=== PATIENT | male | born 1955 | race Caucasian/White ===

== ENCOUNTER → 2020-12-23 11:15 | Outpatient (BNVA) | payer SELFPAY | PROVIDERS: Visit Provider Nurse Practitioner Family | DX: Z20.822 Contact with and (suspected) exposure to COVID-19 (principal); J06.9 Acute upper respiratory infection, unspecified | CPT/HCPCS: 87426 ==

== ENCOUNTER → 2021-07-12 10:58 | Outpatient (BNVA) | payer SELFPAY | PROVIDERS: Visit Provider Nurse Practitioner Family | DX: Z20.822 Contact with and (suspected) exposure to COVID-19 (principal) | CPT/HCPCS: 87635 ==

== ENCOUNTER 2021-07-17 14:55 | Inpatient (IN) | payer SELFPAY ==
[2021-07-17] VITALS (9 sets, daily range): BP systolic 90–133; BP diastolic 49–80; PULSE 91–114; RESP 20–31; TEMP 36.1–37; O2SAT 91–96; BMI 16.2; BMI 22.1
--- NOTE | 2021-07-17 15:07 | XR_ITS ---
WS: [id number] Portable AP upright chest, 07/17/2021 Clinical Data: covid Comparison: None. Findings: No nodules, masses or effusions are seen. The heart is enlarged. The pulmonary vascularity is not increased. No pneumonia or pneumothorax is seen. Monitor leads are on the chest wall. XR/XR chest 1V portable [id number] Impression: Cardiomegaly.
--- NOTE | 2021-07-17 15:16 | ED_ITS ---
HPI - COVID General: Chief Complaint: COVID symptoms Stated Complaint: covid positive Time Seen by Provider: 07/17/21 15:07 Triage information: Has fever, cough or shortness of breath . Exposure to COVID + person last 14 days COVID Results: SARS-CoV-2 Antigen (Rapid) Negative (Negative) 12/23/20 11:15 12/23/20 SARS-CoV-2 (PCR) Detected (NOT DETECT) A 07/12/21 10:58 07/12/21 Coronavirus Type 229E (PCR) Not detected (NOT DETECT) 07/12/21 10:58 07/12/21 COUNTS INCLUDE 234 BEDS AT THE [facility] ED PFS: Social History Smoking and tobacco status: current every day smoker Course Vital Signs: Vital signs: Vital Signs Temperature 98.6 F 07/17/21 15:07 Pulse Rate 114 H 07/17/21 15:07 Respiratory Rate 22 H 07/17/21 15:07 Blood Pressure 133/79 07/17/21 15:07 Pulse Oximetry 96 07/17/21 15:11 MDM - COVID Lab Data : 07/17/21 15:15 07/17/21 15:42 Laboratory Results WBC 5.5 10^3/uL (4.0-10.0) 07/17/21 15:15 RBC 4.04 10^6/uL (4.1-5.3) L 07/17/21 15:15 Hgb 13.3 g/dL (11.7-16.6) 07/17/21 15:15 Hct 38.7 % (42.0-52.0) L 07/17/21 15:15 MCV 95.8 fl (80-94) H 07/17/21 15:15 MCH 32.9 pg (28.0-34.0) 07/17/21 15:15 MCHC 34.4 g/dL (30.0-36.0) 07/17/21 15:15 RDW 16.8 % (12.1-15.1) H 07/17/21 15:15 Plt Count 77 10^3/cmm (130-400) L 07/17/21 15:15 MPV 11.1 fL (7.4-10.4) H 07/17/21 15:15 Neut % (Auto) 92.0 % 07/17/21 15:15 Lymph % (Auto) 3.5 % 07/17/21 15:15 Chicot % (Auto) 2.9 % 07/17/21 15:15 Eos % (Auto) 0.0 % 07/17/21 15:15 Baso % (Auto) 0.9 % 07/17/21 15:15 Neut # (Auto) 5.01 10^3/uL (1.8-7.7) 07/17/21 15:15 Lymph # (Auto) 0.2 10^3/uL (0.8-4.8) L 07/17/21 15:15 Chicot # (Auto) 0.2 10^3/uL (0.2-0.9) 07/17/21 15:15 Eos # (Auto) 0.0 10^3/uL (0.0-0.8) 07/17/21 15:15 Baso # (Auto) 0.1 10^3/uL (0.0-0.1) 07/17/21 15:15 Nucleated RBC % (auto) 0 % 07/17/21 15:15 Nucleated RBCs # 0.0 /100WBC 07/17/21 15:15 Sodium Cancelled 07/17/21 15:15 Potassium Cancelled 07/17/21 15:15 Chloride Cancelled 07/17/21 15:15 Carbon Dioxide Cancelled 07/17/21 15:15 Anion Gap Cancelled 07/17/21 15:15 BUN Cancelled 07/17/21 15:15 Creatinine Cancelled 07/17/21 15:15 GFR Calculation Cancelled 07/17/21 15:15 Glucose Cancelled 07/17/21 15:15 Calculated Osmolality Cancelled 07/17/21 15:15 Calcium Cancelled 07/17/21 15:15 SARS-CoV-2 Antigen (Rapid) Negative (Negative) 12/23/20 11:15 12/23/20 SARS-CoV-2 (PCR) Detected (NOT DETECT) A 07/12/21 10:58 07/12/21 Coronavirus Type 229E (PCR) Not detected (NOT DETECT) 07/12/21 10:58 07/12/21 Discharge Plan Discharge Patient Disposition: Home Clinical Impression: Generalized weakness, Dehydration, COVID Condition: Stable Prescriptions: New Zofran 4 mg tablet 4 mg PO TID PRN (Reason: nausea and vomiting) 4 Days Qty: 12 0RF acetaminophen 500 mg tablet 500 mg PO Q6H PRN (Reason: pain) 5 Days Qty: 20 0RF Pepcid 20 mg tablet 20 mg PO BID PRN (Reason: abdominal pain) 10 Days Qty: 20 0RF Maalox Advanced 1,000-60 mg tablet,chewable 1 tab PO TID PRN (Reason: abdominal pain) 7 Days Qty: 21 0RF Discharge Diet: Advance as tolerated Discharge Activity: Increase activity as tolerated Patient Instructions: COVID-19 (Coronavirus Disease 2019) (ED) Activity Restrictions/Additional Instructions: Come back to the emergency room if your symptoms worsen, have any shortness of breath, fever/chills, dehydration, inability tolerate food or drinks, any difficulty breathing, or any new or concerning complaints. Please return the emergency room if your pulse ox reads less than 88%. Coding Level of Care Code ED Lead Maintenance Technician for Jethro Hernandez
[2021-07-17 15:23] LABS: Basophils # 0.1 10^3/uL (0.0-0.1); Basophils % 0.9 %; Hematocrit 38.7 % (42.0-52.0); Hemoglobin 13.3 g/dL (11.7-16.6); Lymphocytes # 0.2 10^3/uL (0.8-4.8); Lymphocytes % 3.5 %; Mean Corpuscular HGB Conc 34.4 g/dL (30.0-36.0); Mean Corpuscular Hemoglobin 32.9 pg (28.0-34.0); Mean Corpuscular Volume 95.8 fl (80-94); Mean Platelet Volume 11.1 fL (7.4-10.4); Monocytes # 0.2 10^3/uL (0.2-0.9); Monocytes % 2.9 %; Neutrophils # 5.01 10^3/uL (1.8-7.7); Nucleated Red Blood Cells % 0 %; Platelet Count 77 10^3/cmm (130-400); Red Blood Count 4.04 10^6/uL (4.1-5.3); Red Cell Distribution Width 16.8 % (12.1-15.1); White Blood Count 5.5 10^3/uL (4.0-10.0)
[2021-07-17] MEDS: acetaminophen 500 mg Tablet PO (15:31)
[2021-07-17] MEDS: sodium chloride 0.9% 1,000 ML 999 ML IV (15:31)
[2021-07-17] MEDS: famotidine 20 mg/2 mL INJ IVP (15:31)
--- NOTE | 2021-07-17 15:48 | W.ED.GENADLT ---
HPI - General Adult General: Chief complaint: COVID symptoms Stated complaint: covid positive Time Seen by Provider: 07/17/21 15:07 History of Present Illness: CC: Shortness of breath, fever and generalized weakness HPI: This is a 66 yo patient w/ hx of COVID diagnosis from 5 days ago presenting to the ED with malaise, generalized weakness, cough sputum production, and fever at home x 5days. Since onset of symptoms, has had some shortness of breath and decreased PO intake. NO recent travel. +Reports nausea and diarreha. Denies chest pain, vomiting, diaphoresis, exertional shortness of breath, GI or other complaints. Denies any pleuritic chest pain, recent surgery/immobilization/travel, or hematemesis or hx of VTE in the past. Onset: 5 days ago Duration: ongoing for the last 5 days Location: home Severity: mild/moderate Associated symptoms: Reports dyspnea and nausea; Deny chest pain, rash, palpitations or vomiting Review of Systems Const: Reports: fever(s), chills, body aches, fatigue and other (+generalized wekaness) Eyes: Denies: change in vision ENMT: Denies: mouth pain Card: Denies: chest pain or palpitations Resp: Reports: dyspnea; Denies: non-productive cough GI: Reports: nausea and diarrhea; Denies: abdominal pain or vomiting : Denies: dysuria Musc: Denies: extremity pain Skin/Breast: Denies: rash or new lesions Neuro: Denies: weakness in extremities Psych: Reports: other (Normal mood) Giancarlo/Lymph: Denies: easy bruising PFS ED PFSH: Medical History COVID Social History Smoking and tobacco status: current every day smoker Alcohol intake: never Substance/Drug Use: never Physical Exam Const: COMMON NORMALS: alert HENMT: COMMON NORMALS: atraumatic HEAD & SCALP: atraumatic MOUTH: moist mucous membranes abnormal Eye: COMMON NORMALS: EOMs intact bilaterally and conjunctivae normal CONJUNCTIVA: Yes conjunctivae normal Neck/C-Spine: COMMON NORMALS: full ROM and supple Resp: COMMON NORMALS: normal respiratory effort OTHER: +decreased breath sounds b/l Cardio: COMMON NORMALS: regular rhythm RATE: tachycardic RHYTHM: regular rhythm GI: COMMON NORMALS: Soft to palpation and non-tender PALPATION: Yes Soft to palpation Extremity: COMMON NORMALS: full ROM Neuro: SENSORIUM/ORIENTATION: Yes alert MOTOR EXAM: No Abnormal motor strength present and Other motor observations present (no focal motor deficits) Psych: COMMON NORMALS: speech normal SPEECH: Yes normal speech MOOD & AFFECT: Yes euthymic mood Course Vital Signs: Vital signs: Vital Signs Temperature 101.9 F H 07/21/21 07:00 Pulse Rate 89 07/21/21 09:15 Respiratory Rate 18 07/21/21 09:49 Blood Pressure 120/76 07/21/21 09:15 Pulse Oximetry 95 07/21/21 09:49 [facility] - General Adult Medical Decision Making [66]yo patient presenting to the ED with shortness of breath, cough, nausea, diarrhea and malaise concerning for COVID and dehydration. Given History, Exam, and Workup presentation most consistent with pneumonia.Presentation not consistent with PE, COPD exacerbation, Pneumothorax, TB, Atypical ACS, Esophageal Rupture, Toxic Exposure, Foreign Body Airway Obstruction. Workup: CBC, BMP, XR chest Intervention: IVF, pepcid, tylenol zofran On reassessment, patient was noted to be hypotensive with blood pressure of 80/40 and hypoxemic to 88% after IVF. Decision was made at which point to evaluate for PE. CTA negative for PE however there is no findings of cirrhosis on CTA. Albumin of 2.5 today. BP stabilized around 90/50. Patient does not know nor is aware that he has cirrhosis when I discussed the incidental cirrhosis findings on the CTA chest. I suspect that patient may have been third spacing from the 1.5 L of fluid given total. Patient's mental status has significantly improved after IVF. Patient is receiving albumin currently. However given low blood pressure and new onset hypoxemia, patient remitted to hospital for albumin and receive slow rehydration. Disposition: admission Lab Data : 07/21/21 04:25 07/21/21 04:25 Radiology Impressions Chest CTA 07/17/21 18:35 IMPRESSION: 1. No evidence for pulmonary embolus. Evaluation of the smaller arteries is limited by significant breathing motion artifact. 2. No acute pulmonary finding. 3. Liver cirrhosis with portal venous hypertension. 4. Splenomegaly. Liver Ultrasound 07/18/21 11:48 IMPRESSION: 1. Technically very limited evaluation of the RIGHT upper quadrant due to lack of cooperation and short of breath. 2. Moderate hepatomegaly with changes of cirrhosis. Unable to evaluate the portal vein for reversal of flow. 3. Small amount of gallbladder sludge with no stones identified. Head CT 07/20/21 08:55 IMPRESSION: 1. Similar appearing subacute infarct in the left temporal region 2. Mild presumed small vessel ischemic disease of indeterminate age. 3. No acute intracranial hemorrhage. Head/Neck CTA 07/20/21 08:55 IMPRESSION: 1. Irregular area of low density in the left temporal lobe with loss of garcia-white matter differentiation consistent with a subacute infarct. 2. No significant stenosis nor large vessel occlusion. IMPRESSION: No hemodynamically significant stenosis or occlusion. REFERENCES: NASCET CRITERIA. The degree of internal carotid artery stenosis is based on NASCET criteria. Normal is no stenosis. Mild is less than 50% stenosis. Moderate is 50-69% stenosis. Severe is 70% to 99% stenosis. Total occlusion is no detectable patent lumen. Carotid Doppler Study 07/20/21 18:20 IMPRESSION: 1. Suboptimal examination due to poor patient positioning and inability to cooperate. 2. No definite arterial stenosis involving the visualized carotid arteries. 3. A large bandage over the right neck obscures evaluation of the left mid and distal internal carotid artery. 4. No definite flow is seen in the left vertebral artery. This could be due to poor patient positioning or arterial occlusion. 5. All of the waveforms (both internal carotid and common carotid) show high resistance flow. 6. Heterogeneous atherosclerotic plaque in the carotid bulb. 7. Consider CTA to further assess. REFERENCES: SRU CRITERIA. The degree of internal carotid artery stenosis is based on criteria defined by the Society of Radiologists in Ultrasound (SRU). Normal is no stenosis. Mild is less than 50% stenosis. Moderate is 50-69% stenosis. Severe is greater than 69% stenosis to near occlusion. Near occlusion is a markedly narrowed lumen. Total occlusion is no detectable patent lumen. ADDENDUM: 07/20/[address] Estrada at 07/20/2021 8:47 AM CDT. Chest X-Ray 07/21/21 07:00 IMPRESSION: Persistent bilateral airspace opacities. KUB X-Ray 07/21/21 08:24 IMPRESSION: Nasogastric tube position as above. No acute abdominal abnormality. Laboratory Results WBC 5.5 10^3/uL (4.0-10.0) 07/17/21 15:15 RBC 4.04 10^6/uL (4.1-5.3) L 07/17/21 15:15 Hgb 13.3 g/dL (11.7-16.6) 07/17/21 15:15 Hct 38.7 % (42.0-52.0) L 07/17/21 15:15 MCV 95.8 fl (80-94) H 07/17/21 15:15 MCH 32.9 pg (28.0-34.0) 07/17/21 15:15 MCHC 34.4 g/dL (30.0-36.0) 07/17/21 15:15 RDW 16.8 % (12.1-15.1) H 07/17/21 15:15 Plt Count 77 10^3/cmm (130-400) L 07/17/21 15:15 MPV 11.1 fL (7.4-10.4) H 07/17/21 15:15 Neut % (Auto) 92.0 % 07/17/21 15:15 Lymph % (Auto) 3.5 % 07/17/21 15:15 Maries % (Auto) 2.9 % 07/17/21 15:15 Eos % (Auto) 0.0 % 07/17/21 15:15 Baso % (Auto) 0.9 % 07/17/21 15:15 Neut # (Auto) 5.01 10^3/uL (1.8-7.7) 07/17/21 15:15 Lymph # (Auto) 0.2 10^3/uL (0.8-4.8) L 07/17/21 15:15 Maries # (Auto) 0.2 10^3/uL (0.2-0.9) 07/17/21 15:15 Eos # (Auto) 0.0 10^3/uL (0.0-0.8) 07/17/21 15:15 Baso # (Auto) 0.1 10^3/uL (0.0-0.1) 07/17/21 15:15 Nucleated RBC % (auto) 0 % 07/17/21 15:15 Nucleated RBCs # 0.0 /100WBC 07/17/21 15:15 Sodium 130 mmol/L (136-145) L 07/17/21 15:42 Sodium Cancelled 07/17/21 15:42 Potassium 3.1 mmol/L (3.5-5.1) L 07/17/21 15:42 Potassium Cancelled 07/17/21 15:42 Chloride 95 mmol/L (98-107) L 07/17/21 15:42 Chloride Cancelled 07/17/21 15:42 Carbon Dioxide 17 mmol/L (22-29) L 07/17/21 15:42 Carbon Dioxide Cancelled 07/17/21 15:42 Anion Gap 21.1 (5-19) H 07/17/21 15:42 Anion Gap Cancelled 07/17/21 15:42 BUN 39 mg/dL (8-23) H 07/17/21 15:42 BUN Cancelled 07/17/21 15:42 Creatinine 1.4 mg/dL (0.7-1.2) H 07/17/21 15:42 Creatinine Cancelled 07/17/21 15:42 GFR Calculation 51.0 mL/min (90-130) L 07/17/21 15:42 GFR Calculation Cancelled 07/17/21 15:42 Glucose 120 mg/dL (65-115) H 07/17/21 15:42 Glucose Cancelled 07/17/21 15:42 Calculated Osmolality 281 mOsm/kg (285-295) L 07/17/21 15:42 Calculated Osmolality Cancelled 07/17/21 15:42 Calcium 8.3 mg/dL (8.5-10.5) L 07/17/21 15:42 Calcium Cancelled 07/17/21 15:42 Total Bilirubin 4.6 mg/dL (0.15-1.2) H 07/17/21 15:42 AST 61 U/L (0-40) H 07/17/21 15:42 ALT 37 U/L (0-41) 07/17/21 15:42 Alkaline Phosphatase 70 IU/L (40-130) 07/17/21 15:42 Ammonia 71 umol/L (16-60) H 07/17/21 20:32 Total Protein 8.7 g/dL (6.6-8.7) 07/17/21 15:42 Albumin 2.8 g/dL (3.5-5.2) L 07/17/21 15:42 Globulin 5.9 g/dL (1.3-4.6) H 07/17/21 15:42 Ethyl Alcohol < 10 mg/dL (0-10) 07/17/21 15:42 Imaging Data Other Imaging: Radiologist's impression: [employer] [address] [address] Scan Report Signed Patient: Luis Gutierrez Unit #: [id number] : 1955 Age/Sex: 66 / M ADM Date: 07/17/21 Loc: ER Room/Bed: Attending Dr: Ordering Provider/Ordering MD: Clarence Thompson MD Date of Service: 07/17/21 Procedure(s): CT angio chest PE protcl [id number] Accession Number(s): [id number] Report Number: [id number] PROCEDURE INFORMATION: Exam: CTA Chest With Contrast Exam date and time: 07/17/2021 6:35 PM Age: 66 years old Clinical indication: Shortness of breath; Additional info: Eval for pe TECHNIQUE: Imaging protocol: Computed tomographic angiography of the chest with contrast. 3D rendering (Not supervised by radiologist): MIP and/or 3D reconstructed images were created by the technologist. Radiation optimization: All CT scans at this facility use at least one of these dose optimization techniques: automated exposure control; mA and/or kV adjustment per patient size (includes targeted exams where dose is matched to clinical indication); or iterative reconstruction. Contrast material: VISI 320; Contrast volume: 95 ml; Contrast route: INTRAVENOUS (IV);? COMPARISON: CR XR chest 1V portable [id number] 07/17/2021 3:21 PM RADIATION DOSE METRICS: Total DLP (mGy-cm): 600.21 FINDINGS: Pulmonary arteries: No filling defects identified within the pulmonary arteries. Evaluation of the smaller arteries is limited by significant breathing motion artifact. Aorta: Unremarkable. No aortic aneurysm. No aortic dissection. Veins: Recanalized umbilical vein and mild gastroesophageal varices, consistent with portal venous hypertension. Lungs: Calcified granuloma in the right upper lobe. Minimal scattered atelectasis in both lungs. No consolidation. Pleural spaces: Unremarkable. No pneumothorax. No pleural effusion. Heart: Coronary artery calcifications. The heart size is upper normal. Lymph nodes: Calcified right hilar lymph nodes. Liver: Cirrhotic appearing liver with a nodular contour. Spleen: Splenomegaly with calcified granulomas. Bones/joints: Unremarkable. No acute fracture. Soft tissues: Unremarkable. CT/CT angio chest PE protcl [id number] IMPRESSION: 1. No evidence for pulmonary embolus.? Evaluation of the smaller arteries is limited by significant breathing motion artifact. 2. No acute pulmonary finding. 3. Liver cirrhosis with portal venous hypertension. 4. Splenomegaly.? ? Dictated By: Richard Murray Signed By: Richard Murray Signed Date/Time: 07/17/211918 DD/ [address] [address] XRay Report Signed Patient: Luis Gutierrez Unit #: [id number] : 1955 Age/Sex: 66 / M ADM Date: 07/17/21 Loc: ER Room/Bed: Attending Dr: Ordering Provider/Ordering MD: Clarence Thompson MD Date of Service: 07/17/21 Procedure(s): XR chest 1V portable [id number] Accession Number(s): [id number] Report Number: [id number] WS: [id number] Portable AP upright chest, 07/17/2021 Clinical Data: covid Comparison: None. Findings: No nodules, masses or effusions are seen. The heart is enlarged. The pulmonary vascularity is not increased. No pneumonia or pneumothorax is seen. Monitor leads are on the chest wall. XR/XR chest 1V portable [id number] Impression: Cardiomegaly. ? Dictated By: Radha Cordero MD Signed By: Radha Cordero MD Signed Date/Time: 07/17/216 DD/ 44 Discharge Plan Discharge Patient Disposition: Home Clinical Impression: Generalized weakness, Dehydration, COVID Condition: Stable Discharge Diet: Advance as tolerated Discharge Activity: Increase activity as tolerated Coding Level of Care Code ED Associate Professor Of Forestry for Chg Fwd Exam Comprehensive
[2021-07-17] MEDS: sodium chloride 0.9% 500 ML IV (16:16)
[2021-07-17] MEDS: ondansetron 2 mg/ML SDV 2 mL 4 MG IVP (16:16)
[2021-07-17] MEDS: potassium chloride ER 20 mEq Tablet 40 MEQ PO (18:17)
[2021-07-17] MEDS: potassium chloride ER 20 mEq Tablet PO (18:17)
[2021-07-17] MEDS: calcium gluconate 0.9% NaCL 1 GM/50 ML PREMIX IV ×2 (18:20→19:54)
--- NOTE | 2021-07-17 18:35 | CTR_ITS ---
PROCEDURE INFORMATION: Exam: CTA Chest With Contrast Exam date and time: 07/17/2021 6:35 PM Age: 66 years old Clinical indication: Shortness of breath; Additional info: Eval for pe TECHNIQUE: Imaging protocol: Computed tomographic angiography of the chest with contrast. 3D rendering (Not supervised by radiologist): MIP and/or 3D reconstructed images were created by the technologist. Radiation optimization: All CT scans at this facility use at least one of these dose optimization techniques: automated exposure control; mA and/or kV adjustment per patient size (includes targeted exams where dose is matched to clinical indication); or iterative reconstruction. Contrast material: VISI 320; Contrast volume: 95 ml; Contrast route: INTRAVENOUS (IV); COMPARISON: CR XR chest 1V portable [id number] 07/17/2021 3:21 PM RADIATION DOSE METRICS: Total DLP (mGy-cm): 600.21 FINDINGS: Pulmonary arteries: No filling defects identified within the pulmonary arteries. Evaluation of the smaller arteries is limited by significant breathing motion artifact. Aorta: Unremarkable. No aortic aneurysm. No aortic dissection. Veins: Recanalized umbilical vein and mild gastroesophageal varices, consistent with portal venous hypertension. Lungs: Calcified granuloma in the right upper lobe. Minimal scattered atelectasis in both lungs. No consolidation. Pleural spaces: Unremarkable. No pneumothorax. No pleural effusion. Heart: Coronary artery calcifications. The heart size is upper normal. Lymph nodes: Calcified right hilar lymph nodes. Liver: Cirrhotic appearing liver with a nodular contour. Spleen: Splenomegaly with calcified granulomas. Bones/joints: Unremarkable. No acute fracture. Soft tissues: Unremarkable. CT/CT angio chest PE protcl [id number] IMPRESSION: 1. No evidence for pulmonary embolus. Evaluation of the smaller arteries is limited by significant breathing motion artifact. 2. No acute pulmonary finding. 3. Liver cirrhosis with portal venous hypertension. 4. Splenomegaly.
[2021-07-17] MEDS: iodixanol 320 mg/mL 100mL Btl IV (18:48)
[2021-07-17] MEDS: dexamethasone 10 mg/mL INJ 6 MG IVP (19:32)
[2021-07-17 19:45] LABS: Anion Gap 21.1 (5-19); Carbon Dioxide 17 mmol/L (22-29); Chloride 95 mmol/L (98-107); Potassium 3.1 mmol/L (3.5-5.1); Sodium 130 mmol/L (136-145)
[2021-07-17 19:46] LABS: Blood Urea Nitrogen 39 mg/dL (8-23); Calcium 8.3 mg/dL (8.5-10.5); Glucose 120 mg/dL (65-115); Osmolality Calculated 281 mOsm/kg (285-295)
[2021-07-17 20:02] LABS: Alanine Aminotransferase 37 U/L (0-41); Alkaline Phosphatase 70 IU/L (40-130); Total Protein 8.7 g/dL (6.6-8.7)
[2021-07-17 20:03] LABS: Albumin Level 2.8 g/dL (3.5-5.2); Aspartate Amino Transferase 61 U/L (0-40); Globulin 5.9 g/dL (1.3-4.6); Total Bilirubin 4.6 mg/dL (0.15-1.2)
[2021-07-17] MEDS: remdesivir 200 MG in sodium chloride 0.9% (100 ml) 60 ML 100 MG IV (20:32)
[2021-07-17 20:58] LABS: Ammonia 71 umol/L (16-60)
[2021-07-17 23:04] LABS: Alcohol Level < 10 mg/dL (0-10)
--- NOTE | 2021-07-17 23:34 | PC.NURSE ---
Pt's right eye appears yellow, right eye very bloodshot. Both eyes have moderate amount of yellow drainage. Pt is A/O x 4, but short-term memory seems to be poor.
--- NOTE | 2021-07-17 23:40 | PC.NURSE ---
Right pupil 3 mm, left pupil 2 mm
[2021-07-18] VITALS (43 sets, daily range): BP systolic 81–154; BP diastolic 50–102; PULSE 66–160; RESP 19–38; TEMP 35.8–37; O2SAT 85–95
[2021-07-18] MEDS: lactulose oral liq 20 gm/30 mL UDC 10 GM PO ×5 (00:01→22:33)
[2021-07-18] MEDS: sodium chlor 0.9% + KCl 20 mEq 20 MEQ/1,000 ML BAG 50 MEQ IV (00:02)
[2021-07-18] MEDS: acetaminophen 325 mg Tablet 650 MG PO (00:43)
[2021-07-18] MEDS: benzonatate 100 mg Capsule PO ×2 (00:43→08:36)
[2021-07-18] MEDS: FUROsemide 10 mg/mL SDV 4mL 40 MG IVP ×2 (01:55→17:24)
[2021-07-18] MEDS: guaiFENesin 100 mg/5 mL UDC 10 mL 400 MG PO (01:56)
--- NOTE | 2021-07-18 02:08 | PC.NURSE ---
Pt appears restless, increased work of breathing, tachycardia, increased cough. Physician will be notified.
--- NOTE | 2021-07-18 02:11 | PC.NURSE ---
RT notified of pt's increased oxygen demand, will bring high flow nasal cannula.
[2021-07-18] MEDS: ipratropium-albuterol 3 mL Neb INHALATION ×4 (02:28→21:58)
--- NOTE | 2021-07-18 02:51 | PC.NURSE ---
Pt remains alert and oriented to person, place, time, and situation. Pt does not clearly remember coming to the hospital. He is restless and impulsive. Short term memory continues to be inadequate. Pt reports that his last drink was 2 weeks ago, and he has not smoked cigarettes in 2 weeks. Pt's sister tells me that this is not true, and her brother starts drinking mid-morning, and does not stop until he falls asleep at night.
[2021-07-18 03:44] LABS: Basophils % 0.4 %; Eosinophils # 0.1 10^3/uL (0.0-0.8); Eosinophils % 0.5 %; Hematocrit 41.4 % (42.0-52.0); Hemoglobin 13.9 g/dL (11.7-16.6); Lymphocytes # 0.3 10^3/uL (0.8-4.8); Mean Corpuscular HGB Conc 33.6 g/dL (30.0-36.0); Mean Corpuscular Hemoglobin 33.2 pg (28.0-34.0); Mean Corpuscular Volume 98.8 fl (80-94); Mean Platelet Volume 12.3 fL (7.4-10.4); Monocytes # 0.2 10^3/uL (0.2-0.9); Monocytes % 2.4 %; Neutrophils % 92.5 %; Nucleated Red Blood Cells % 0 %; Platelet Count 77 10^3/cmm (130-400); Red Blood Count 4.19 10^6/uL (4.1-5.3); Red Cell Distribution Width 17.3 % (12.1-15.1); White Blood Count 9.7 10^3/uL (4.0-10.0)
[2021-07-18 04:11] LABS: Slide Review Slide Review Perform
--- NOTE | 2021-07-18 04:14 | PC.NURSE ---
Pt calm. Urinary catheter placement discussed with patient. Pt agreed to placement. Upon insertion of the catheter into urinary meatus, pt began screaming and thrashing. Pt refused catheter placement, but did agree to try to void. Pt voided 500 mls and had an equal amount of urine miss the urinal due to screaming and thrashing while urinating.
[2021-07-18 04:20] LABS: Alanine Aminotransferase 33 U/L (0-41); Albumin Level 3.1 g/dL (3.5-5.2); Alkaline Phosphatase 74 IU/L (40-130); Anion Gap 19.9 (5-19); Aspartate Amino Transferase 53 U/L (0-40); Blood Urea Nitrogen 38 mg/dL (8-23); Calcium 9.2 mg/dL (8.5-10.5); Carbon Dioxide 17 mmol/L (22-29); Chloride 98 mmol/L (98-107); Creatinine Clr Calc Pharmacy 52.2318; Globulin 5.3 g/dL (1.3-4.6); Glomerular Filtration Rate 67.4 mL/min (90-130); Glucose 178 mg/dL (65-115); Magnesium 2.4 mg/dL (1.7-2.3); Osmolality Calculated 285 mOsm/kg (285-295); Potassium 3.9 mmol/L (3.5-5.1); Sodium 131 mmol/L (136-145); Thyroid Stimulating Hormone 1.47 uIU/mL (0.27-4.20); Total Bilirubin 4.2 mg/dL (0.15-1.2); Total Protein 8.4 g/dL (6.6-8.7)
[2021-07-18 04:21] LABS: Procalcitonin 1.33 ng/mL (0-0.5)
[2021-07-18 04:28] LABS: Hepatitis A Antibody IgM Non-Reactive (Nonreactive); Hepatitis B Core AB, Total Non-Reactive (Nonreactive); Hepatitis B Surface AB 3.5 (11.5-1000); Hepatitis B Surface Antigen Non-Reactive (Nonreactive); Hepatitis C Virus Antibody Reactive (Nonreactive)
[2021-07-18 04:29] LABS: D Dimer 18.67 ug/mIFEU (0-0.59)
--- NOTE | 2021-07-18 05:20 | PM.HP ---
Providers/Chief Complaint Admitting Physician: Arielle Berkowitz MD Primary Care Provider: - Chief Complaint: covid positive History of Present Illness Luis Gutierrez is a 66 year old male without known PMH, however has not been seen by PCP in several years presented to the ED with 5 days old diagnosis of Covid. His symptoms have included generalized fatigue malaise cough and minimal expectoration. He does endorse some shortness of breath and poor p.o. intake. Review of systems is positive for nausea and diarrhea. He was noted to be dehydrated upon ER arrival and received 1.5 L of IV fluids. Following fluid administration reportedly patient had a new oxygen requirement of 2 L/min. CTA of the chest was negative for PE or gross consolidation, however incidental note was made of liver cirrhosis and portal hypertension. Transiently patient's blood pressure dropped to 80/40 and in view of hypotension, new O2 requirement patient is being admitted for close monitoring to the ICU. Reportedly patient was also slightly confused upon first arrival, mentation improved with fluids. Ammonia level has returned at 70. h/o daily alcohol intake+ Review of Systems General: Reports: 10 or more systems reviewed and unremarkable except in HPI and below Const: Denies: fever(s), chills or body aches Eyes: Denies: change in vision, blurry vision or photophobia ENMT: Reports: hoarseness; Denies: throat pain, enlarged tonsils, odynophagia or nasal congestion Card: Denies: chest pain, palpitations, irregular heart rhythm, edema, swelling of feet/ankles, lightheadedness, pre-syncope, dyspnea on exertion or orthopnea Resp: Denies: dyspnea, productive cough, non-productive cough, wheezing, stridor, pain on inspiration, change in phlegm color, hemoptysis or chest congestion GI: Denies: abdominal pain, nausea, vomiting, hematemesis, coffee ground emesis, dysphagia, heartburn, diarrhea, constipation, GI cramping, change in stool character, hematochezia or melena : Denies: flank pain, dysuria, urinary frequency, urinary urgency, urinary hesitancy or hematuria Musc: Denies: neck pain, back pain, extremity pain, joint swelling, joint warmth or deformity Neuro: Denies: headache(s), numbness in extremities, weakness in extremities, sensory changes, difficulty walking, frequent falls, dizziness, vertigo, behavioral changes, Slurred speech present or seizure-like activity Psych: Denies: anxiety, depression, suicidal ideation or homicidal ideation Endo: Denies: polyuria, polydipsia, tired all the time, cold intolerance or hot flashes Giancarlo/Lymph: Denies: easy bruising or easy bleeding Medications/Allergies Home Medications Medication Instructions Recorded Confirmed Last Taken Type acetaminophen 500 mg tablet 500 mg PO Q6H PRN 5 Days #20 tab 07/17/21 Unknown Rx calcium carbonate 1,000 1 tab PO TID PRN 7 Days #21 tab 07/17/21 Unknown Rx mg-simethicone 60 mg chewable tablet (Maalox Advanced) famotidine 20 mg tablet (Pepcid) 20 mg PO BID PRN 10 Days #20 tab 07/17/21 Unknown Rx ondansetron HCl 4 mg tablet 4 mg PO TID PRN 4 Days #12 tab 07/17/21 Unknown Rx (Zofran) Allergies Allergy/AdvReac Type Severity Reaction Status Date / Time No Known Allergies Allergy Verified 07/12/21 10:19 PFSH Acute PFSH: Medical History COVID Social History Smoking and tobacco status: current every day smoker Alcohol intake: never Substance/Drug Use: never Vitals/I&O/Wt Last Vital Signs Temp 98.6 F 07/18/21 04:00 Pulse 95 07/18/21 04:30 Resp 31 H 07/18/21 04:30 BP 125/85 07/18/21 04:30 Pulse Ox 89 L 07/18/21 04:30 07/17/21 07/17/21 07/18/21 14:59 22:59 06:59 Intake Total 1700 / 1700 195 / 1895 Output Total 700 / 700 Balance 1700 / 1700 -505 / 1195 Weight last 48 hrs Weight 86.999 kg Weight 86.999 kg Weight 54.431 kg Physical Exam Narrative: GEN: Awake, alert and oriented, coughing+ CVS: S1S2 N RS: B/L crcakles to auscultation at lung bases Abd: Soft, nt/nd , bs+ 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 Chest CTA 07/17/21 18:35 IMPRESSION: 1. No evidence for pulmonary embolus. Evaluation of the smaller arteries is limited by significant breathing motion artifact. 2. No acute pulmonary finding. 3. Liver cirrhosis with portal venous hypertension. 4. Splenomegaly. Laboratory Results WBC 9.7 10^3/uL (4.0-10.0) 07/18/21 03:20 RBC 4.19 10^6/uL (4.1-5.3) 07/18/21 03:20 Hgb 13.9 g/dL (11.7-16.6) 07/18/21 03:20 Hct 41.4 % (42.0-52.0) L 07/18/21 03:20 MCV 98.8 fl (80-94) H 07/18/21 03:20 MCH 33.2 pg (28.0-34.0) 07/18/21 03:20 MCHC 33.6 g/dL (30.0-36.0) 07/18/21 03:20 RDW 17.3 % (12.1-15.1) H 07/18/21 03:20 Plt Count 77 10^3/cmm (130-400) L 07/18/21 03:20 MPV 12.3 fL (7.4-10.4) H 07/18/21 03:20 Neut % (Auto) 92.5 % 07/18/21 03:20 Lymph % (Auto) 3.0 % 07/18/21 03:20 Green % (Auto) 2.4 % 07/18/21 03:20 Eos % (Auto) 0.5 % 07/18/21 03:20 Baso % (Auto) 0.4 % 07/18/21 03:20 Neut # (Auto) 9.00 10^3/uL (1.8-7.7) H 07/18/21 03:20 Lymph # (Auto) 0.3 10^3/uL (0.8-4.8) L 07/18/21 03:20 Green # (Auto) 0.2 10^3/uL (0.2-0.9) 07/18/21 03:20 Eos # (Auto) 0.1 10^3/uL (0.0-0.8) 07/18/21 03:20 Baso # (Auto) 0.0 10^3/uL (0.0-0.1) 07/18/21 03:20 Nucleated RBC % (auto) 0 % 07/18/21 03:20 Nucleated RBCs # 0.0 /100WBC 07/18/21 03:20 PT 19.40 SECONDS (12.1-14.9) H 07/18/21 03:20 INR 1.60 (0.8-1.2) H 07/18/21 03:20 D-Dimer 18.67 ug/mIFEU (0-0.59) H 07/18/21 03:20 Sodium 131 mmol/L (136-145) L 07/18/21 03:20 Potassium 3.9 mmol/L (3.5-5.1) 07/18/21 03:20 Chloride 98 mmol/L (98-107) 07/18/21 03:20 Carbon Dioxide 17 mmol/L (22-29) L 07/18/21 03:20 Anion Gap 19.9 (5-19) H 07/18/21 03:20 BUN 38 mg/dL (8-23) H 07/18/21 03:20 Creatinine 1.1 mg/dL (0.7-1.2) 07/18/21 03:20 GFR Calculation 67.4 mL/min (90-130) L 07/18/21 03:20 Glucose 178 mg/dL (65-115) H 07/18/21 03:20 Calculated Osmolality 285 mOsm/kg (285-295) 07/18/21 03:20 Calcium 9.2 mg/dL (8.5-10.5) 07/18/21 03:20 Magnesium 2.4 mg/dL (1.7-2.3) H 07/18/21 03:20 Total Bilirubin 4.2 mg/dL (0.15-1.2) H 07/18/21 03:20 AST 53 U/L (0-40) H 07/18/21 03:20 ALT 33 U/L (0-41) 07/18/21 03:20 Alkaline Phosphatase 74 IU/L (40-130) 07/18/21 03:20 Ammonia 71 umol/L (16-60) H 07/17/21 20:32 C-Reactive Protein 30.0 mg/L (0.0-4.9) H 07/18/21 03:20 Total Protein 8.4 g/dL (6.6-8.7) 07/18/21 03:20 Albumin 3.1 g/dL (3.5-5.2) L 07/18/21 03:20 Globulin 5.3 g/dL (1.3-4.6) H 07/18/21 03:20 Procalcitonin 1.33 ng/mL (0-0.5) H 07/18/21 03:20 TSH 1.47 uIU/mL (0.27-4.20) 07/18/21 03:20 Ethyl Alcohol < 10 mg/dL (0-10) 07/17/21 15:42 Hepatitis A IgM Ab Non-reactive (Nonreactive) 07/18/21 03:20 Hep Bs Antigen Non-reactive (Nonreactive) 07/18/21 03:20 Hep Bs Antibody 3.5 (11.5-1000) L 07/18/21 03:20 Hep B Core Total Ab Non-reactive (Nonreactive) 07/18/21 03:20 Hepatitis C Antibody Reactive (Nonreactive) H 07/18/21 03:20 A&P Assessment and plan (1) COVID: Remdisivir 200mg iv x 1 followed by 100mg iv daily dexamethasone 6mg IVP daily duoneb q6h, budesonide q12h empiric CTX Flutter valve/spirometer at bedside trend inflammatory markers including CRP, D dimer CTA negative for PE, gross consolidation Status: Acute (2) Dehydration: related to COVID and GI losses Initially received IVF however now with concern for hypervolemia and resulting hypoxia, hold off on further fluids, lasix 40mg IVP x 1, monitor for response Status: Acute (3) EDGARD (acute kidney injury): Cr 1.4, baseline not known at this time likely related to dehydration check CPK level for rhabdomyolysis Status: Acute (4) Liver cirrhosis: incidentally discovered on CTA chest Elevted T .bili H/o alcohol consumption+ Check alcohol level, hepatitis serology, INR Status: Acute (5) Thrombocytopenia: May be related to acute viral illness vs chronic liver disease no bleeding currently Monitor for now Status: Acute (6) Hypoxia: related to covid 19, possible fluid overload after IVF resuscitation Lasix as above ABG CTA negative for PE, pneumothorax, consolidation Status: Acute (7) Hepatic encephalopathy: Ammonia level at 70 today Currenlty awake, alert but was noted to be disoriented upon arrival Lactulose 10gm po q4h, titrate to 3-4 BM per day Status: Acute (8) Hypotension: Transient hypotension, currently improved, BP 140/76 at time of assessment after albumin administration monitor closely in ICU Status: Acute Attestations Medical Necessity Statement*: >2midnight admission anticipated for above defined care Coding Level of Care Code Acute Circular Sawyer Stone for g Fwd Diagnoses COVID U07.1 Dehydration E86.0 EDGARD (acute kidney injury) N17.9 Liver cirrhosis K74.60 Thrombocytopenia D69.6 Hypoxia R09.02 Hepatic encephalopathy K72.90 Hypotension I95.9
[2021-07-18] MEDS: cefTRIAXone 1,000 MG in sodium chloride 0.9% (plus) 50 ML 100 MG IV (05:44)
[2021-07-18 06:11] LABS: Creatine Phosphokinase 111 U/L (39-308); NT Pro B Type Natriuretic Pept 5225 pg/mL (0-125)
[2021-07-18 06:12] LABS: HIV 1 & 2 Antibody Non-Reactive (Non-Reactiv); HIV 1 & 2 Antigen Non-Reactive (Non-Reactiv)
--- NOTE | 2021-07-18 06:28 | PC.NURSE ---
Pt resting quietly in bed. Speech appropriate. Pt A/O x 4. Lungs diminished throughout. No cough noted at this time.
[2021-07-18 06:39] LABS: ABG PCO2 26.8 mmHg (35-45); ABG PH Result 7.44 (7.35-7.45); Arterial Blood Gas Hematocrit 41.5 % (42-52); Base Excess ABG -4.5 mmol/L (-2.0-2.0); Blood Gas Operator Identificat JB; Blood Gas Sample Site Brachial, right; Blood Gas Sample Type Arterial; HCO3 ABG 18.2 mmol/L (22-26); Oxygen Device NC; PO2 ABG 58.1 mmHg (80.0-100.0)
[2021-07-18] MEDS: FUROsemide 10 mg/mL SDV 2mL 20 MG IVP (08:35)
[2021-07-18] MEDS: multivitamin therapeutic Tablet 1 TAB PO (08:36)
[2021-07-18] MEDS: thiamine 100 mg Tablet PO (08:36)
[2021-07-18] MEDS: pantoprazole DR 40 mg Tablet PO ×2 (08:36→12:04)
[2021-07-18] MEDS: folic acid 1 mg Tablet PO (08:36)
--- NOTE | 2021-07-18 11:47 | USCV_ITS ---
Luis Gutierrez Age: 66 Gender: M : 1955 Exam Date: 07/18/2021 14:46 Ordering Phys: Mauricio Estrada MD Technologist: Dorys Long [place] [facility] [place]: [place]B BP: 91 / HR: 87 Rhythm: Sinus Technical Quality: Adequate MEASUREMENTS (Male / Female) Normal Values 2D ECHO LV Diastolic Diameter PLAX 4.0 cm 4.2 - 5.9 / 3.9 - 5.3 cm LV Systolic Diameter PLAX 2.8 cm LV Chamber Size 2.4 cm IVS Diastolic Thickness 1.7 cm 0.6 - 1.0 / 0.6 - 0.9 cm IVS Systolic Thickness 1.8 cm LVPW Diastolic Thickness 1.3 cm 0.6 - 1.0 / 0.6 - 0.9 cm LVPW Systolic Thickness 1.5 cm RV Chamber Size 3.6 cm LVOT Diameter 2.1 cm LV Ejection Fraction 2D Teich 60.0 % LV Ejection Fraction MOD 2C 24.2 % LV Ejection Fraction 2C AL 22.0 % LA Diameter 4.9 cm LA Width 3.4 cm LA Height 4.7 cm RA Width 4.1 cm RA Height 4.8 cm Aorta at Sinotubular Diameter 3.6 cm M-MODE Aortic Annulus Diameter 3.6 cm MV E Point Septal Separation 0.2 cm DOPPLER AV Peak Velocity 164.0 cm/s LVOT Peak Velocity 100.0 cm/s AV Area Cont Eq vti 3.0 cm squared AV Area Cont Eq pk 2.1 cm squared MV Area PHT 4.6 cm squared Mitral E to A Ratio 1.7 MV E' Velocity 75.5 cm/s Mitral E to MV E' Ratio 17.0 Mitral E to LV E' Lateral Ratio 19.5 Mitral E to LV E' Septal Ratio 15.0 TR Peak Velocity 243.1 cm/s TR Peak Gradient 23.6 mmHg TR Mean Velocity 177.8 cm/s TR Mean Gradient 15.1 mmHg TR Velocity Time Integral 60.5 cm TV Peak E Velocity 64.0 cm/s PV Peak Velocity 74.0 cm/s RV Acceleration Time 0.1 s RV Ejection Time 0.3 s RV AcT/ET 0.5 FINDINGS Left Ventricle Normal left ventricular size. LV systolic function is normal with EF of 55-60%. No regional wall motion abnormalities. Right Ventricle The right ventricle is normal in size and function. Right Atrium The right atrium is normal in size. Left Atrium The left atrium is normal in size. Mitral Valve Mild mitral annular calcification without significant stenosis or prolapse. There is no mitral regurgitation. Aortic Valve Aortic valve is thickened without significant stenosis. There is no aortic regurgitation. Tricuspid Valve Structurally normal tricuspid valve without significant stenosis. Trace Tricuspid regurgitation. Insufficient TR jet to calculate RVSP. Pulmonic Valve Structurally normal pulmonic valve without significant stenosis. There is no pulmonic regurgitation. Pericardium Normal pericardium without effusion. Aorta Aortic root is mildly dilated CONCLUSIONS LV systolic function is normal with EF of 55 to 60%. Mild mitral annular calcification. Trace tricuspid regurgitation. No comparison studies are available Eric Roach MD (Electronically Signed) Final Date: 18 July 2021 15:38 S
--- NOTE | 2021-07-18 11:48 | US_ITS ---
WS: [id number] RIGHT UPPER QUADRANT ULTRASOUND HISTORY: Elevated liver enzymes. COMPARISON: None available. Liver: 20.0 cm in length. Liver is moderately enlarged. There is very coarsened echotexture throughou t the liver with a nodular lobulated surface. No mass identified. Patient was unable to cooperate for this examination. Portal Vein: Unable to obtain accurate flows due to motion and noncooperation. Gallbladder: Normally distended. No stones identified. There is a small amount of sludge present. CBD: 0.4 cm Pancreas: Not visualized. Right kidney: 11.2 cm in length. Normal size and echogenicity. No hydronephrosis or mass. Aorta and IVC: Not visualized. No ascites. US/US liver [id number] IMPRESSION: 1. Technically very limited evaluation of the RIGHT upper quadrant due to lack of cooperation and short of breath. 2. Moderate hepatomegaly with changes of cirrhosis. Unable to evaluate the por reji vein for reversal of flow. 3. Small amount of gallbladder sludge with no stones identified.
[2021-07-18] MEDS: midodrine 5 mg TABLET 10 MG PO ×2 (12:04→19:42)
--- NOTE | 2021-07-18 13:00 | PC.NURSE ---
Pt went into Afib with a rate of 140-160. Dr. walker was called and cradizem was started.
--- NOTE | 2021-07-18 14:05 | PM.PN ---
Subjective Subjective: Patient was seen this morning, nursing staff at bedside, he is alert to person, to place, not to time, he asked me when he can go home, he tells me why does he need oxygen, he tells me that he has a dog at home, and this dog is difficult to manage, and he is the only one that can take care of him, he really wants to go home, his last alcohol drink was about 2 weeks ago, he tells me that he intermittently drinks alcohol, but is fairly vague in terms of how much alcohol he drinks, denies any weakness, no history of bleeding, history of hemoptysis, he tells me that he has not received COVID vaccines Vitals/I&O/Wt Last Vital Signs Temp 96.4 F L 07/18/21 08:30 Pulse 99 07/18/21 14:00 Resp 21 H 07/18/21 14:00 BP 109/82 07/18/21 12:30 Pulse Ox 92 07/18/21 14:00 07/17/21 07/18/21 07/18/21 22:59 06:59 14:59 Intake Total 1700 / 1700 445 / 2145 Output Total 700 / 700 Balance 1700 / 1700 -255 / 1445 Weight last 48 hrs Weight 86.999 kg Weight 86.999 kg Weight 54.431 kg Physical Exam Const: COMMON NORMALS: no acute distress and patient oriented x3 Resp: COMMON NORMALS: normal respiratory effort, No retractions, No use of accessory muscles and clear to auscultation bilaterally AUSCULTATION: clear to auscultation bilaterally Cardio: COMMON NORMALS: regular rate, regular rhythm, S1 normal heart sound present and S2 normal heart sound present RATE: regular rate RHYTHM: regular rhythm HEART SOUNDS: S1 normal heart sound present and S2 normal heart sound present GI: COMMON NORMALS: Soft to palpation INSPECTION: Yes abdominal distension AUSCULTATION: Yes normoactive bowel sounds PALPATION: Yes Soft to palpation, No Tenderness to palpation present (GI), No Guarding due to palpation present (GI), No Rigid due to palpation and Yes Ascites present Extremity: NARRATIVE EXTREMITY EXAM: 1+ pitting edema Neuro: COMMON NORMALS: patient oriented x3 Psych: COMMON NORMALS: mental status grossly normal Urinary Catheter Management: Bartlett: Cath Placed During This Visit: yes Urinary Catheter Date of Insertion: 07/18/21 Urinary Catheter Time of Insertion: 12:24 Data : 07/18/21 03:20 07/18/21 03:20 Micro: Microbiology 07/18/21 12:32 Blood Culture - Preliminary Blood SPECIMEN COLLECTED 07/18/21 12:27 Blood Culture - Preliminary Blood SPECIMEN COLLECTED A&P Assessment and plan (1) Atrial fibrillation with RVR: -Start on Cardizem drip -Maintain magnesium greater than 2, potassium greater than 4 -Anticoagulation relatively contraindicated given history of thrombocytopenia, alcoholism, risk of bleeding -Cardiac echocardiogram Status: Acute (2) COVID: Remdisivir 200mg iv x 1 followed by 100mg iv daily dexamethasone 6mg IVP daily duoneb q6h, budesonide q12h Continue Rocephin Flutter valve/spirometer at bedside trend inflammatory markers including CRP, D dimer CTA negative for PE, gross consolidation Status: Acute (3) Dehydration: related to COVID and GI losses Initially received IVF however now with concern for hypervolemia and resulting hypoxia, hold off on further fluids, lasix 40mg IVP x 1 Status: Acute (4) EDGARD (acute kidney injury): Cr 1.1, baseline not known at this time likely related to dehydration Continue to monitor Status: Acute (5) Liver cirrhosis: incidentally discovered on CTA chest Elevted T .bili, elevated INR, thrombocytopenia H/o alcohol consumption+, hepatitis C positive Viral load ordered, HIV ordered Status: Acute (6) Thrombocytopenia: May be related to acute viral illness vs chronic liver disease no bleeding currently Monitor for now Status: Acute (7) Hypoxia: related to covid 19, possible fluid overload after IVF resuscitation Lasix as above CTA negative for PE, pneumothorax, consolidation Status: Acute (8) Hepatic encephalopathy: Ammonia level at 70 today Currenlty awake, alert but was noted to be disoriented upon arrival Lactulose 10gm po q4h, titrate to 3-4 BM per day Status: Acute (9) Hypotension: Transient hypotension, currently improved, BP 140/76 at time of assessment after albumin administration monitor closely in ICU Continue midodrine Status: Acute (10) Acute hepatitis C: Status: Acute Plan Possible alcohol withdrawal, CIWA Attestations Medical Necessity Statement*: Patient requires hospitalization for acute liver failure, COVID-19 pneumonia, A. fib Coding Level of Care Code Acute Alumni Relations Officer for Chg Fwd Diagnoses Atrial fibrillation with RVR I48.91 COVID U07.1 Dehydration E86.0 EDGARD (acute kidney injury) N17.9 Liver cirrhosis K74.60 Thrombocytopenia D69.6 Hypoxia R09.02 Hepatic encephalopathy K72.90 Hypotension I95.9 Acute hepatitis C B17.10
--- NOTE | 2021-07-18 14:11 | USCV_ITS ---
Luis Gutierrez Age: 66 Gender: M : 1955 Exam Date: 07/18/2021 14:20 Ordering Phys: Mauricio Estrada MD Technologist: Dorys Long [place]am Location: [facility] [place]: SOB WITH COVID HISTORY: Very SOB PROCEDURES: The venous duplex Doppler examination of both lower extremities was performed in the standard fashion. The following venous structures were evaluated: common femoral vein, profunda vein, proximal portion of the greater saphenous vein, superficial femoral vein, and the popliteal vein. In addition, the posterior tibial and peroneal trunk were evaluated. Serial compression, augmentation maneuvers, and spectral Doppler flow evaluation were performed. FINDINGS: Normal 2-D Doppler and augmentation and compressibility throughout the lower extremity venous structures. Additional imaging through the proximal calf veins also reveals no thrombus. Limited evaluation of the greater saphenous vein is patent with no thrombus.. CONCLUSIONS No evidence of right lower extremity DVT. No evidence of left lower extremity DVT. Yuri Harrison MD (Electronically Signed) Final Date: 18 July 2021 15:41 S
[2021-07-18] MEDS: piperacillin-tazobactam 3.375 GM in sodium chloride 0.9% (plus) 50 ML IV ×2 (14:55→22:32)
[2021-07-18 16:36] LABS: Add Urine Microscopic? YES; Bilirubin Urine Neg (Negative); Blood Urine 3+ (Negative); Glucose Urine UA Norm (Normal); Ketones Urine Negative (Negative); Leukocyte Esterase Urine Negative (Negative); Nitrate Urine Negative (Negative); Protein Urine Trace (Negative); Urine Appearance Clear (CLEAR); Urine Color Yellow (Yellow); Urobilinogen Urine Neg (Negative); pH Urine 5 (5-7)
[2021-07-18 16:37] LABS: Add Urine Culture? Yes; Bacteria Urine TRACE /hpf; Squamous Epithelial Cell Urine 0-4 /hpf (0-5)
[2021-07-18] MEDS: remdesivir 100 MG in sodium chloride 0.9% (100 ml) 100 ML IV (17:23)
[2021-07-18] MEDS: albumin 37.5 GM/150 ML VIAL IV (17:24)
[2021-07-18] MEDS: dexamethasone 4 mg/mL INJ 6 MG IVP (19:42)
[2021-07-18] MEDS: LORazepam 2 mg/mL INJ 1 mL IVP (19:45)
[2021-07-19] VITALS (73 sets, daily range): BP systolic 79–134; BP diastolic 49–85; PULSE 66–96; RESP 18–38; TEMP 35.7–36.9; O2SAT 82–97
[2021-07-19] MEDS: pantoprazole DR 40 mg Tablet PO (00:17)
[2021-07-19] MEDS: ipratropium-albuterol 3 mL Neb INHALATION ×4 (03:28→20:10)
[2021-07-19] MEDS: midodrine 5 mg TABLET 10 MG PO ×2 (03:29→21:45)
--- NOTE | 2021-07-19 04:44 | PC.NURSE ---
O2 sats decreased to 84% on 15L high flow O2. Pulled patient up in bed and encouraged coughing, O2 sats did not increase. Notified Dr. Berkowitz per RT. Placed on Heated high flow 45L and 75%.
--- NOTE | 2021-07-19 05:15 | XRR_ITS ---
PROCEDURE INFORMATION: Exam: XR Chest Exam date and time: 07/19/2021 5:15 AM Age: 66 years old Clinical indication: Shortness of breath; Patient HX: Worsening SOB and hypoxia. Covid +. ; Additional info: Increased need for o2 TECHNIQUE: Imaging protocol: XR of the chest. Views: 1 view. COMPARISON: CR XR chest 1V portable [id number] 07/17/2021 3:21 PM FINDINGS: Lungs: Interval worsening of bilateral pulmonary opacities. Pleural spaces: Unremarkable. No pleural effusion. No pneumothorax. Heart/Mediastinum: Unremarkable. No cardiomegaly. Bones/joints: Unremarkable. XR/XR chest 1V portable [id number] IMPRESSION: Interval worsening of bilateral pulmonary opacities.
[2021-07-19 05:18] LABS: ABG PCO2 32.6 mmHg (35-45); Arterial Blood Gas Hematocrit 44.7 % (42-52); Base Excess ABG -3.5 mmol/L (-2.0-2.0); Blood Gas Sample Site Brachial, right; Blood Gas Sample Type Arterial; HCO3 ABG 20.3 mmol/L (22-26); PO2 ABG 90.5 mmHg (80.0-100.0)
[2021-07-19 05:31] LABS: Basophils # 0.1 10^3/uL (0.0-0.1); Basophils % 0.5 %; Eosinophils % 0.1 %; Hematocrit 44.1 % (42.0-52.0); Hemoglobin 14.4 g/dL (11.7-16.6); Lymphocytes # 0.7 10^3/uL (0.8-4.8); Lymphocytes % 5.9 %; Mean Corpuscular HGB Conc 32.7 g/dL (30.0-36.0); Mean Corpuscular Hemoglobin 32.4 pg (28.0-34.0); Mean Corpuscular Volume 99.3 fl (80-94); Mean Platelet Volume 12.4 fL (7.4-10.4); Monocytes # 0.7 10^3/uL (0.2-0.9); Monocytes % 5.9 %; Neutrophils # 10.19 10^3/uL (1.8-7.7); Neutrophils % 86.8 %; Nucleated Red Blood Cells % 0 %; Platelet Count 100 10^3/cmm (130-400); Red Blood Count 4.44 10^6/uL (4.1-5.3); Red Cell Distribution Width 17.6 % (12.1-15.1); White Blood Count 11.7 10^3/uL (4.0-10.0)
[2021-07-19 05:36] LABS: Oxygen Device HHFNC
[2021-07-19 05:47] LABS: Lactate (Lactic Acid level) 2.5 mmol/L (0.5-2.2)
[2021-07-19 05:48] LABS: Ammonia 30 umol/L (16-60); Slide Review Slide Review Perform
[2021-07-19 05:50] LABS: INR 1.69 (0.8-1.2)
[2021-07-19 06:01] LABS: NT Pro B Type Natriuretic Pept 4421 pg/mL (0-125); Procalcitonin 0.91 ng/mL (0-0.5)
[2021-07-19] MEDS: piperacillin-tazobactam 3.375 GM in sodium chloride 0.9% (plus) 50 ML IV ×3 (06:06→21:45)
[2021-07-19 06:14] LABS: Alanine Aminotransferase 29 U/L (0-41); Albumin Level 3.1 g/dL (3.5-5.2); Alkaline Phosphatase 60 IU/L (40-130); Aspartate Amino Transferase 50 U/L (0-40); Blood Urea Nitrogen 45 mg/dL (8-23); C Reactive Protein 31.9 mg/L (0.0-4.9); Calcium 8.8 mg/dL (8.5-10.5); Carbon Dioxide 19 mmol/L (22-29); Chloride 102 mmol/L (98-107); Creatine Phosphokinase 90 U/L (39-308); Globulin 5.3 g/dL (1.3-4.6); Glomerular Filtration Rate 75.2 mL/min (90-130); Glucose 145 mg/dL (65-115); Magnesium 2.4 mg/dL (1.7-2.3); Osmolality Calculated 296 mOsm/kg (285-295); Phosphorus 4.9 mg/dL (2.5-4.5); Sodium 136 mmol/L (136-145); Total Bilirubin 3.5 mg/dL (0.15-1.2); Total Protein 8.4 g/dL (6.6-8.7)
[2021-07-19 06:15] LABS: Anion Gap 18.8 (5-19); Potassium 3.8 mmol/L (3.5-5.1)
--- NOTE | 2021-07-19 07:29 | PC.NURSE ---
Upon morning assesment, patient was alert to self only. When asked where he is, he said he was in the thermostat. SHortly after, nurse heard patient yelling and saw he was pulling at his abel catheter. Nurse redireted patient, and hid abel line.
[2021-07-19] MEDS: LORazepam 2 mg/mL INJ 1 mL IVP ×2 (07:56→11:47)
[2021-07-19] MEDS: FUROsemide 10 mg/mL SDV 4mL 40 MG IVP (08:19)
--- NOTE | 2021-07-19 09:58 | PC.NURSE ---
Patient became hypotensive. 70's systolic with a Map of 56. Nus alerted Dr walker and received an order for levophed. Nurse started an 18 gauge peripheral IV. Flushes and draws well. Dr walker plans to start a central line if levophed continues to be required.
--- NOTE | 2021-07-19 10:35 | XRR_ITS ---
PROCEDURE INFORMATION: Exam: XR Chest Exam date and time: 07/19/2021 10:35 AM Age: 66 years old Clinical indication: Other vascular access device placement or adjustment; Central line, tunnelled TECHNIQUE: Imaging protocol: XR of the chest. Views: 1 view. Total images: 2 COMPARISON: CR (CHEST, ) 07/19/2021 5:17 AM FINDINGS: Tubes, catheters and devices: A right internal jugular central venous catheter is present, with its tip overlying the region of the superior vena cava. Lungs: Bilateral pulmonary opacities are again noted and appear unchanged. Pleural spaces: Unremarkable. No pleural effusion. No pneumothorax. Heart/Mediastinum: Heart size is stable when compared to the prior exam. Bones/joints: Osseous structures are unchanged from the prior exam. Other findings: X-ray is slightly rotated. XR/XR chest 1V portable [id number] IMPRESSION: 1. A right internal jugular central venous catheter is present, with its tip overlying the region of the superior vena cava. 2. Bilateral pulmonary opacities are again noted and appear unchanged.
--- NOTE | 2021-07-19 11:06 | PC.NURSE ---
Nurse attempted to get consent from patient's for the central line. Unable to reach . Phone number in the chart is [phone] is not a valid number. Nurse also tried [phone] thinking the area code was wrong, but this was also an invalid number. Nurse found another number in the chart, , but it was not good either. Unable to reach family. Patient is becoming increasingly agitated and continues to be hypotensive requiring levophed. Emergency consent per Dr walker. Nurse asisted with centrla line placement to right IJ. Procedure was uneventful. Pending Xray for verification.
[2021-07-19] MEDS: dexmedeTOMIDine 0.9 % NaCL 400 MCG/100 ML PREMIX IV ×2 (11:17→23:04)
[2021-07-19] MEDS: lanolin oint 7 gm 1 APPLIC TOPICAL (14:38)
--- NOTE | 2021-07-19 14:52 | P.ANES_ITS ---
Anesthesia Procedures Procedure/Date: 07/19/[address], right IJ Patient's blood pressures were in the 70s over 50s, MAP less than 65, hypotensive, altered mental status -Family was not able to to be reached -Due to altered mental status, unable to get consent -Due to patient's's shock, septic shock, emergency right central line was placed Central Venous Insert: Central Venous Line: Right IJ Time Out Performed: Yes Consent: emergency procedure Central Line: New Anesthesia monitors: pulse oximetry, BP cuff and oxygen Vein cannulated: right internal jugular Ultrasound used: to identify patency to vessel and to visualize needle entry to vein Post procedure: Obtain Chest X- Ray Additional Comments: Right central line placement, using sterile technique -Right internal jugular was identified using ultrasound -Once the needle was inserted, flash of dark red blood, nonpulsatile -Needle thread was placed over needle, ultrasound confirmed placement into right internal jugular -Tolerated procedure well, minimal bleeding
--- NOTE | 2021-07-19 14:55 | PM.PN ---
Subjective Subjective: Patient was seen this morning, alert to person, not to place, not to time, becomes quite encephalopathic, pulling at his lines, does not follow commands, hypotensive, slightly hypothermic this morning, placed on heated high flow 75 L 40%, Vitals/I&O/Wt Last Vital Signs Temp 97.3 F L 07/19/21 13:30 Pulse 73 07/19/21 14:16 Resp 22 H 07/19/21 14:16 BP 98/66 07/19/21 13:45 Pulse Ox 94 07/19/21 14:16 07/18/21 07/19/21 07/19/21 22:59 06:59 14:59 Intake Total 750.975 / 756.642 50 / 806.642 90.347 / 90.347 Output Total 875 / 875 700 / 700 Balance 750.975 / 756.642 -825 / -68.358 -609.653 / -609.653 Weight last 48 hrs Weight 88.496 kg Weight 86.999 kg Weight 86.999 kg Weight 54.431 kg Physical Exam Const: COMMON NORMALS: no acute distress EXAM LIMITATIONS: altered mental status GENERAL APPEARANCE: ill appearing NUTRITIONAL APPEARANCE: thin ORIENTATION/CONSCIOUSNESS: Yes awake, Yes oriented to person and Yes confused; not oriented to place and not oriented to time HENMT: COMMON NORMALS: normocephalic HEAD & SCALP: normocephalic Resp: COMMON NORMALS: normal respiratory effort EFFORT & INSPECTION: Yes symmetric chest movement and Yes tachypneic AUSCULTATION: crackles and diminished lung sounds diffuse Cardio: COMMON NORMALS: regular rate, regular rhythm, S1 normal heart sound present and S2 normal heart sound present RATE: regular rate RHYTHM: regular rhythm HEART SOUNDS: S1 normal heart sound present and S2 normal heart sound present GI: COMMON NORMALS: Normal to inspection, nondistended, normoactive bowel sounds present, Soft to palpation, non-tender and No hepatosplenomegaly present PALPATION: Yes Soft to palpation and Yes No hepatosplenomegaly present Extremity: COMMON NORMALS: no pedal edema Neuro: SENSORIUM/ORIENTATION: Yes oriented to person, No oriented to place and No oriented to time Psych: COMMON NORMALS: mental status grossly normal Urinary Catheter Management: Bartlett: Cath Placed During This Visit: yes Reason for Continuing Indwelling Catheter: Accurate Measurement of Urinary Output in Critically Ill Patients Urinary Catheter Date of Insertion: 07/18/21 Urinary Catheter Time of Insertion: 12:24 Data : 07/19/21 04:57 07/19/21 04:57 Micro: Microbiology 07/18/21 12:32 Blood Culture - Preliminary Blood NEGATIVE TO DATE 07/18/21 12:27 Blood Culture - Preliminary Blood NEGATIVE TO DATE 07/18/21 15:11 Legionella Urinary Antigen - Final Urine Catheterized 07/18/21 15:11 Bacterial Antigens - Final Urine,Clean Catch A&P Assessment and plan (1) Sepsis: -Secondary to pneumonia, COVID-19 pneumonia, acute respiratory failure chest x-ray showing right upper lobe infiltrate, possible aspiration event -Continue Zosyn -Right IJ in place -Continue Levophed -Avoid fluids due to concerns of fluid overload -High risk of intubation the next 24 hours -Keep negative fluid status -Monitor respiratory status closely Status: Acute (2) Shock: -Sepsis secondary to pneumonia, COVID-19 pneumonia -As above Status: Acute (3) Acute encephalopathy: -Secondary to pneumonia, right upper lobe, COVID-19 pneumonia Status: Acute (4) Acute and chronic respiratory failure with hypoxia: -Secondary to right upper lobe pneumonia, COVID-19 pneumonia -Currently on heated high flow at 75%, 45 L -Monitor respiratory status closely -Diuresis due to concerns for fluid overload -Zosyn for antibiotic coverage -Remdesivir -Decadron -Precedex for agitation Status: Acute (5) Alcohol withdrawal: -CIWA score Status: Acute (6) Atrial fibrillation with RVR: -Start on Cardizem drip -Maintain magnesium greater than 2, potassium greater than 4 -Anticoagulation relatively contraindicated given history of thrombocytopenia, alcoholism, risk of bleeding -Cardiac echocardiogram Status: Acute (7) Acute hepatitis C: Status: Acute (8) COVID: Remdisivir 200mg iv x 1 followed by 100mg iv daily dexamethasone 6mg IVP daily duoneb q6h, budesonide q12h Continue Zosyn Flutter valve/spirometer at bedside trend inflammatory markers including CRP, D dimer CTA negative for PE, gross consolidation Status: Acute (9) Dehydration: related to COVID and GI losses Initially received IVF however now with concern for hypervolemia and resulting hypoxia, hold off on further fluids, lasix 40mg IVP x 1 Status: Acute (10) EDGARD (acute kidney injury): Cr 1.1, baseline not known at this time likely related to dehydration Continue to monitor Status: Acute (11) Liver cirrhosis: incidentally discovered on CTA chest Elevted T .bili, elevated INR, thrombocytopenia H/o alcohol consumption+, hepatitis C positive Viral load ordered, HIV ordered Status: Acute (12) Thrombocytopenia: May be related to acute viral illness vs chronic liver disease no bleeding currently Monitor for now Status: Acute (13) Hypoxia: related to covid 19, possible fluid overload after IVF resuscitation Lasix as above CTA negative for PE, pneumothorax, consolidation Status: Acute (14) Hepatic encephalopathy: Ammonia level at 70 today Currenlty awake, increasingly confused, start rifaximin Lactulose 10gm po q4h, titrate to 3-4 BM per day Status: Acute (15) Hypotension: Transient hypotension, currently improved, BP 140/76 at time of assessment after albumin administration monitor closely in ICU Continue midodrine Status: Acute Plan Possible alcohol withdrawal, CIWA Attestations Medical Necessity Statement*: Patient requires hospitalization for alcohol withdrawal, acute encephalopathy, COVID-19 pneumonia, acute acute hypoxic respiratory failure, EDGARD, liver cirrhosis, thrombocytopenia, sepsis, shock Critical Care Time: 55 minutes Coding Level of Care Code Acute Investigations Consultant for g Fwd Diagnoses Sepsis A41.9 Shock R57.9 Acute encephalopathy G93.40 Acute and chronic respiratory failure with hypoxia J96.21 Alcohol withdrawal F10.239 Atrial fibrillation with RVR I48.91 Acute hepatitis C B17.10 COVID U07.1 Dehydration E86.0 EDGARD (acute kidney injury) N17.9 Liver cirrhosis K74.60 Thrombocytopenia D69.6 Hypoxia R09.02 Hepatic encephalopathy K72.90 Hypotension I95.9
--- NOTE | 2021-07-19 15:14 | P.CONIM_ITS ---
Providers/Reason For Consult Consulting Physician/Specialty*: Demario Arnett MD/ Pulmonary Critical Care Reason for Consult*: Acute hypoxic respiratory failure in pt with COVID 19 pneumonia and Alcohol withdrawal syndrome Requesting Physician: Mauricio Estrada MD Attending Physician: Mauricio Estrada MD History of Present Illness History of Present Illness Luis Gutierrez is a 66 year old male without known PMH presented to the ED on 07/18/21 with 5 days old diagnosis of Covid.? His symptoms have included generalized fatigue malaise cough and minimal expectoration, some shortness of breath and poor p.o. intake, nausea and diarrhea.? He was noted to be dehydrated upon ER arrival and received 1.5 L of IV fluids.? Following fluid administration reportedly patient had a new oxygen requirement of 2 L/min.? CTA of the chest was negative for PE or gross consolidation, however incidental note was made of liver cirrhosis and portal hypertension.? Transiently patient's blood pressure dropped to 80/40 and in view of hypotension, new O2 requirement patient was admitted for close monitoring to the ICU.? Reportedly patient was also slightly confused upon first arrival, mentation improved with fluids.? Ammonia level has returned at 70. h/o daily alcohol intake+ Gradually patient FiO2 requirements increased and today on day 2 admission patient appeared more confused. Currently is requiring 45 L 70% on HFNC and was trying to get out of bed. He received Ativan 2 mg and calmed down but his blood pressure dropped, central line was placed and patient was started on Levophed 8 mics. Pulmonary critical care consult requested for altered mental status and acute hypoxic respiratory failure due to COVID-19 pneumonia. Patient seen at bedside sleeping after receiving his Ativan 2 mg Hemodynamically stable with normal heart rate and requiring Levophed 8 mics On high flow nasal cannula 45 L 70% saturating 97% Other labs and imaging reviewed Review of Systems General: Reports: ROS unobtainable due to medical condition and ROS unobtainable due to mental status Medications/Allergies Home Medications Medication Instructions Recorded Confirmed Last Taken Type acetaminophen 500 mg tablet 500 mg PO Q6H PRN 5 Days #20 tab 07/17/21 Unknown Rx calcium carbonate 1,000 1 tab PO TID PRN 7 Days #21 tab 07/17/21 Unknown Rx mg-simethicone 60 mg chewable tablet (Maalox Advanced) famotidine 20 mg tablet (Pepcid) 20 mg PO BID PRN 10 Days #20 tab 07/17/21 Unknown Rx ondansetron HCl 4 mg tablet 4 mg PO TID PRN 4 Days #12 tab 07/17/21 Unknown Rx (Zofran) Allergies Allergy/AdvReac Type Severity Reaction Status Date / Time No Known Allergies Allergy Verified 07/12/21 10:19 Current Medications Generic Name Dose Route Start Last Admin Trade Name Freq PRN Reason Stop Dose Admin Acetaminophen 650 mg 07/17/21 22:43 07/18/21 00:43 Acetaminophen 325 Mg Tablet PO 650 mg Q6H PRN Administration Mild/Mod Pain Or Temp >/= 101 Albuterol/Ipratropium 3 ml 07/18/21 03:00 07/19/21 14:14 Ipratropium-Albuterol 3 Ml Neb INHALATION 3 ml Q6H.RESPIRATORY BRIONNA Administration Benzonatate 100 mg 07/17/21 22:43 07/18/21 08:36 Benzonatate 100 Mg Capsule PO 100 mg TID PRN Administration COUGH Dexamethasone 6 mg 07/18/21 20:00 07/18/21 19:42 Dexamethasone 4 Mg/Ml Inj IVP 6 mg Q24H BRIONNA Administration Folic Acid 1 mg 07/18/21 09:00 07/19/21 08:06 Folic Acid 1 Mg Tablet PO Not Given DAILY BRIONNA Guaifenesin 400 mg 07/18/21 01:45 07/18/21 01:56 Guaifenesin 100 Mg/5 Ml Udc 10 Ml PO 400 mg Q4H PRN Administration COUGH Remdesivir 100 mg/ Sodium 100 mls @ 100 mls/hr 07/18/21 18:00 07/18/21 18:23 Chloride IV 07/22/21 18:59 Infused Q24H BRIONNA Infusion Diltiazem HCl 125 mg/ Sodium 125 mls @ 0 mls/hr 07/18/21 12:00 07/18/21 21:30 Chloride IV 0 mg/hr .Q0M BRIONNA 0 mls/hr Titration Protocol Per Protocol Piperacillin Sod/Tazobactam 50 mls @ 12.5 mls/hr 07/18/21 14:30 07/19/21 14:38 Sod 3.375 gm/ Sodium Chloride IV 12.5 mls/hr Q8H BRIONNA Administration Protocol Norepinephrine Bitartrate 4 mg 254 mls @ 0 mls/hr 07/19/21 09:15 07/19/21 13:58 / Dextrose IV 4 mcg/min .Q0M BRIONNA 15.24 mls/hr Titration Protocol Per Protocol dexmedeTOMIDine 0.9 % NaCL 400 mcg in 100 mls @ 0 mls/hr 07/19/21 11:15 07/19/21 13:58 Precedex IV 0.2 mcg/kg/hr .Q0M BRIONNA 4.43 mls/hr Titration Protocol Per Protocol Lactulose 10 gm 07/17/21 23:00 07/19/21 11:22 Lactulose Oral Liq 20 Gm/30 Ml Udc PO Not Given Q6H BRIONNA Protocol Lanolin 1 applic 07/19/21 14:02 07/19/21 14:38 Lanolin Oint 7 Gm TOPICAL 1 appful PRN PRN Administration DRYNESS Lorazepam 2 mg 07/18/21 05:35 07/19/21 11:47 Lorazepam 2 Mg/Ml Inj 1 Ml IVP 2 mg PRN PRN Administration WITHDRAWAL Protocol Midodrine 10 mg 07/19/21 09:30 07/19/21 14:31 Midodrine 5 Mg Tablet PO Not Given Q6H BRIONNA Multivitamins Therapeutic 1 tab 07/18/21 09:00 07/19/21 08:06 Multivitamin Therapeutic Tablet PO Not Given DAILY BRIONNA Pantoprazole Sodium 40 mg 07/18/21 12:00 07/19/21 12:[address] 40 Mg Tablet PO Not Given Q12H BRIONNA PFSH Acute PFSH: Medical History COVID Social History Smoking and tobacco status: current every day smoker Alcohol intake: never Substance/Drug Use: never Vitals/I&O/Wt Last Vital Signs Temp 97.3 F L 07/19/21 13:30 Pulse 73 07/19/21 14:16 Resp 22 H 07/19/21 14:16 BP 98/66 07/19/21 13:45 Pulse Ox 94 07/19/21 14:16 07/19/21 07/19/21 07/19/21 06:59 14:59 22:59 Intake Total 50 / 806.642 90.347 / 90.347 Output Total 875 / 875 700 / 700 Balance -825 / -68.358 -609.653 / -609.653 Weight last 48 hrs Weight 195 lb 1.6 oz Weight 191 lb 12.8 oz Weight 191 lb 12.8 oz Physical Exam Narrative: PHYSICAL EXAM: General: lying in bed, sedated HEENT:NCAT, PERRLA, EOMI Neck: Supple Lungs: Increased coarse sounds bilaterally Heart: s1/s2, RRR Abd: soft, NT, ND, BS + Normoactive Extremities: No edema OPTIMIZATION MANAGER: sedated and limited OPTIMIZATION MANAGER exam possible. SKIN: no rash LDA: # CVC: Right IJ 07/19/2021 Urinary Catheter Management: Bartlett: Cath Placed During This Visit: yes Reason for Continuing Indwelling Catheter: Accurate Measurement of Urinary Output in Critically Ill Patients Urinary Catheter Date of Insertion: 07/18/21 Urinary Catheter Time of Insertion: 12:24 Data : 07/19/21 04:57 07/19/21 04:57 Other Labs: Radiology Impressions Chest CTA 07/17/21 18:35 IMPRESSION: 1. No evidence for pulmonary embolus. Evaluation of the smaller arteries is limited by significant breathing motion artifact. 2. No acute pulmonary finding. 3. Liver cirrhosis with portal venous hypertension. 4. Splenomegaly. Liver Ultrasound 07/18/21 11:48 IMPRESSION: 1. Technically very limited evaluation of the RIGHT upper quadrant due to lack of cooperation and short of breath. 2. Moderate hepatomegaly with changes of cirrhosis. Unable to evaluate the portal vein for reversal of flow. 3. Small amount of gallbladder sludge with no stones identified. Chest X-Ray 07/19/21 10:35 IMPRESSION: 1. A right internal jugular central venous catheter is present, with its tip overlying the region of the superior vena cava. 2. Bilateral pulmonary opacities are again noted and appear unchanged. Laboratory Results WBC 11.7 10^3/uL (4.0-10.0) H 07/19/21 04:57 RBC 4.44 10^6/uL (4.1-5.3) 07/19/21 04:57 Hgb 14.4 g/dL (11.7-16.6) 07/19/21 04:57 Hct 44.1 % (42.0-52.0) 07/19/21 04:57 MCV 99.3 fl (80-94) H 07/19/21 04:57 MCH 32.4 pg (28.0-34.0) 07/19/21 04:57 MCHC 32.7 g/dL (30.0-36.0) 07/19/21 04:57 RDW 17.6 % (12.1-15.1) H 07/19/21 04:57 Plt Count 100 10^3/cmm (130-400) L 07/19/21 04:57 MPV 12.4 fL (7.4-10.4) H 07/19/21 04:57 Neut % (Auto) 86.8 % 07/19/21 04:57 Lymph % (Auto) 5.9 % 07/19/21 04:57 [place] % (Auto) 5.9 % 07/19/21 04:57 Eos % (Auto) 0.1 % 07/19/21 04:57 Baso % (Auto) 0.5 % 07/19/21 04:57 Neut # (Auto) 10.19 10^3/uL (1.8-7.7) H 07/19/21 04:57 Lymph # (Auto) 0.7 10^3/uL (0.8-4.8) L 07/19/21 04:57 [place] # (Auto) 0.7 10^3/uL (0.2-0.9) 07/19/21 04:57 Eos # (Auto) 0.0 10^3/uL (0.0-0.8) 07/19/21 04:57 Baso # (Auto) 0.1 10^3/uL (0.0-0.1) 07/19/21 04:57 Nucleated RBC % (auto) 0 % 07/19/21 04:57 Nucleated RBCs # 0.0 /100WBC 07/19/21 04:57 PT 20.30 SECONDS (12.1-14.9) H 07/19/21 04:57 INR 1.69 (0.8-1.2) H 07/19/21 04:57 D-Dimer 18.67 ug/mIFEU (0-0.59) H 07/18/21 03:20 Specimen Type Arterial 07/19/21 05:15 Sample Site Brachial, right 07/19/21 05:15 ABG pH 7.40 (7.35-7.45) 07/19/21 05:15 ABG pCO2 32.6 mmHg (35-45) L 07/19/21 05:15 ABG pO2 90.5 mmHg (80.0-100.0) 07/19/21 05:15 ABG HCO3 20.3 mmol/L (22-26) L 07/19/21 05:15 ABG Base Excess -3.5 mmol/L (-2.0-2.0) L 07/19/21 05:15 Deejay Test N/a 07/19/21 05:15 Hematocrit 44.7 % (42-52) 07/19/21 05:15 O2 Delivery Device Hhfnc 07/19/21 05:15 O2 Liters/Min 45.0 % 07/19/21 05:15 FiO2 75.0 % 07/19/21 05:15 [employer] ID Hinja 07/19/21 05:15 Sodium 136 mmol/L (136-145) 07/19/21 04:57 Potassium 3.8 mmol/L (3.5-5.1) 07/19/21 04:57 Chloride 102 mmol/L (98-107) 07/19/21 04:57 Carbon Dioxide 19 mmol/L (22-29) L 07/19/21 04:57 Anion Gap 18.8 (5-19) 07/19/21 04:57 BUN 45 mg/dL (8-23) H 07/19/21 04:57 Creatinine 1.0 mg/dL (0.7-1.2) 07/19/21 04:57 GFR Calculation 75.2 mL/min (90-130) L 07/19/21 04:57 Glucose 145 mg/dL (65-115) H 07/19/21 04:57 Calculated Osmolality 296 mOsm/kg (285-295) H 07/19/21 04:57 Lactate 2.5 mmol/L (0.5-2.2) H 07/19/21 04:57 Calcium 8.8 mg/dL (8.5-10.5) 07/19/21 04:57 Phosphorus 4.9 mg/dL (2.5-4.5) H 07/19/21 04:57 Magnesium 2.4 mg/dL (1.7-2.3) H 07/19/21 04:57 Total Bilirubin 3.5 mg/dL (0.15-1.2) H 07/19/21 04:57 AST 50 U/L (0-40) H 07/19/21 04:57 ALT 29 U/L (0-41) 07/19/21 04:57 Alkaline Phosphatase 60 IU/L (40-130) 07/19/21 04:57 Ammonia 30 umol/L (16-60) 07/19/21 04:57 Creatine Kinase 90 U/L (39-308) 07/19/21 04:57 C-Reactive Protein 31.9 mg/L (0.0-4.9) H 07/19/21 04:57 NT-Pro-B Natriuret Pep 4421 pg/mL (0-125) H 07/19/21 04:57 Total Protein 8.4 g/dL (6.6-8.7) 07/19/21 04:57 Albumin 3.1 g/dL (3.5-5.2) L 07/19/21 04:57 Globulin 5.3 g/dL (1.3-4.6) H 07/19/21 04:57 Procalcitonin 0.91 ng/mL (0-0.5) H 07/19/21 04:57 TSH 1.47 uIU/mL (0.27-4.20) 07/18/21 03:20 Urine Color Yellow (Yellow) 07/18/21 15:11 Urine Appearance Clear (CLEAR) 07/18/21 15:11 Urine pH 5 (5-7) 07/18/21 15:11 Ur Specific [place] 1.010 (1.005-1.030) 07/18/21 15:11 Urine Protein Trace (Negative) 07/18/21 15:11 Urine Glucose (UA) Norm (Normal) 07/18/21 15:11 Urine Ketones Negative (Negative) 07/18/21 15:11 Urine Blood 3+ (Negative) H 07/18/21 15:11 Urine Nitrate Negative (Negative) 07/18/21 15:11 Urine Bilirubin Neg (Negative) 07/18/21 15:11 Urine Urobilinogen Neg mg/dL (Negative) 07/18/21 15:11 Ur Leukocyte Esterase Negative (Negative) 07/18/21 15:11 Urine RBC 10-15 /hpf (0-2) H 07/18/21 15:11 Urine WBC 10-15 /hpf (0-5) H 07/18/21 15:11 Ur Squamous Epith Cells 0-4 /hpf (0-5) H 07/18/21 15:11 Amorphous Sediment Not Reportable 07/18/21 15:11 Urine Bacteria Trace /hpf (NONE) 07/18/21 15:11 Ethyl Alcohol < 10 mg/dL (0-10) 07/17/21 15:42 Hepatitis A IgM Ab Non-reactive (Nonreactive) 07/18/21 03:20 Hep Bs Antigen Non-reactive (Nonreactive) 07/18/21 03:20 Hep Bs Antibody 3.5 (11.5-1000) L 07/18/21 03:20 Hep B Core Total Ab Non-reactive (Nonreactive) 07/18/21 03:20 Hepatitis C Antibody Reactive (Nonreactive) H 07/18/21 03:20 HIV 1&2 Ab & HIV 1 Ag Non-reactive (Non-Reactiv) 07/18/21 03:20 HIV 1&2 Antibody Non-reactive (Non-Reactiv) 07/18/21 03:20 Micro: Microbiology 07/18/21 12:32 Blood Culture - Preliminary Blood NEGATIVE TO DATE 07/18/21 12:27 Blood Culture - Preliminary Blood NEGATIVE TO DATE 07/18/21 15:11 Legionella Urinary Antigen - Final Urine Catheterized 07/18/21 15:11 Bacterial Antigens - Final Urine,Clean Catch A&P Assessment and plan (1) Acute and chronic respiratory failure with hypoxia: Status: Acute (2) Alcohol withdrawal: Status: Acute (3) Acute encephalopathy: Status: Acute (4) Shock: Status: Acute (5) Acute hepatitis C: Status: Acute (6) Hepatic encephalopathy: Status: Acute (7) Thrombocytopenia: Status: Acute (8) Liver cirrhosis: Status: Acute (9) COVID: Status: Acute Plan #Altered mental status-hepatic encephalopathy in pt with alcoholic cirrhosis and h/o alcoholism and hepatitis C - likely in delirium tremens/?? Covid vasculitis - today morning received ativan 2mg during my exam and he was seen sleeping ; vitals stable - admission ammonia 70 - on lactulose - target 2-3 soft bm/day; today ammonia 30 - Rifaximin 550 mg PO BID - On CIKS protocol - Ativan prn ; recommend to give 1 mg q 4hr - monitor electrolytes K, mg and supplement accordingly -MVT/FA/Thiamine - Obtain CT head to rule out any anatomic causes # Acute hypoxic respiratory failure - covid 19 and possible aspiration - CT 07/18/21: no evidence of PE; Emphysematous changes - Today chest x ray - worsening infiltrates more on right side - currently requiring 45L 70% on HFNC - ABG 7.40/32/90/20/94% - COVID positive on 07/12/21 - On dexamethasone and Remedesivir - Duoneb q 6 hr nebs scheduled - Continue Zosyn ; so far bacterial antigens, legionella antigen are negative; MRSA PCR pending - Continue aspiraiton precautions - NPO for now - Closely monitor saturations #Shock - hypovolemic vs sepsis -Echo on admission - reported normal LV EF - lactate 2.5 ; NS 250 cc bolus; Currently on d5ns@30 cc/hr - on levophed 8 mcg/hr - procal 1.33 ; on zosyn # Thrombocytopenia - due to underlying Hepatitis C/alcoholism - monitor platelets for now Recommendations conveyed to hospitalist/RN/RT Consult Attestations Medical Necessity Statement: need close ICU monitoring for Altered mental status and acute hypoxic respiratory failure in pt with hepatic encephalopathy/COVID Pneumonia/Aspiration pneumonia Time Spent in Patient Care: Greater than 35 minutes (>than 50% of time spent in counselling and/or direct pt care on unit) . Critical Care Time: The high probability of a clinically significant, sudden or life threatening deterioration of the patient's [neurological, respiratory] system(s) required my full and direct attention, intervention and personal management. The critical care time is as shown. 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
--- NOTE | 2021-07-19 15:36 | CTR_ITS ---
PROCEDURE INFORMATION: Exam: CT Head Without Contrast Exam date and time: 07/19/2021 3:36 PM Age: 66 years old Clinical indication: Altered mental status/memory loss; Confusion or disorientation; Patient HX: AMS - detox TECHNIQUE: Imaging protocol: Computed tomography of the head without contrast. Radiation optimization: All CT scans at this facility use at least one of these dose optimization techniques: automated exposure control; mA and/or kV adjustment per patient size (includes targeted exams where dose is matched to clinical indication); or iterative reconstruction. COMPARISON: No relevant prior studies available. RADIATION DOSE METRICS: Total DLP (mGy-cm): 1119.62 FINDINGS: Brain: Focal area of hypoattenuation within the left temporal lobe which measures 5.0 x 2.7 cm. Imaging appearance most resembles a subacute infarct. No mass effect. No intracranial hemorrhage. Cerebral ventricles: No ventriculomegaly. Paranasal sinuses: Visualized sinuses are unremarkable. No fluid levels. Mastoid air cells: Visualized mastoid air cells are well aerated. Bones/joints: Unremarkable. No acute fracture. Soft tissues: Unremarkable. CT/CT head wo con* [id number] IMPRESSION: Focal area of hypoattenuation measuring 5.0 x 2.7 cm within the left temporal lobe which most resembles a subacute infarct. This can be further evaluated with MRI.
[2021-07-19] MEDS: sodium chloride 0.9% 250 ML IV (16:08)
[2021-07-19] MEDS: dextrose 5%-sod chloride 0.9% 1,000 ML 30 ML IV (16:10)
--- NOTE | 2021-07-19 16:38 | XRR_ITS ---
PROCEDURE INFORMATION: Exam: XR Chest Exam date and time: 07/19/2021 4:38 PM Age: 66 years old Clinical indication: Device placement; Ng tube; Patient HX: Ngt placement; Additional info: Ng tube verification TECHNIQUE: Imaging protocol: XR of the chest. Views: 1 view. COMPARISON: CR (CHEST, ) 07/19/2021 11:06 AM FINDINGS: Tubes, catheters and devices: Right central line terminates in the distal SVC. NG tube seen entering into the left upper abdomen and outside the field of view. Lungs: Consolidative opacities noted at the lung bases and the right upper lung. Pleural spaces: No pleural effusion. No pneumothorax. Heart/Mediastinum: No cardiomegaly. Bones/joints: Visualized osseous structures are intact. XR/XR chest 1V portable [id number] IMPRESSION: 1. Consolidative opacities at the lung bases are right upper lung suspicious for multifocal pneumonia and/or aspiration. 2. NG tube seen entering into the left upper abdomen and outside the field of view. Right central line in proper positioning.
--- NOTE | 2021-07-19 17:53 | XRR_ITS ---
PROCEDURE INFORMATION: Exam: XR Chest Exam date and time: 07/19/2021 5:53 PM Age: 66 years old Clinical indication: Device placement; Ng tube; Additional info: Ng tube verification TECHNIQUE: Imaging protocol: XR of the chest. Views: 1 view. COMPARISON: CR (CHEST, ) 07/19/2021 4:58 PM FINDINGS: Tubes, catheters and devices: There is an enteric tube, the tip of the enteric tube is not included in the image. However, the tube is seen extending into the stomach. Right internal jugular central line is stable in position with the tip in the superior vena cava. Lungs: Stable lydd-ln-fhkmtihu interstitial pulmonary edema with superimposed alveolar edema versus atelectasis versus pneumonia in the right upper lobe and right middle lobe. There is improving alveolar airspace disease in the right and left lower lobes. Pleural spaces: No pleural effusion. No pneumothorax. Heart/Mediastinum: Stable moderate enlargement of the cardiac silhouette. Mediastinal contours are unremarkable. Vasculature: Stable vascular calcifications in the aorta. Bones/joints: Unremarkable for age. XR/XR chest 1V portable [id number] IMPRESSION: 1. Stable zjxo-qv-[id number] interstitial pulmonary edema with superimposed alveolar edema versus atelectasis versus pneumonia in the right upper lobe and right middle lobe. There is improving alveolar airspace disease in the right and left lower lobes. Recommend followup chest imaging to insure resolution of these findings. 2. There is an enteric tube, the tip of the enteric tube is not included in the image. However, the tube is seen extending into the stomach. 3. Right internal jugular central line is stable in position with the tip in the superior vena cava. 4. Incidental/nonacute findings are listed in the report.
[2021-07-19] MEDS: enoxaparin 40 mg/0.4 mL Syringe SUBCUT (18:10)
[2021-07-19] MEDS: remdesivir 100 MG in sodium chloride 0.9% (100 ml) 100 ML IV (18:10)
[2021-07-19] MEDS: lactulose oral liq 20 gm/30 mL UDC 10 GM PO ×2 (18:46→23:04)
[2021-07-19] MEDS: aspirin 81 mg EC Tablet PO (18:46)
--- NOTE | 2021-07-19 19:12 | PC.NURSE ---
SHift SUmmary: At beggining of shift, patient was alert to self only, Very agitated, hullucinating, and pulling at abel. Ativan was given per [facility] protocol and patient became calm. Patient became hypotensive later in shift and required levophed. Central line was placed by Dr Estrada. Shift was uneventful until patient was taken to CT. CT revealed a left temporal stroke. Teleneurology consulted, nurse implemented new orders. Dr estrada will attempt to contact family to give an update.
--- NOTE | 2021-07-19 19:17 | PC.NURSE ---
Lola: [phone] Sister: Brenda Saran: [phone]
[2021-07-19] MEDS: dexamethasone 4 mg/mL INJ 6 MG IVP (19:45)
--- NOTE | 2021-07-19 20:14 | PC.NURSE ---
hematology supervisor notified that we do not have [employer] tube feedings on our unit. Initiation of nutrition will be delayed.
--- NOTE | 2021-07-19 21:07 | PC.NURSE ---
Flush set for 25 mls/hr.
--- NOTE | 2021-07-19 21:28 | PC.NURSE ---
Bed tilted to the right 8 degrees
[2021-07-19] MEDS: atorvastatin 40 mg Tablet PO (21:45)
--- NOTE | 2021-07-19 22:23 | PC.NURSE ---
While turning patient, he threw his arms up in the air and yelled God Damnit. Pt attempted to push nursing staff away. He does move both legs, although they appear to be severely weak.
[2021-07-19 22:47] LABS: HEP C RNA Viral Load Quant 5.87 Log IU/mL (NOT DETECTED); HEP C RNA Viral Load Quant 738000 IU/mL (NOT DETECTED)
[2021-07-19] MEDS: pantoprazole 40 mg SDV IVP (23:54)
[2021-07-20] VITALS (98 sets, daily range): BP systolic 75–146; BP diastolic 55–98; PULSE 63–89; RESP 10–40; TEMP 35.8–37; O2SAT 86–99; BMI 24.2
--- NOTE | 2021-07-20 00:20 | PC.NURSE ---
Pt became agitated with being turned and having residual from NG checked. Pt turned himself completely onto his left side. Pt tachypneic, rate 24-26 per minute. Lungs have course crackles throughout. Vitals and physical assessment reported to Dr. Berkowitz via secure message.
--- NOTE | 2021-07-20 00:49 | PC.NURSE ---
Dr. Berkowitz at bedside. Chart reviewed. Order for Lasix x 1 received.
[2021-07-20] MEDS: FUROsemide 10 mg/mL SDV 4mL 40 MG IVP (00:57)
[2021-07-20] MEDS: ipratropium-albuterol 3 mL Neb INHALATION ×4 (03:19→20:00)
--- NOTE | 2021-07-20 03:38 | XRR_ITS ---
PROCEDURE INFORMATION: Exam: XR Chest Exam date and time: 07/20/2021 3:38 AM Age: 66 years old Clinical indication: Shortness of breath; Additional info: SOB TECHNIQUE: Imaging protocol: XR of the chest. Views: 1 view. COMPARISON: CR XR chest 1V portable [id number] 07/19/2021 6:03 PM FINDINGS: Tubes, catheters and devices: Support tubes and lines are in good position. Lungs: There is enlargement of the pulmonary vascularity. There is thickening of the interstitial markings. Pleural spaces: Stable small bilateral pleural effusions. Heart/Mediastinum: The heart is mildly enlarged. Bones/joints: Unremarkable. XR/XR chest 1V portable [id number] IMPRESSION: 1. Stable Congestive heart failure. 2. Support tubes and lines are in good position. 3. Stable small bilateral pleural effusions.
[2021-07-20] MEDS: FUROsemide 10 mg/mL SDV 2mL 20 MG IVP (03:39)
--- NOTE | 2021-07-20 03:50 | PC.NURSE ---
Time change at 0200, hence 0300 assessment. Up on entering room, pt noted to be belly breathing and coarse crackles could be heard from the door. Pt noted to have pulled NG part of the way out. Tube feedings stopped immediately. Pt repositioned with assist of 3. Pt became aggressive and combative. Order obtained for bilateral soft wrist restraints to prevent pulling out tubes and oxygen. NG inserted and secured. NT and oral suctioning attempted by RT. Dr. Berkowitz notified of vitals, physical assessment, current output, medication doses, and pt's inablility to produce a cough and follow directions. Orders received for Lasix and ABG. CXR ordered to verify tube placement.
--- NOTE | 2021-07-20 03:56 | PC.NURSE ---
Pt still appears to have some abdominal breathing, but much less labored. Lung sounds improved. Adventitious lung sounds no longer audible without stethoscope.
--- NOTE | 2021-07-20 04:27 | PC.NURSE ---
Pt withdraws legs from pain, but localizes upper extremities to pain. Pt shakes head back and forth aggressively when oral care or eye care is attempted. When staff is not in room, pt rests quietly, without signs of agitation.
[2021-07-20 04:38] LABS: Basophils % 0.2 %; Hemoglobin 13.8 g/dL (11.7-16.6); Lymphocytes # 0.4 10^3/uL (0.8-4.8); Lymphocytes % 4.7 %; Mean Corpuscular HGB Conc 34.5 g/dL (30.0-36.0); Mean Corpuscular Volume 95.7 fl (80-94); Mean Platelet Volume 10.8 fL (7.4-10.4); Monocytes # 0.5 10^3/uL (0.2-0.9); Monocytes % 6.5 %; Neutrophils # 7.27 10^3/uL (1.8-7.7); Neutrophils % 87.6 %; Nucleated Red Blood Cells % 0 %; Platelet Count 95 10^3/cmm (130-400); Red Blood Count 4.18 10^6/uL (4.1-5.3); Red Cell Distribution Width 17.4 % (12.1-15.1); White Blood Count 8.3 10^3/uL (4.0-10.0)
[2021-07-20 04:43] LABS: INR 1.73 (0.8-1.2)
[2021-07-20 04:50] LABS: Ammonia 46 umol/L (16-60)
[2021-07-20 04:51] LABS: Alanine Aminotransferase 22 U/L (0-41); Albumin Level 3.2 g/dL (3.5-5.2); Alkaline Phosphatase 51 IU/L (40-130); Anion Gap 16.8 (5-19); Aspartate Amino Transferase 35 U/L (0-40); Blood Urea Nitrogen 50 mg/dL (8-23); C Reactive Protein 32.3 mg/L (0.0-4.9); Calcium 8.9 mg/dL (8.5-10.5); Carbon Dioxide 20 mmol/L (22-29); Chloride 106 mmol/L (98-107); Globulin 4.9 g/dL (1.3-4.6); Glucose 218 mg/dL (65-115); Magnesium 2.3 mg/dL (1.7-2.3); Osmolality Calculated 310 mOsm/kg (285-295); Phosphorus 4.4 mg/dL (2.5-4.5); Sodium 140 mmol/L (136-145); Total Protein 8.1 g/dL (6.6-8.7)
[2021-07-20 04:52] LABS: Lactate (Lactic Acid level) 2.8 mmol/L (0.5-2.2)
[2021-07-20 05:07] LABS: Potassium 2.8 mmol/L (3.5-5.1)
[2021-07-20 05:12] LABS: Slide Review Slide Review Perform
[2021-07-20 05:23] LABS: ABG PCO2 26.9 mmHg (35-45); ABG PH Result 7.46 (7.35-7.45); Alveolar-Arterial Oxygen Gradi 50.9 mmHg (5-10); Arterial Blood Gas Hematocrit 45.7 % (42-52); Base Excess ABG -3.1 mmol/L (-2.0-2.0); Blood Gas Allen Test Pos; Blood Gas Sample Site Radial, right; Blood Gas Sample Type Arterial; Carboxyhemoglobin 0.6 %THgb (0.4-20.1); HCO3 ABG 19.2 mmol/L (22-26); HGB O2 Sat 93.3 % (95-100); Ionized Calcium Level - ABG 1.1 mmol/L (1.1-1.4); Methemoglobin 0.9 % (0.4-1.5); Oxygen Device NC; Oxygen Saturation ABG 94.7; PO2 ABG 73.7 mmHg (80.0-100.0); Potassium Level - ABG 2.8 mmol/L (3.5-5.0); Total Hemoglobin 14.9 g/dL (14-18)
[2021-07-20] MEDS: lactulose oral liq 20 gm/30 mL UDC 10 GM PO ×2 (05:30→17:16)
[2021-07-20] MEDS: potassium chloride premix 100 ML 25 MEQ IV (05:31)
[2021-07-20] MEDS: piperacillin-tazobactam 3.375 GM in sodium chloride 0.9% (plus) 50 ML IV (05:57)
[2021-07-20] MEDS: dexmedeTOMIDine 0.9 % NaCL 400 MCG/100 ML PREMIX IV ×2 (05:57→12:30)
[2021-07-20 05:59] LABS: NT Pro B Type Natriuretic Pept 6130 pg/mL (0-125); Procalcitonin 0.65 ng/mL (0-0.5)
[2021-07-20 06:09] LABS: Creatine Phosphokinase 66 U/L (39-308)
--- NOTE | 2021-07-20 08:55 | CTR_ITS ---
PROCEDURE INFORMATION: Exam: CT Head Without Contrast Exam date and time: 07/20/2021 8:55 AM Age: 66 years old Clinical indication: Altered mental status/memory loss. Altered mental status. TECHNIQUE: Imaging protocol: Computed tomography of the head without contrast. Radiation optimization: All CT scans at this facility use at least one of these dose optimization techniques: automated exposure control; mA and/or kV adjustment per patient size (includes targeted exams where dose is matched to clinical indication); or iterative reconstruction. COMPARISON: CT head wo con* [id number] 07/19/2021 5:04 PM RADIATION DOSE METRICS: Total DLP (mGy-cm): 1144.72 FINDINGS: Brain: No acute intracranial hemorrhage. An infarct is again noted in the left temporal region. No mass, mass effect or midline shift. There is mild patchy subcortical and periventricular hypodensity, most commonly associated with small vessel ischemic disease of indeterminate age. 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 Cerebral ventricles: The ventricles are normal in configuration. Paranasal sinuses: The visualized paranasal sinuses are clear. Mastoid air cells: No mastoid effusion. Orbital cavities: The visualized orbits are unremarkable. Bones/joints: No acute fracture is seen. Soft tissues: No scalp soft tissue swelling is appreciated. CT/CT head wo con* [id number] IMPRESSION: 1. Similar appearing subacute infarct in the left temporal region 2. Mild presumed small vessel ischemic disease of indeterminate age. 3. No acute intracranial hemorrhage.
--- NOTE | 2021-07-20 08:55 | CTR_ITS ---
PROCEDURE INFORMATION: Exam: CT Angiography Head With Contrast, Arteriography Exam date and time: 07/20/2021 8:55 AM Age: 66 years old Clinical indication: Cognitive deficit; Altered mental status; Additional info: CVA TECHNIQUE: Imaging protocol: Computed tomography angiography of the head with contrast. Exam focused on the arteries. 3D rendering (Not supervised by radiologist): MIP and/or 3D reconstructed images were created by the technologist. Total images: [id number] Radiation optimization: All CT scans at this facility use at least one of these dose optimization techniques: automated exposure control; mA and/or kV adjustment per patient size (includes targeted exams where dose is matched to clinical indication); or iterative reconstruction. Contrast material: VISIPAQUE 320; Contrast volume: 95 ml; Contrast route: INTRAVENOUS (IV); COMPARISON: CT head wo con* [id number] 07/20/2021 11:20 AM RADIATION DOSE METRICS: Total DLP (mGy-cm): 1691.47 FINDINGS: ANTERIOR CIRCULATION: Right internal carotid artery: Unremarkable. Intracranial segment is patent with no significant stenosis. No aneurysm. Right middle cerebral artery: Unremarkable. No occlusion or significant stenosis. No aneurysm. Right anterior cerebral artery: Unremarkable. No occlusion or significant stenosis. No aneurysm. Left internal carotid artery: Unremarkable. Intracranial segment is patent with no significant stenosis. No aneurysm. Left middle cerebral artery: Unremarkable. No occlusion or significant stenosis. No aneurysm. Left anterior cerebral artery: Unremarkable. No occlusion or significant stenosis. No aneurysm. POSTERIOR CIRCULATION: Right vertebral artery: Unremarkable. No occlusion or significant stenosis. No aneurysm. Left vertebral artery: Unremarkable. No occlusion or significant stenosis. No aneurysm. Basilar artery: Unremarkable. No occlusion or significant stenosis. No aneurysm. Right posterior cerebral artery: Unremarkable. No occlusion or significant stenosis. No aneurysm. Left posterior cerebral artery: Unremarkable. No occlusion or significant stenosis. No aneurysm. Brain: Global brain atrophy and chronic white matter ischemic changes are present. Irregular area of low density in the left temporal lobe with loss of garcia-white matter differentiation consistent with a subacute infarct. Cerebral ventricles: Ventricles are appropriate in size for degree of atrophy. Bones/joints: Unremarkable. No acute fracture. Soft tissues: Unremarkable. Other findings: No significant stenosis or large vessel occlusion. PROCEDURE INFORMATION: Exam: CT Angiography Neck With Contrast Exam date and time: 07/20/2021 8:55 AM Age: 66 years old Clinical indication: Cognitive deficit; Altered mental status; Additional info: CVA TECHNIQUE: Imaging protocol: Computed tomography angiography of the neck with contrast. 3D rendering (Not supervised by radiologist): MIP and/or 3D reconstructed images were created by the technologist. Radiation optimization: All CT scans at this facility use at least one of these dose optimization techniques: automated exposure control; mA and/or kV adjustment per patient size (includes targeted exams where dose is matched to clinical indication); or iterative reconstruction. Contrast material: VISIPAQUE 320; Contrast volume: 95 ml; Contrast route: INTRAVENOUS (IV); COMPARISON: CT head wo [facility]* [id number] 07/20/2021 11:20 AM RADIATION DOSE METRICS: Total DLP (mGy-cm): 1691.47 FINDINGS: Tubes, catheters and devices: Enteric tube partially visualized. Right common carotid artery: No stenosis. No dissection or occlusion. Right internal carotid artery: Calcified atherosclerotic plaque is noted at the carotid bifurcations bilaterally. Mild stenosis of the proximal right ICA secondary to calcified atherosclerotic plaque. Right external carotid artery: No occlusion or stenosis of the origin. Left common carotid artery: No stenosis. No dissection or occlusion. Left internal carotid artery: Mild stenosis of the proximal left ICA secondary to calcified atherosclerotic plaque Left external carotid artery: No occlusion or stenosis of the origin. Right vertebral artery: No stenosis. No dissection or occlusion. Left vertebral artery: No stenosis. No dissection or occlusion. Soft tissues: Normal. No significant soft tissue swelling. Bones/joints: No acute fracture. Lungs: Irregular areas of lung opacity/consolidation seen in the upper lobes may represent a multi lobar pneumonia. Other findings: Examination is motion limited. CT/CT angio headneck* [id number] IMPRESSION: 1. Irregular area of low density in the left temporal lobe with loss of garcia-white matter differentiation consistent with a subacute infarct. 2. No significant stenosis nor large vessel occlusion. IMPRESSION: No hemodynamically significant stenosis or occlusion. REFERENCES: NASCET CRITERIA. The degree of internal carotid artery stenosis is based on NASCET criteria. Normal is no stenosis. Mild is less than 50% stenosis. Moderate is 50-69% stenosis. Severe is 70% to 99% stenosis. Total occlusion is no detectable patent lumen.
--- NOTE | 2021-07-20 08:57 | PM.PN ---
Subjective Subjective: -Yesterday evening CT had been showed focal area of hypoattenuation measuring 5 x 2.7 cm noted in the left temporal lobe patient was presented with subacute infarct -Overnight patient is still confused and his NG tube and possible aspiration -While he was agitated he was moving all his limbs -He was placed on Precedex 0.7 -Oxygen requirements remain the same at 45 L 70% saturating 96% -Other labs and imaging reviewed -Updated over phone- she is admitted at some other hospital and will come to see patient tomorrow-she did reported that patient drinks alcohol every day Vitals/I&O/Wt Last Vital Signs Temp 96.4 F L 07/20/21 07:45 Pulse 64 07/20/21 08:22 Resp 22 H 07/20/21 08:16 BP 85/60 07/20/21 07:45 Pulse Ox 95 07/20/21 08:16 07/19/21 07/20/21 07/20/21 21:59 06:59 14:59 Intake Total Output Total Balance Weight last 48 hrs Weight 178 lb 8 oz Weight 195 lb 1.6 oz Physical Exam Narrative: PHYSICAL EXAM: General: lying in bed, sedated HEENT:NCAT, PERRLA, EOMI Neck: Supple Lungs: Increased coarse sounds bilaterally Heart: s1/s2, RRR Abd: soft, NT, ND, BS + Normoactive Extremities: No edema CARGO TRIMMER: sedated and sensory remains intact and moves all limbs tactile stimuli SKIN: no rash LDA: # CVC: Right IJ 07/19/2021 Urinary Catheter Management: Bartlett: Cath Placed During This Visit: yes Reason for Continuing Indwelling Catheter: Accurate Measurement of Urinary Output in Critically Ill Patients Urinary Catheter Date of Insertion: 07/18/21 Urinary Catheter Time of Insertion: 12:24 Data : 07/20/21 04:22 07/20/21 04:22 Other Labs: Radiology Impressions Chest CTA 07/17/21 18:35 IMPRESSION: 1. No evidence for pulmonary embolus. Evaluation of the smaller arteries is limited by significant breathing motion artifact. 2. No acute pulmonary finding. 3. Liver cirrhosis with portal venous hypertension. 4. Splenomegaly. Liver Ultrasound 07/18/21 11:48 IMPRESSION: 1. Technically very limited evaluation of the RIGHT upper quadrant due to lack of cooperation and short of breath. 2. Moderate hepatomegaly with changes of cirrhosis. Unable to evaluate the portal vein for reversal of flow. 3. Small amount of gallbladder sludge with no stones identified. Head CT 07/19/21 15:36 IMPRESSION: Focal area of hypoattenuation measuring 5.0 x 2.7 cm within the left temporal lobe which most resembles a subacute infarct. This can be further evaluated with MRI. ADDENDUM: 07/19/21 1739 Findings were discussed with NAYANA KINGSTON at 07/19/2021 5:36 PM DIDACTIC PROGRAM IN DIETETICS DIRECTOR. Chest X-Ray 07/20/21 03:38 IMPRESSION: 1. Stable Congestive heart failure. 2. Support tubes and lines are in good position. 3. Stable small bilateral pleural effusions. Carotid Doppler Study 07/20/21 18:20 IMPRESSION: 1. Suboptimal examination due to poor patient positioning and inability to cooperate. 2. No definite arterial stenosis involving the visualized carotid arteries. 3. A large bandage over the right neck obscures evaluation of the left mid and distal internal carotid artery. 4. No definite flow is seen in the left vertebral artery. This could be due to poor patient positioning or arterial occlusion. 5. All of the waveforms (both internal carotid and common carotid) show high resistance flow. 6. Heterogeneous atherosclerotic plaque in the carotid bulb. 7. Consider CTA to further assess. REFERENCES: SRU CRITERIA. The degree of internal carotid artery stenosis is based on criteria defined by the Society of Radiologists in Ultrasound (SRU). Normal is no stenosis. Mild is less than 50% stenosis. Moderate is 50-69% stenosis. Severe is greater than 69% stenosis to near occlusion. Near occlusion is a markedly narrowed lumen. Total occlusion is no detectable patent lumen. ADDENDUM: 07/20/[address] Kingston at 07/20/2021 8:47 AM CDT. Laboratory Results WBC 8.3 10^3/uL (4.0-10.0) 07/20/21 04:22 RBC 4.18 10^6/uL (4.1-5.3) 07/20/21 04:22 Hgb 13.8 g/dL (11.7-16.6) 07/20/21 04:22 Hct 40.0 % (42.0-52.0) L 07/20/21 04:22 MCV 95.7 fl (80-94) H 07/20/21 04:22 MCH 33.0 pg (28.0-34.0) 07/20/21 04:22 MCHC 34.5 g/dL (30.0-36.0) D 07/20/21 04:22 RDW 17.4 % (12.1-15.1) H 07/20/21 04:22 Plt Count 95 10^3/cmm (130-400) L 07/20/21 04:22 MPV 10.8 fL (7.4-10.4) H 07/20/21 04:22 Neut % (Auto) 87.6 % 07/20/21 04:22 Lymph % (Auto) 4.7 % 07/20/21 04:22 [place] % (Auto) 6.5 % 07/20/21 04:22 Eos % (Auto) 0.0 % 07/20/21 04:22 Baso % (Auto) 0.2 % 07/20/21 04:22 Neut # (Auto) 7.27 10^3/uL (1.8-7.7) 07/20/21 04:22 Lymph # (Auto) 0.4 10^3/uL (0.8-4.8) L 07/20/21 04:22 [place] # (Auto) 0.5 10^3/uL (0.2-0.9) 07/20/21 04:22 Eos # (Auto) 0.0 10^3/uL (0.0-0.8) 07/20/21 04:22 Baso # (Auto) 0.0 10^3/uL (0.0-0.1) 07/20/21 04:22 Nucleated RBC % (auto) 0 % 07/20/21 04:22 Nucleated RBCs # 0.0 /100WBC 07/20/21 04:22 PT 20.70 SECONDS (12.1-14.9) H 07/20/21 04:22 INR 1.73 (0.8-1.2) H 07/20/21 04:22 D-Dimer 18.67 ug/mIFEU (0-0.59) H 07/18/21 03:20 Specimen Type Arterial 07/20/21 04:00 Sample Site Radial, right 07/20/21 04:00 ABG pH 7.46 (7.35-7.45) H 07/20/21 04:00 ABG pCO2 26.9 mmHg (35-45) L 07/20/21 04:00 ABG pO2 73.7 mmHg (80.0-100.0) L 07/20/21 04:00 ABG HCO3 19.2 mmol/L (22-26) L 07/20/21 04:00 ABG O2 Saturation 94.7 07/20/21 04:00 ABG Base Excess -3.1 mmol/L (-2.0-2.0) L 07/20/21 04:00 Deejay Test Pos 07/20/21 04:00 A-a O2 Gradient 50.9 mmHg (5-10) H 07/20/21 04:00 Hematocrit 45.7 % (42-52) 07/20/21 04:00 Hgb O2 Saturation 93.3 % (95-100) L 07/20/21 04:00 Carboxyhemoglobin 0.6 %THgb (0.4-20.1) 07/20/21 04:00 Methemoglobin 0.9 % (0.4-1.5) 07/20/21 04:00 Total Hemoglobin 14.9 g/dL (14-18) 07/20/21 04:00 Sodium 144.0 mmol/L (131-143) H 07/20/21 04:00 Potassium 2.8 mmol/L (3.5-5.0) L 07/20/21 04:00 Glucose 218.0 mg/dL (70-115) H 07/20/21 04:00 Ionized Calcium 1.1 mmol/L (1.1-1.4) 07/20/21 04:00 O2 Delivery Device Nc 07/20/21 04:00 O2 Liters/Min 50.0 % 07/20/21 04:00 FiO2 70.0 % 07/20/21 04:00 General Helper ID ellpe 07/20/21 04:00 Sodium 140 mmol/L (136-145) 07/20/21 04:22 Potassium 2.8 mmol/L (3.5-5.1) L* D 07/20/21 04:22 Chloride 106 mmol/L (98-107) 07/20/21 04:22 Carbon Dioxide 20 mmol/L (22-29) L 07/20/21 04:22 Anion Gap 16.8 (5-19) 07/20/21 04:22 BUN 50 mg/dL (8-23) H 07/20/21 04:22 Creatinine 1.4 mg/dL (0.7-1.2) H 07/20/21 04:22 GFR Calculation 51.0 mL/min (90-130) L 07/20/21 04:22 Glucose 218 mg/dL (65-115) H 07/20/21 04:22 Calculated Osmolality 310 mOsm/kg (285-295) H 07/20/21 04:22 Lactate 2.8 mmol/L (0.5-2.2) H 07/20/21 04:22 Calcium 8.9 mg/dL (8.5-10.5) 07/20/21 04:22 Phosphorus 4.4 mg/dL (2.5-4.5) 07/20/21 04:22 Magnesium 2.3 mg/dL (1.7-2.3) 07/20/21 04:22 Total Bilirubin 4.0 mg/dL (0.15-1.2) H 07/20/21 04:22 AST 35 U/L (0-40) 07/20/21 04:22 ALT 22 U/L (0-41) 07/20/21 04:22 Alkaline Phosphatase 51 IU/L (40-130) 07/20/21 04:22 Ammonia 46 umol/L (16-60) 07/20/21 04:22 Creatine Kinase 66 U/L (39-308) 07/20/21 04:22 C-Reactive Protein 32.3 mg/L (0.0-4.9) H 07/20/21 04:22 NT-Pro-B Natriuret Pep 6130 pg/mL (0-125) H 07/20/21 04:22 Total Protein 8.1 g/dL (6.6-8.7) 07/20/21 04:22 Albumin 3.2 g/dL (3.5-5.2) L 07/20/21 04:22 Globulin 4.9 g/dL (1.3-4.6) H 07/20/21 04:22 Procalcitonin 0.65 ng/mL (0-0.5) H 07/20/21 04:22 TSH 1.47 uIU/mL (0.27-4.20) 07/18/21 03:20 Urine Color Yellow (Yellow) 07/18/21 15:11 Urine Appearance Clear (CLEAR) 07/18/21 15:11 Urine pH 5 (5-7) 07/18/21 15:11 Ur Specific [place] 1.010 (1.005-1.030) 07/18/21 15:11 Urine Protein Trace (Negative) 07/18/21 15:11 Urine Glucose (UA) Norm (Normal) 07/18/21 15:11 Urine Ketones Negative (Negative) 07/18/21 15:11 Urine Blood 3+ (Negative) H 07/18/21 15:11 Urine Nitrate Negative (Negative) 07/18/21 15:11 Urine Bilirubin Neg (Negative) 07/18/21 15:11 Urine Urobilinogen Neg mg/dL (Negative) 07/18/21 15:11 Ur Leukocyte Esterase Negative (Negative) 07/18/21 15:11 Urine RBC 10-15 /hpf (0-2) H 07/18/21 15:11 Urine WBC 10-15 /hpf (0-5) H 07/18/21 15:11 Ur Squamous Epith Cells 0-4 /hpf (0-5) H 07/18/21 15:11 Amorphous Sediment Not Reportable 07/18/21 15:11 Urine Bacteria Trace /hpf (NONE) 07/18/21 15:11 Ethyl Alcohol < 10 mg/dL (0-10) 07/17/21 15:42 Hepatitis A IgM Ab Non-reactive (Nonreactive) 07/18/21 03:20 Hep Bs Antigen Non-reactive (Nonreactive) 07/18/21 03:20 Hep Bs Antibody 3.5 (11.5-1000) L 07/18/21 03:20 Hep B Core Total Ab Non-reactive (Nonreactive) 07/18/21 03:20 Hepatitis C Antibody Reactive (Nonreactive) H 07/18/21 03:20 HCV RNA (PCR) IUs/ml 5.87 Log IU/mL (NOT DETECTED) H 07/18/21 04:29 HCV RNA (PCR) IU log10 [id number] IU/mL (NOT DETECTED) H 07/18/21 04:29 HIV 1&2 Ab & HIV 1 Ag Non-reactive (Non-Reactiv) 07/18/21 03:20 HIV 1&2 Antibody Non-reactive (Non-Reactiv) 07/18/21 03:20 Micro: Microbiology 07/18/21 15:11 Urine Culture - Final Urine Catheterized 07/18/21 12:32 Blood Culture - Preliminary Blood NEGATIVE TO DATE 07/18/21 12:27 Blood Culture - Preliminary Blood NEGATIVE TO DATE A&P Assessment and plan (1) Acute and chronic respiratory failure with hypoxia: Status: Acute (2) Alcohol withdrawal: Status: Acute (3) Acute encephalopathy: Status: Acute (4) Shock: Status: Acute (5) Acute hepatitis C: Status: Acute (6) Hepatic encephalopathy: Status: Acute (7) Thrombocytopenia: Status: Acute (8) Liver cirrhosis: Status: Acute (9) COVID: Status: Acute (10) Hypokalemia: Status: Acute Plan #Altered mental status-subacute left temporal lobe CVA /on admission hepatic encephalopathy in pt with alcoholic cirrhosis and h/o alcoholism and hepatitis C - likely in delirium tremens/?? Covid vasculitis - today morning received ativan 2mg during my exam and he was seen sleeping ; vitals stable - admission ammonia 70 - on lactulose - target 2-3 soft bm/day; today ammonia 30 - Rifaximin 550 mg PO BID - On CIWA protocol - Ativan 1 mg every 4 hours as needed prn - monitor electrolytes K, mg and supplement accordingly -MVT/FA/Thiamine -CT head showed focal area of hyper attenuation measuring 5 x 2.7 cm within the left temporal lobe resembling subacute infarct -Tube feeding at 10 to 15 cc-aspiration precautions -Taper off Precedex and perform.Neurochecks every 2 hours -Recommended bedside physical therapy -Aspirin, statin -Maintain MAP close to 70 -Avoid hypotonic fluids -Neurology consult # Acute hypoxic respiratory failure - covid 19 and possible aspiration - CT 07/18/21: no evidence of PE; Emphysematous changes - Today chest x ray - worsening infiltrates more on right side - currently requiring 45L 70% on HFNC - ABG 7.4 11/02//19/94%-we will titrate down - COVID positive on 07/12/21 - On dexamethasone and Remedesivir - Duoneb q 6 hr nebs scheduled - Continue Zosyn ; so far bacterial antigens, legionella antigen are negative; MRSA PCR pending - Continue aspiraiton precautions -Tube feeding at 10 cc/hour - Closely monitor saturations #Shock - hypovolemic vs sepsis -Echo on admission - reported normal LV EF -Currently on Levophed 1 MCG/hour -Given persistently normal saline bolus - procal 1.33 ; on zosyn #Hypokalemia 2.8 likely secondary to Lasix -Receiving KCl 40 M EQ and scheduled for second dose # Thrombocytopenia - due to underlying Hepatitis C/alcoholism - monitor platelets for now Recommendations conveyed to hospitalist/RN/RT Updated over phone- she is admitted at some other hospital and will come to see patient tomorrow Attestations Medical Necessity Statement*: Patient requires hospitalization for alcohol withdrawal, acute encephalopathy, COVID-19 pneumonia, acute acute hypoxic respiratory failure, EDGARD, liver cirrhosis, thrombocytopenia, sepsis, shock Time Spent in Patient Care: Greater than 35 minutes (>than 50% of time spent in counselling and/or direct pt care on unit). Critical Care Time: The high probability of a clinically significant, sudden or life threatening deterioration of the patient's [neurology, pulmonary, renal] system(s) required my full and direct attention, intervention and personal management. The critical care time is as shown. 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
[2021-07-20] MEDS: potassium chloride premix 100 ML 50 MEQ IV (09:25)
[2021-07-20] MEDS: aspirin 81 mg EC Tablet PO (09:26)
[2021-07-20] MEDS: folic acid 1 mg Tablet PO (09:26)
[2021-07-20] MEDS: midodrine 5 mg TABLET 10 MG PO ×3 (09:26→20:23)
[2021-07-20] MEDS: multivitamin therapeutic Tablet 1 TAB PO (09:26)
--- NOTE | 2021-07-20 10:45 | P.PN_ITS ---
Subjective Subjective: Yesterday evening, patient CT of the head came back positive for temporal lobe subacute infarct, during my examination yesterday evening, patient was alert to person, not to place, not to time no facial droop, no slurring of his words, had received Ativan, no focal neurologic deficits that I could discern, does have encephalopathy secondary hypoxia, alcohol withdrawal so it is difficult for me to assess his NIH stroke scale, timeframe of stroke is unknown could be within 72 hours as he has not had a CT of the head on admission, and he continued to have acute encephalopathy, altered mental status throughout his hospitalization I spoke to physicians at [facility], telestroke, advised to continue to monitor continue medical management, hold off on anticoagulation for at least 2 weeks Overnight patient had episodes of agitation, pulled out his NG tube, concerns for aspiration, moving upper and lower extremities, agitated with nursing staff, episodes of confusion Patient was seen this morning, is alert to person, but falls back asleep, not oriented to person, not oriented time, does withdraw from pain, pupils equal round reactive to light, prefers to lay to the left, currently normal sinus rhythm, out of atrial fibrillation, on 1 of Levophed, on 45 L 65% FiO2 Vitals/I&O/Wt Last Vital Signs Temp 96.4 F L 07/20/21 07:45 Pulse 73 07/20/21 09:30 Resp 20 H 07/20/21 09:30 BP 104/68 07/20/21 09:30 Pulse Ox 92 07/20/21 09:30 07/19/21 07/20/21 07/20/21 21:59 06:59 14:59 Intake Total Output Total 250 / 250 Balance -250 / -250 Weight last 48 hrs Weight 80.966 kg Weight 88.496 kg Physical Exam Const: COMMON NORMALS: no acute distress EXAM LIMITATIONS: altered mental status OTHER: Alert to person, not to place, not to time, episodes of agitation, spontaneous movement upper lower extremities, withdraws from pain, difficult to assess his NIH stroke scale given his encephalopathy from hypoxia, alcohol withdrawal Right central line in place Nasogastric tube in place Heated high flow in place Bartlett catheter in place Eye: COMMON NORMALS: Equal, round and reactive pupils present PUPIL: Yes Equal, round and reactive pupils present Resp: COMMON NORMALS: normal respiratory effort, No retractions and No use of accessory muscles AUSCULTATION: crackles and wheezes Cardio: COMMON NORMALS: regular rate, regular rhythm, S1 normal heart sound present and S2 normal heart sound present RATE: regular rate RHYTHM: regular rhythm HEART SOUNDS: S1 normal heart sound present and S2 normal heart sound present GI: COMMON NORMALS: Normal to inspection, nondistended, normoactive bowel sounds present, Soft to palpation and non-tender PALPATION: Yes Soft to palpation Extremity: COMMON NORMALS: no pedal edema Urinary Catheter Management: Bartlett: Cath Placed During This Visit: yes Reason for Continuing Indwelling Catheter: Accurate Measurement of Urinary Output in Critically Ill Patients Urinary Catheter Date of Insertion: 07/18/21 Urinary Catheter Time of Insertion: 12:24 Data : 07/20/21 04:22 07/20/21 04:22 Micro: Microbiology 07/18/21 15:11 Urine Culture - Final Urine Catheterized 07/18/21 12:32 Blood Culture - Preliminary Blood NEGATIVE TO DATE 07/18/21 12:27 Blood Culture - Preliminary Blood NEGATIVE TO DATE A&P Assessment and plan (1) Acute CVA (cerebrovascular accident): -CT of the head Focal area of hypoattenuation measuring 5.0 x 2.7 cm within the left temporal lobe which most resembles a subacute infarct. This can be further evaluated with MRI. -NIH stroke scale difficult to assess as patient has acute encephalopathy, multifactorial from sepsis, shock, hypoxia, COVID-19, alcohol withdrawal -Timeframe of CVA difficult to access, possibly within the last 72 hours, given acute encephalopathy throughout his hospitalization -Does have spontaneous movement of upper and lower extremity, does withdraw from pain, pupils equal round reactive to light -Discussed with telestroke at [facility], advised of conservative intervention, hold off full dose anticoagulation for least 2 weeks due to hemorrhagic conversion risk -Does have history of alcoholism, does have COVID-19 possibly hypercoagulability associate with COVID-19, had episodes of A. fib during his hospitalization -Location of temporal lobe CVA, likely will result in a receptive aphasia, possibly contributing to his acute encephalopathy -Will obtain CTA of the head and neck -Repeat CT of the head today -Continue aspirin, statin -Allow for permissive hypertension -Neurochecks, aspiration precautions, NIH stroke scale Status: Acute (2) Sepsis: -Secondary to pneumonia, COVID-19 pneumonia, acute respiratory failure chest x- ray showing right upper lobe infiltrate, likely aspiration event -Switch to Primaxin -Right IJ in place -Continue Levophed -Avoid fluids due to concerns of fluid overload -High risk of intubation the next 24 hours -Keep negative fluid status -Monitor respiratory status closely Status: Acute (3) Shock: -Sepsis secondary to pneumonia, COVID-19 pneumonia -As above Status: Acute (4) Acute encephalopathy: -Secondary to pneumonia, right upper lobe, COVID-19 pneumonia, left temporal lobe CVA Status: Acute (5) Acute and chronic respiratory failure with hypoxia: -Secondary to right upper lobe pneumonia, COVID-19 pneumonia, aspiration pneumonia -Currently on heated high flow at 75%, 45 L -Monitor respiratory status closely -Diuresis due to concerns for fluid overload -Primaxin for antibiotic coverage -Remdesivir -Decadron -Precedex for agitation Status: Acute (6) Alcohol withdrawal: -CIWA score Status: Acute (7) Atrial fibrillation with RVR: -Start on Cardizem drip -Maintain magnesium greater than 2, potassium greater than 4 -Anticoagulation relatively contraindicated given history of thrombocytopenia, alcoholism, risk of bleeding, left temporal lobe CVA due to risk of hemorrhagic transformation -Cardiac echocardiogram, no radiographic evidence of thrombus seen LV systolic function is normal with EF of 55 to 60%. ?Mild mitral annular calcification. ?Trace tricuspid regurgitation. ?No comparison studies are available Status: Acute (8) Acute hepatitis C: Status: Acute (9) COVID: Remdisivir 200mg iv x 1 followed by 100mg iv daily dexamethasone 6mg IVP daily duoneb q6h, budesonide q12h Continue Zosyn Flutter valve/spirometer at bedside trend inflammatory markers including CRP, D dimer CTA negative for PE, gross consolidation Status: Acute (10) Dehydration: related to COVID and GI losses Status: Acute (11) EDGARD (acute kidney injury): Cr 1.4, baseline not known at this time likely related to dehydration Continue to monitor Status: Acute (12) Liver cirrhosis: incidentally discovered on CTA chest Elevted T .bili, elevated INR, thrombocytopenia H/o alcohol consumption+, hepatitis C positive Viral load ordered, HIV ordered Status: Acute (13) Thrombocytopenia: May be related to acute viral illness vs chronic liver disease no bleeding currently Monitor for now Status: Acute (14) Hypoxia: related to covid 19, possible fluid overload after IVF resuscitation Lasix as above CTA negative for PE, pneumothorax, consolidation Status: Acute (15) Hepatic encephalopathy: Ammonia level at 70 today Currenlty awake, increasingly confused, start rifaximin Lactulose 10gm po q4h, titrate to 3-4 BM per day Status: Acute (16) Hypotension: Transient hypotension, currently improved, BP 140/76 at time of assessment after albumin administration monitor closely in ICU Continue midodrine Status: Acute Plan alcohol withdrawal, CIWA Attestations Medical Necessity Statement*: Patient requires hospitalization for acute encephalopathy, will left temporal lobe CVA, hypoxia secondary COVID-19, acute respiratory distress syndrome, acute liver failure, A. 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
[2021-07-20] MEDS: LORazepam 2 mg/mL INJ 1 mL 1 MG IVP (10:50)
[2021-07-20] MEDS: iodixanol 320 mg/mL 100mL Btl IV (11:32)
[2021-07-20] MEDS: pantoprazole 40 mg SDV IVP ×2 (12:29→23:20)
--- NOTE | 2021-07-20 13:03 | XRR_ITS ---
PROCEDURE INFORMATION: Exam: XR Chest Exam date and time: 07/20/2021 1:03 PM Age: 66 years old Clinical indication: Endotracheal tube placement. TECHNIQUE: Imaging protocol: XR of the chest. Views: 1 view. COMPARISON: CR (CHEST, ) 07/20/2021 5:23 AM FINDINGS: Tubes, catheters and devices: Endotracheal tube with tip approximately 5.3 cm above the souleymane. Nasogastric tube projects into the abdomen. Its tip is not included on the current study. Right central venous access device with tip in the SVC. Lungs: There are extensive airspace opacities bilaterally, right greater than left, that appear slightly worsened when compared to prior. Pleural spaces: Probable small left pleural effusion. No pneumothorax. Heart/Mediastinum: The cardiac silhouette is grossly unchanged. No gross evidence of pneumomediastinum. Bones/joints: No gross fracture. XR/XR chest 1V portable [id number] IMPRESSION: 1. Endotracheal tube with tip approximately 5.3 cm above the souleymane. 2. Nasogastric tube projects into the abdomen. Its tip is not included on the current study. 3. Right central venous access device with tip in the SVC. 4. Extensive airspace opacities bilaterally, right greater than left, that appear slightly worsened when compared to prior. 5. Probable small left pleural effusion.
--- NOTE | 2021-07-20 13:11 | ANES.PROC ---
Anesthesia Procedures Procedure/Date: 07/20/21 Procedure Narrative: performed by dr. walker, supervised by dr. schuler Intubation: Time Out Performed: Yes Consent: requested by attending/covering physician and emergency procedure Sedative (amount): etomidate Paralytic (amount): succinylcholine Laryngoscope: fiber optic video scope Assist Device Used: fiber optic device ET Tube Size: 8 ET Tube Uncuffed: Yes Tube Secured Depth (cm): 24 Tube Secured Location: lips Tube Placement Confirmation: visualized tube passing through cords, equal breath sounds bilaterally, no breath sounds over epigastrium and confirmation by capnometry Patient Tolerated Procedure: well and no complications Additional Comments: chest xray confirmed 2-3cm above souleymane, et tube, oxygen saturation at 99% fio2 at 100%, peep 10,
[2021-07-20] MEDS: succinylcholine 20 mg/mL SDV 10mL 120 MG IVP (13:50)
[2021-07-20] MEDS: LORazepam 2 mg/mL INJ 1 mL IVP (13:50)
--- NOTE | 2021-07-20 13:57 | P.PCN_ITS ---
Procedure/Consent Time out: Time Out Performed: Yes Consent: Consent for Procedure: Consent obtained from other (indicate) (), Risks & Benefits reviewed and Agrees to proceed with procedure Procedure Narrative: Procedure: Flexible bronchoscopy with airway inspection, airway clearance of secretions and obtaining bronchoalveolar lavage sample Pre-Operative Diagnosis: Aspiration pneumonia Post-Operative Diagnosis: Same Indication: Worsening hypoxia respiratory failure with chest x-ray showing right lung infiltrates-inpatient with delirium tremens and possible aspiration Anesthesia: Patient is intubated and currently on fentanyl 100 MCG/hour and Versed 6 mg/hour-drips titrated to achieve adequate sedation Pre-procedure Evaluation: Patient was evaluated clinically and ancillary testing reviewed. The risk of having active MTB infection is very low in my clinical judgement. ASA: 4 Malampati score: unable to evaluate due to presence of endotracheal tube Consent: Consents were obtained from [facility] and placed in the chart Procedure Details: Time out was performed by the procedure team and nursing staff. Vent support maintained on Fio2 100. The bronchoscope was introduced through the ETT. A bronchoscopic airway exam was performed to evaluate the visible tracheobronchial tree to the segmental level. Summary of Significant Findings: -Bronchoscope passed through ET tube, 1 ml 1% lidocaine instilled into the trachea, 1 mL in 1 mL in both right and left main bronchus. Distal trachea and main souleymane visualized which were sharp and normal. Then the scope was passed through the right bronchial tree was assessed to include the right mainstem bronchus, RBI, and RUL/RML/RLL bronchi to the segmental and subsegmental levels. No active bleeding noted. Mucosa appeared normal. Copious amount of thin yellowish (possibly gastric ) secretions noted through right mainstem, right lower lobe and right middle lobe. All secretions suctioned. Then the scope was left bronchial tree was assessed to include the left mainstem bronchus, NAHTAN, Lingula, and LLL bronchi to the segmental and subsegmental level. No active bleeding noted. Mucosa appeared normal. Copious amount of thin yellowish (possibly gastric ) secretions noted which were suctioned right away. 40 cc normal saline instilled and 25 cc BAL obtained from right middle lobe, the bronchoscope was then removed and the procedure terminated. Estimated Blood Loss: None Specimens: Bronchoalveolar lavage was taken from right middle lobe and sent for microbiology cultures, wash analysis, fungal cultures Complications:None; patient tolerated the procedure well. Disposition: Patient remains critically ill, intubated and stays in ICU Demario Arnett MD Pulmonary critical Care Medicine [facility] Acute Procedures Epistaxis Control: Time out performed: Yes
--- NOTE | 2021-07-20 14:18 | PC.NURSE ---
NIHSS completed. Patient scored 27. Nurse was unable to properly conduct NIHSS, possible due to withdrawal symptoms. Patient's mental status is very variable. Often times becomes very agitated from minimal stimuli and attempts to hit or kick staff, other times unresponsive. Will yell profanities. Scream out unintelligible words. Patient is unable to be redirected or coached. Patient does not appear to be aware of his behaviors.
--- NOTE | 2021-07-20 14:21 | PC.NURSE ---
Patient was taken to CT department for CT of the head and neck. Transport was uneventful. Patient was uncooperative with staff during scans.
--- NOTE | 2021-07-20 14:21 | PC.NURSE ---
Addendum entered by Luis Fernando Capone RN 07/20/21 14:49: Shortly after returning from CT, patient's work of breathing had increased, his oxygen saturation was in the mid 80's on 65% fio2 HHF, and he has crackles audible form the doorway. Nurse increased FIO2 to 100%, attempted to suction, but was unable to suction anything out. Patient did not have a gag reflex inresponse to the yaunker suction. Patient is not following directions to cough. NUrse alerted Dr walker and Dr Arnett. Dr walker came to assess at bedside and decided to Intubate. Original Note: Shortly after returning from CT, patient's work of breathing had increased, his oxygen saturation was in the mid 80's on 65% fio2 HHF, and he has crackles audible form the doorway. Nurse increased FIO2 to 100%, attempted to suction, but was unable to suction anything out. Patient did not have a gag reflex inresponse to the yaunker suction. Patient is following directions to cough. NUrse alerted Dr walker and Dr Arnett. Dr walker came to assess at bedside and decided to Intubate.
[2021-07-20 15:28] LABS: Apprearance, Bronch Wash Hazy (CLEAR); Total Cells Counted Bronch 300
[2021-07-20 15:29] LABS: Color, Bronc Wash YELLOW
[2021-07-20] MEDS: vancomycin 1,500 MG/300 ML PIGGYBACK 200 MG IV (15:29)
[2021-07-20 15:30] LABS: Bronch Source Right and Left Lobes; PATH Referral Yes
[2021-07-20 15:58] LABS: ABG PCO2 36.1 mmHg (35-45); ABG PH Result 7.39 (7.35-7.45); Arterial Blood Gas Hematocrit 43.2 % (42-52); Base Excess ABG -2.7 mmol/L (-2.0-2.0); Blood Gas Operator Identificat GD; Blood Gas Sample Site Brachial, right; Blood Gas Sample Type Arterial; Carboxyhemoglobin 0.7 %THgb (0.4-20.1); HCO3 ABG 21.8 mmol/L (22-26); HGB O2 Sat 93.2 % (95-100); Ionized Calcium Level - ABG 1.2 mmol/L (1.1-1.4); Methemoglobin 0.9 % (0.4-1.5); Oxygen Device VENT; Oxygen Saturation ABG 94.6; PO2 ABG 79.4 mmHg (80.0-100.0); Potassium Level - ABG 3.3 mmol/L (3.5-5.0); Total Hemoglobin 14.1 g/dL (14-18)
[2021-07-20] MEDS: dexmedeTOMIDine 0.9 % NaCL 400 MCG/100 ML PREMIX 8.85 MCG IV (16:29)
--- NOTE | 2021-07-20 16:36 | PC.NURSE ---
Nurse called , Sherrie, ANd updated her on patient status. Patient is now intubated.
[2021-07-20] MEDS: enoxaparin 40 mg/0.4 mL Syringe SUBCUT (17:14)
--- NOTE | 2021-07-20 18:20 | USR_ITS ---
PROCEDURE INFORMATION: Exam: US Duplex Bilateral Extracranial Arteries, Carotid Arteries Exam date and time: 07/20/2021 6:20 PM Age: 66 years old Clinical indication: Cerebrovascular accident seen on CT of head. Altered mental status. COVID. TECHNIQUE: Imaging protocol: Real-time Duplex ultrasound scan of the bilateral carotid and vertebral arteries combining garcia scale, color Doppler and spectral waveform analysis. Bilateral exam. Exam focused on the carotid arteries. COMPARISON: CT head wo con* [id number] 07/19/2021 5:04 PM FINDINGS: Suboptimal examination due to poor patient positioning and inability to cooperate. There is heterogeneous atherosclerotic plaque in the carotid bulb. All of the waveforms (both internal carotid and common carotid) show high resistance flow. RIGHT: The peak systolic velocity within the proximal common carotid artery is 47 cm/s. The peak systolic velocity within the mid common carotid artery is 42 cm/s. The peak systolic velocity within the distal common carotid artery is 27 cm/s. The peak systolic velocity within the proximal internal carotid artery is 33 cm/s. A large bandage over the right neck obscures evaluation of the left mid and distal internal carotid artery. The peak systolic velocity within the vertebral artery is there is 37 cm/s. There is anterograde flow in the vertebral artery. LEFT: The peak systolic velocity within the proximal common carotid artery is 48 cm/s. The peak systolic velocity within the mid common carotid artery is 25 cm/s. The peak systolic velocity within the distal common carotid artery is 25cm/s. The peak systolic velocity within the proximal internal carotid artery is 36 cm/s. The peak systolic velocity within the mid internal carotid artery is 44 cm/s. The peak systolic velocity within the distal internal carotid artery is 45 cm/s. No definite flow is seen in the left vertebral artery. This could be due to poor patient positioning or arterial occlusion. US/CV carotid duplex BI* [id number] IMPRESSION: 1. Suboptimal examination due to poor patient positioning and inability to cooperate. 2. No definite arterial stenosis involving the visualized carotid arteries. 3. A large bandage over the right neck obscures evaluation of the left mid and distal internal carotid artery. 4. No definite flow is seen in the left vertebral artery. This could be due to poor patient positioning or arterial occlusion. 5. All of the waveforms (both internal carotid and common carotid) show high resistance flow. 6. Heterogeneous atherosclerotic plaque in the carotid bulb. 7. Consider CTA to further assess. REFERENCES: SRU CRITERIA. The degree of internal carotid artery stenosis is based on criteria defined by the Society of Radiologists in Ultrasound (SRU). Normal is no stenosis. Mild is less than 50% stenosis. Moderate is 50-69% stenosis. Severe is greater than 69% stenosis to near occlusion. Near occlusion is a markedly narrowed lumen. Total occlusion is no detectable patent lumen.
[2021-07-20] MEDS: remdesivir 100 MG in sodium chloride 0.9% (100 ml) 100 ML IV (18:37)
[2021-07-20 18:55] LABS: Glucose Point of Care 138 mg/dL (70-110)
[2021-07-20] MEDS: dexamethasone 4 mg/mL INJ 6 MG IVP (20:04)
[2021-07-20] MEDS: atorvastatin 40 mg Tablet PO (20:06)
[2021-07-20] MEDS: dexmedeTOMIDine 0.9 % NaCL 400 MCG/100 ML PREMIX 19.91 MCG IV (22:02)
[2021-07-21] VITALS (82 sets, daily range): BP systolic 103–133; BP diastolic 63–85; PULSE 74–96; RESP 15–22; TEMP 37.6–39.3; O2SAT 88–97
[2021-07-21] MEDS: dexmedeTOMIDine 0.9 % NaCL 400 MCG/100 ML PREMIX 22.12 MCG IV ×2 (03:02→07:50)
[2021-07-21] MEDS: midodrine 5 mg TABLET 10 MG PO ×4 (03:02→21:31)
[2021-07-21] MEDS: ipratropium-albuterol 3 mL Neb INHALATION ×4 (03:22→20:36)
[2021-07-21 04:48] LABS: Basophils % 0.3 %; Hematocrit 35.1 % (42.0-52.0); Hemoglobin 11.8 g/dL (11.7-16.6); Lymphocytes # 0.3 10^3/uL (0.8-4.8); Lymphocytes % 8.1 %; Mean Corpuscular HGB Conc 33.6 g/dL (30.0-36.0); Mean Corpuscular Hemoglobin 33.4 pg (28.0-34.0); Mean Corpuscular Volume 99.4 fl (80-94); Mean Platelet Volume 11.6 fL (7.4-10.4); Monocytes # 0.2 10^3/uL (0.2-0.9); Monocytes % 7.8 %; Neutrophils # 2.55 10^3/uL (1.8-7.7); Neutrophils % 82.5 %; Nucleated Red Blood Cells % 0 %; Platelet Count 68 10^3/cmm (130-400); Red Blood Count 3.53 10^6/uL (4.1-5.3); White Blood Count 3.1 10^3/uL (4.0-10.0)
[2021-07-21 04:52] LABS: INR 1.94 (0.8-1.2)
[2021-07-21 05:01] LABS: Ammonia 60 umol/L (16-60)
[2021-07-21 05:04] LABS: Alanine Aminotransferase 18 U/L (0-41); Albumin Level 3.9 g/dL (3.5-5.2); Alkaline Phosphatase 40 IU/L (40-130); Anion Gap 16.9 (5-19); Aspartate Amino Transferase 30 U/L (0-40); Blood Urea Nitrogen 55 mg/dL (8-23); C Reactive Protein 23.4 mg/L (0.0-4.9); Calcium 7.9 mg/dL (8.5-10.5); Carbon Dioxide 23 mmol/L (22-29); Chloride 113 mmol/L (98-107); Globulin 3.4 g/dL (1.3-4.6); Glomerular Filtration Rate 43.7 mL/min (90-130); Glucose 161 mg/dL (65-115); Magnesium 2.5 mg/dL (1.7-2.3); Osmolality Calculated 327 mOsm/kg (285-295); Phosphorus 4.6 mg/dL (2.5-4.5); Potassium 3.9 mmol/L (3.5-5.1); Sodium 149 mmol/L (136-145); Total Bilirubin 3.1 mg/dL (0.15-1.2); Total Protein 7.3 g/dL (6.6-8.7)
[2021-07-21 05:08] LABS: NT Pro B Type Natriuretic Pept 6223 pg/mL (0-125); Procalcitonin 0.39 ng/mL (0-0.5)
[2021-07-21 05:19] LABS: Slide Review Slide Review Perform
[2021-07-21] MEDS: lactulose oral liq 20 gm/30 mL UDC 10 GM PO ×4 (05:19→23:20)
[2021-07-21 05:22] LABS: Creatine Phosphokinase 47 U/L (39-308)
[2021-07-21 06:08] LABS: ABG PCO2 29.8 mmHg (35-45); Arterial Blood Gas Hematocrit 37.4 % (42-52); Base Excess ABG 0.7 mmol/L (-2.0-2.0); Blood Gas Allen Test Pos; Blood Gas Sample Site Radial, right; Blood Gas Sample Type Arterial; HCO3 ABG 23.2 mmol/L (22-26); Oxygen Device VENT; PO2 ABG 73.5 mmHg (80.0-100.0)
--- NOTE | 2021-07-21 07:00 | XRR_ITS ---
PROCEDURE INFORMATION: Exam: XR Chest Exam date and time: 07/21/2021 7:00 AM Age: 66 years old Clinical indication: Shortness of breath; Prior surgery; Additional info: SOB TECHNIQUE: Imaging protocol: XR of the chest. Views: 1 view. COMPARISON: CR (CHEST, ) 07/20/2021 1:11 PM FINDINGS: Tubes, catheters and devices: Endotracheal tube is in satisfactory position. Feeding tube is in satisfactory position. Right IJ approach central line is in satisfactory position, with distal tip at the level of the SVC/RA junction. Lungs: Persistent bilateral airspace opacities. No large pleural effusion or pneumothorax. Pleural spaces: See Lungs finding. Heart/Mediastinum: Stable cardiomediastinal silhouette. Bones/joints: No acute osseous injury identified. Degenerative changes of the spine seen. XR/XR chest 1V portable [id number] IMPRESSION: Persistent bilateral airspace opacities.
[2021-07-21] MEDS: pantoprazole 40 mg SDV IVP (08:18)
[2021-07-21] MEDS: folic acid 1 mg Tablet PO (08:19)
[2021-07-21] MEDS: multivitamin therapeutic Tablet 1 TAB PO (08:19)
[2021-07-21] MEDS: aspirin 81 mg EC Tablet PO (08:19)
--- NOTE | 2021-07-21 08:24 | XR_ITS ---
WS: [id number] XR KUB portable [id number] REASON FOR EXAM: follow up FINDINGS: Nasogastric tube overlies the fundus of the stomach. Mild gaseous distention of the stomach. Remainder the bowel gas pattern is unremarkable. No free air or retroperitoneal air. No significant abdominal or pelvic calcification. Degenerative spondylosis in the lumbar spine. XR/XR KUB portable [id number] IMPRESSION: Nasogastric tube position as above. No acute abdominal abnormality.
--- NOTE | 2021-07-21 08:46 | PC.NUTR ---
TF consult received. When medically appropriate to resume TF, recommend Pulmicare 1.5 starting @ 15 mls/hr, increasing 10mls Q8H as tolerated, to a goal rate of 45 mls/hr with flushes of 150 mls Q4H. Details in RD assessment.
[2021-07-21 10:06] LABS: ABG PCO2 32.7 mmHg (35-45); ABG PH Result 7.46 (7.35-7.45); Alveolar-Arterial Oxygen Gradi 39.8 mmHg (5-10); Arterial Blood Gas Hematocrit 39.5 % (42-52); Base Excess ABG -0.1 mmol/L (-2.0-2.0); Blood Gas Operator Identificat GD; Blood Gas Sample Site Brachial, right; Blood Gas Sample Type Arterial; Carboxyhemoglobin 0.7 %THgb (0.4-20.1); HCO3 ABG 23.2 mmol/L (22-26); HGB O2 Sat 94.9 % (95-100); Ionized Calcium Level - ABG 1.1 mmol/L (1.1-1.4); Methemoglobin 0.9 % (0.4-1.5); Oxygen Device VENT; Oxygen Saturation ABG 96.5; PO2 ABG 81.8 mmHg (80.0-100.0); Potassium Level - ABG 3.9 mmol/L (3.5-5.0); Total Hemoglobin 12.9 g/dL (14-18)
[2021-07-21] MEDS: sodium chloride 0.9% 1,000 ML 50 ML IV (10:47)
--- NOTE | 2021-07-21 10:47 | PC.CHAP ---
Pastoral Care Encounter/Spiritual Assessment Type of Contact [] Declined sql programmer visit [] Patient/Family/Request visit [] Outpatient visit [] Follow-up visit [] Physician referral [] Code/Alert [x] Routine visit [] Staff referral [] Actively dying [] Patient sleeping [] Family support [] [] Out of room [] Palliative care [] [] Receiving care in room [] Pre-surgical visit [] Trauma [] Long length of stay [x] ICU visit [x] Other: vent Relational/Emotional Strength [] Patient feels connected with others/family/visitors/staff [] Distress [] Loneliness/isolation [] Abandonment Spirituality of Patient [] Person of Merly [] Attends Hoahaoism of their Merly [] Believes in Prayer [] Reads Bible or Yazidi materials [] There are Spiritual issues to be addressed 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 Interventions [x] Prayer [] Active listening [] Non-anxious presence [] Spiritual/emotional support [] Crisis/trauma care [] Spiritual counseling [] Bereavement support [] Provided bereavement packet [] Provided Bible/devotional materials [] Provided toy/stuffed animal, coloring book to patient or family member [] Provided Communion [] Anointing/[place] [] Salvation [x] Completed spiritual assessment [] Other: Impact on Illness or Injury [] Angry [] Fearful [] Anxious [] Often cries [] Exhaustion [] Unable to work [] Unable to attend buddhism [] Unable to walk/stand [] Unable to read [] Unable to drive [] Unable to eat/drink [] Unable to sleep [] Unable to be with family [] Patient intubated [] Other: Summary Time spent with patient
[2021-07-21 10:59] LABS: INR 2.02 (0.8-1.2)
[2021-07-21 11:00] LABS: Partial Thromboplastin Time 37.4 SECONDS (23.9-36.7)
[2021-07-21 11:05] LABS: Fibrinogen 237 mg/dL (174-498)
--- NOTE | 2021-07-21 11:17 | P.PN_ITS ---
Subjective Subjective: Yesterday due to worsening respiratory status, increased encephalopathy, requiring 100% FiO2, patient was intubated, placed on mechanical ventilation, had a bedside bronchoscopy by Dr. Arnett Patient was seen this morning, remains intubated, sedated on 60% FiO2, afebrile overnight, normotensive, no pressors, continues to have copious secretions from endotracheal tube, I saw patient's sister in the waiting room, gave her an update on his clinical status, patient's and patient have had a falling out for the last 2 to 3 weeks, she will be discharged home hospital in [place] for some sort of liver infection or cancer and she will be transferred to [place] according to patient's sister Vitals/I&O/Wt Last Vital Signs Temp 101.9 F H 07/21/21 07:00 Pulse 89 07/21/21 09:15 Resp 18 07/21/21 09:49 BP 120/76 07/21/21 09:15 Pulse Ox 95 07/21/21 09:49 07/20/21 07/21/21 07/21/21 22:59 06:59 14:59 Intake Total 1303.339 / 1307.662 416.963 / 1724.625 160 / 160 Output Total 955 / 1205 525 / 1730 350 / 350 Balance 348.339 / 102.662 -108.037 / -5.375 -190 / -190 Weight last 48 hrs Weight 84.277 kg Weight 80.966 kg Physical Exam Narrative: Currently intubated, sedated on mechanical ventilation Nasogastric tube in place Right internal jugular central line in place Bartlett catheter in place Endotracheal tube in place Const: COMMON NORMALS: no acute distress Resp: COMMON NORMALS: normal respiratory effort, No retractions and No use of accessory muscles AUSCULTATION: rhonchi and wheezes Cardio: COMMON NORMALS: regular rate, regular rhythm, S1 normal heart sound present and S2 normal heart sound present RATE: regular rate RHYTHM: regular rhythm HEART SOUNDS: S1 normal heart sound present and S2 normal heart sound present GI: COMMON NORMALS: Normal to inspection, nondistended, normoactive bowel sounds present, Soft to palpation, non-tender and No hepatosplenomegaly present PALPATION: Yes Soft to palpation and Yes No hepatosplenomegaly present Extremity: COMMON NORMALS: no pedal edema Urinary Catheter Management: Bartlett: Cath Placed During This Visit: yes Reason for Continuing Indwelling Catheter: Accurate Measurement of Urinary Output in Critically Ill Patients Urinary Catheter Date of Insertion: 07/18/21 Urinary Catheter Time of Insertion: 12:24 Data : 07/21/21 04:25 07/21/21 04:25 Micro: Microbiology 07/20/21 14:00 Gram Stain - Final Lung Right Middle Lobe Bronchoalveolar Lavage Culture - Preliminary 07/19/21 12:45 MRSA Culture - Final Nose 07/18/21 15:11 Urine Culture - Final Urine Catheterized A&P Assessment and plan (1) Acute CVA (cerebrovascular accident): -CT of the head Focal area of hypoattenuation measuring 5.0 x 2.7 cm within the left temporal lobe which most resembles a subacute infarct. This can be further evaluated with MRI. -NIH stroke scale difficult to assess as patient has acute encephalopathy, multifactorial from sepsis, shock, hypoxia, COVID-19, alcohol withdrawal -Timeframe of CVA difficult to access, possibly within the last 72 hours, given acute encephalopathy throughout his hospitalization -Does have spontaneous movement of upper and lower extremity, does withdraw from pain, pupils equal round reactive to light -Discussed with telestroke at [facility], advised of conservative intervention, hold off full dose anticoagulation for least 2 weeks due to hemorrhagic conversion risk -Does have history of alcoholism, does have COVID-19 possibly hypercoagulability associate with COVID-19, had episodes of A. fib during his hospitalization -Location of temporal lobe CVA, likely will result in a receptive aphasia, possibly contributing to his acute encephalopathy -Will obtain CTA of the head and neck 1. Irregular area of low density in the left temporal lobe with loss of garcia-white matter differentiation consistent with a subacute infarct. 2. No significant stenosis nor large vessel occlusion. -Repeat CT of the head 1. Similar appearing subacute infarct in the left temporal region 2. Mild presumed small vessel ischemic disease of indeterminate age. 3. No acute intracranial hemorrhage. -Continue aspirin, statin -Allow for permissive hypertension -Neurochecks, aspiration precautions, NIH stroke scale Status: Acute (2) Sepsis: -Secondary to pneumonia, COVID-19 pneumonia, acute respiratory failure chest x- ray showing right upper lobe infiltrate, likely aspiration event -Primaxin -Right IJ in place -Continue Levophed maintain map >65 -Avoid fluids due to concerns of fluid overload -Keep negative fluid status -Monitor respiratory status closely Status: Acute (3) Shock: -Sepsis secondary to pneumonia, COVID-19 pneumonia -As above Status: Acute (4) Acute encephalopathy: -Secondary to pneumonia, right upper lobe, COVID-19 pneumonia, left temporal lobe CVA Status: Acute (5) Acute and chronic respiratory failure with hypoxia: -Secondary to right upper lobe pneumonia, COVID-19 pneumonia, aspiration pneumonia, acute CVA -Intubated 07/20/2021 -Currently intubated, sedated -Fentanyl, Versed, Precedex for sedation -pH 7.47, PCO2 32.7, bicarb 23.2, PO2 81.8, 60% FiO2, tidal volume 400, PEEP of 10 -Protonix for GI prophylaxis -Lovenox for DVT prophylaxis -Monitor respiratory status closely -Diuresis as needed -Primaxin for antibiotic coverage -Completed remdesivir -Decadron -Daily spontaneous breathing trials Status: Acute (6) Alcohol withdrawal: -CIWA score Status: Acute (7) Atrial fibrillation with RVR: -Started on a Cardizem drip, converted to normal sinus rhythm, currently hold off on anticoagulation given acute CVA, no rhythm control required -Cardizem drip as needed -Maintain magnesium greater than 2, potassium greater than 4 -Anticoagulation relatively contraindicated given history of thrombocytopenia, alcoholism, risk of bleeding, left temporal lobe CVA due to risk of hemorrhagic transformation -We will decide to resume anticoagulation in 2 weeks based on clinical progress -Cardiac echocardiogram, no radiographic evidence of thrombus seen LV systolic function is normal with EF of 55 to 60%. ?Mild mitral annular calcification. ?Trace tricuspid regurgitation. ?No comparison studies are available Status: Acute (8) Acute hepatitis C: Status: Acute (9) COVID: Remdisivir 200mg iv x 1 followed by 100mg iv daily dexamethasone 6mg IVP daily duoneb q6h, budesonide q12h Continue Zosyn Flutter valve/spirometer at bedside trend inflammatory markers including CRP, D dimer CTA negative for PE, gross consolidation Status: Acute (10) Dehydration: related to COVID and GI losses Status: Acute (11) EDGARD (acute kidney injury): Cr 1.5, baseline not known at this time Continue to monitor Continue to monitor Status: Acute (12) Liver cirrhosis: incidentally discovered on CTA chest Elevted T .bili, elevated INR, thrombocytopenia H/o alcohol consumption+, hepatitis C positive Viral load ordered, HIV ordered Status: Acute (13) Thrombocytopenia: May be related to acute viral illness vs chronic liver disease no bleeding currently Monitor for now Status: Acute (14) Hypoxia: related to covid 19, possible fluid overload after IVF resuscitation Lasix as above CTA negative for PE, pneumothorax, consolidation Status: Acute (15) Hepatic encephalopathy: Ammonia level improving continue to monitor Rifaximin Lactulose 10gm po q4h, titrate to 3-4 BM per day Status: Acute (16) Hypotension: Status: Acute Plan alcohol withdrawal, CIWA Hypernatremia, serum sodium 149 start IV fluids, gentle Elevated INR secondary to liver failure, check DIC panel Creatinine up to 1.6, start IV fluids Attestations Medical Necessity Statement*: Patient requires hospitalization, acute hypoxic respiratory failure sec to COVID-19, secondary bacterial pneumonia, aspiration pneumonia, COVID-19 pneumonia, CVA, acute liver failure Critical Care Time: 35 Coding Level of Care Code 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
[2021-07-21] MEDS: dexmedeTOMIDine 0.9 % NaCL 400 MCG/100 ML PREMIX 19.91 MCG IV (13:17)
--- NOTE | 2021-07-21 13:18 | PC.NURSE ---
Mottling was noted to lower extremities extending from feet to upper thighs. Extremities are warm and pulses were palpated. Dr. Rosenberg
--- NOTE | 2021-07-21 13:22 | US_ITS ---
WS: [id number] Anterior abdominal wall ultrasound, 07/21/2021 Clinical Data: us umbilicus, motilliting, hernia, Comparison: None. Findings: There is an ventral hernia which is filled with fat. No bowel is seen. This hernia superior to the um bilicus. The hernia measures 1.84 x 4.06 cm x 4.16 cm with an abdominal wall opening of 1.01 cm. US/US abdomen limited [id number] Impression: Ventral hernia, fat filled.
--- NOTE | 2021-07-21 17:00 | PC.NURSE ---
Pedal Pulses found with doppler.
[2021-07-21] MEDS: remdesivir 100 MG in sodium chloride 0.9% (100 ml) 100 ML IV (17:41)
[2021-07-21] MEDS: enoxaparin 40 mg/0.4 mL Syringe SUBCUT (17:41)
[2021-07-21] MEDS: acetaminophen 325 mg Tablet 650 MG PO (18:00)
--- NOTE | 2021-07-21 18:25 | PC.NURSE ---
Pt had fever of 103.0. PRN Tylenol was given.
[2021-07-21] MEDS: dexmedeTOMIDine 0.9 % NaCL 400 MCG/100 ML PREMIX 15.49 MCG IV (19:17)
[2021-07-21] MEDS: dexamethasone 4 mg/mL INJ 6 MG IVP (19:18)
--- NOTE | 2021-07-21 20:50 | PC.NURSE ---
Addendum entered by Karol Meyer RN 07/21/21 20:51: 100 ml per hour flush to NG tube. Original Note: Pt mottled up to his groin. Pupils appear fixed. No gag reflex present during oral care. Unable to dopple dorsalis pedis pulses.
--- NOTE | 2021-07-21 21:23 | PC.NURSE ---
Pt grimaces to pain. IV medications placed in ice tub for cooling. Ice added to flush bag to aide with cooling.
--- NOTE | 2021-07-21 21:27 | P.PN_ITS ---
Subjective Subjective: - Yesterday morning he was requiring 45 L 65% but after coming from CTA head - pt became increasingly agitated and required 100% - he was intubated for respiratory failure -post intubation bronchoscopy showed copious clear secretions and yellowsih aspiration secretions -overnight started spiking fevers - pt on vancomycin/imipenam; MRSA negative - vancomycin discontinued -Sent for blood cultures and DIC panel -pt off pressors - overbreathing vent - on fentanyl 25 mcg/hr and precedex 0.7 mcg/hr -Other labs and imaging reviewed Vitals/I&O/Wt Last Vital Signs Temp 102.4 F H 07/21/21 21:00 Pulse 89 07/21/21 20:36 Resp 19 H 07/21/21 20:38 BP 126/82 07/21/21 16:30 Pulse Ox 89 L 07/21/21 20:38 07/21/21 07/21/21 07/21/21 06:59 14:59 22:59 Intake Total 416.963 / 1724.625 539.233 / 539.233 609.375 / 1148.608 Output Total 525 / 1730 350 / 350 550 / 900 Balance -108.037 / -5.375 189.233 / 189.233 59.375 / 248.608 Weight last 48 hrs Weight 185 lb 12.8 oz Weight 178 lb 8 oz Physical Exam Narrative: PHYSICAL EXAM: General: lying in bed, sedated HEENT:NCAT, Pin point pupils bilaterally, EOMI Neck: Supple Lungs: improved coarse sounds bilaterally Heart: s1/s2, RRR Abd: soft, NT, ND, BS + Normoactive Extremities: No edema SURVEY SUPERVISOR: sedated and sensory remains intact and moves all limbs tactile stimuli SKIN: no rash LDA: # CVC: Right IJ 07/19/2021 Urinary Catheter Management: Bartlett: Cath Placed During This Visit: yes Reason for Continuing Indwelling Catheter: Accurate Measurement of Urinary Output in Critically Ill Patients Urinary Catheter Date of Insertion: 07/18/21 Urinary Catheter Time of Insertion: 12:24 Data : 07/21/21 04:25 07/21/21 04:25 Other Labs: Radiology Impressions Chest CTA 07/17/21 18:35 IMPRESSION: 1. No evidence for pulmonary embolus. Evaluation of the smaller arteries is limited by significant breathing motion artifact. 2. No acute pulmonary finding. 3. Liver cirrhosis with portal venous hypertension. 4. Splenomegaly. Liver Ultrasound 07/18/21 11:48 IMPRESSION: 1. Technically very limited evaluation of the RIGHT upper quadrant due to lack of cooperation and short of breath. 2. Moderate hepatomegaly with changes of cirrhosis. Unable to evaluate the portal vein for reversal of flow. 3. Small amount of gallbladder sludge with no stones identified. Head CT 07/20/21 08:55 IMPRESSION: 1. Similar appearing subacute infarct in the left temporal region 2. Mild presumed small vessel ischemic disease of indeterminate age. 3. No acute intracranial hemorrhage. Head/Neck CTA 07/20/21 08:55 IMPRESSION: 1. Irregular area of low density in the left temporal lobe with loss of garcia-white matter differentiation consistent with a subacute infarct. 2. No significant stenosis nor large vessel occlusion. IMPRESSION: No hemodynamically significant stenosis or occlusion. REFERENCES: NASCET CRITERIA. The degree of internal carotid artery stenosis is based on NASCET criteria. Normal is no stenosis. Mild is less than 50% stenosis. Moderate is 50-69% stenosis. Severe is 70% to 99% stenosis. Total occlusion is no detectable patent lumen. Carotid Doppler Study 07/20/21 18:20 IMPRESSION: 1. Suboptimal examination due to poor patient positioning and inability to cooperate. 2. No definite arterial stenosis involving the visualized carotid arteries. 3. A large bandage over the right neck obscures evaluation of the left mid and distal internal carotid artery. 4. No definite flow is seen in the left vertebral artery. This could be due to poor patient positioning or arterial occlusion. 5. All of the waveforms (both internal carotid and common carotid) show high resistance flow. 6. Heterogeneous atherosclerotic plaque in the carotid bulb. 7. Consider CTA to further assess. REFERENCES: SRU CRITERIA. The degree of internal carotid artery stenosis is based on criteria defined by the Society of Radiologists in Ultrasound (SRU). Normal is no stenosis. Mild is less than 50% stenosis. Moderate is 50-69% stenosis. Severe is greater than 69% stenosis to near occlusion. Near occlusion is a markedly narrowed lumen. Total occlusion is no detectable patent lumen. ADDENDUM: 07/20/[address] Estrada at 07/20/2021 8:47 AM CDT. Chest X-Ray 07/21/21 07:00 IMPRESSION: Persistent bilateral airspace opacities. KUB X-Ray 07/21/21 08:24 IMPRESSION: Nasogastric tube position as above. No acute abdominal abnormality. Abdomen Ultrasound 07/21/21 13:22 Impression: Ventral hernia, fat filled. Laboratory Results WBC 3.1 10^3/uL (4.0-10.0) L 07/21/21 04:25 RBC 3.53 10^6/uL (4.1-5.3) L 07/21/21 04:25 Hgb 11.8 g/dL (11.7-16.6) 07/21/21 04:25 Hct 35.1 % (42.0-52.0) L 07/21/21 04:25 MCV 99.4 fl (80-94) H 07/21/21 04:25 MCH 33.4 pg (28.0-34.0) 07/21/21 04:25 MCHC 33.6 g/dL (30.0-36.0) 07/21/21 04:25 RDW 18.0 % (12.1-15.1) H 07/21/21 04:25 Plt Count 68 10^3/cmm (130-400) L 07/21/21 04:25 MPV 11.6 fL (7.4-10.4) H 07/21/21 04:25 Neut % (Auto) 82.5 % 07/21/21 04:25 Lymph % (Auto) 8.1 % 07/21/21 04:25 Terrell % (Auto) 7.8 % 07/21/21 04:25 Eos % (Auto) 0.0 % 07/21/21 04:25 Baso % (Auto) 0.3 % 07/21/21 04:25 Neut # (Auto) 2.55 10^3/uL (1.8-7.7) 07/21/21 04:25 Lymph # (Auto) 0.3 10^3/uL (0.8-4.8) L 07/21/21 04:25 Terrell # (Auto) 0.2 10^3/uL (0.2-0.9) 07/21/21 04:25 Eos # (Auto) 0.0 10^3/uL (0.0-0.8) 07/21/21 04:25 Baso # (Auto) 0.0 10^3/uL (0.0-0.1) 07/21/21 04:25 Nucleated RBC % (auto) 0 % 07/21/21 04:25 Nucleated RBCs # 0.0 /100WBC 07/21/21 04:25 PT 23.30 SECONDS (12.1-14.9) H 07/21/21 10:27 INR 2.02 (0.8-1.2) H 07/21/21 10:27 APTT 37.4 SECONDS (23.9-36.7) H 07/21/21 10:27 Fibrinogen 237 mg/dL (174-498) 07/21/21 10:27 D-Dimer 5.10 ug/mIFEU (0-0.59) H 07/21/21 10:27 Specimen Type Arterial 07/21/21 09:52 Sample Site Brachial, right 07/21/21 09:52 ABG pH 7.46 (7.35-7.45) H 07/21/21 09:52 ABG pCO2 32.7 mmHg (35-45) L 07/21/21 09:52 ABG pO2 81.8 mmHg (80.0-100.0) 07/21/21 09:52 ABG HCO3 23.2 mmol/L (22-26) 07/21/21 09:52 ABG O2 Saturation 96.5 07/21/21 09:52 ABG Base Excess -0.1 mmol/L (-2.0-2.0) 07/21/21 09:52 Deejay Test N/a 07/21/21 09:52 A-a O2 Gradient 39.8 mmHg (5-10) H 07/21/21 09:52 Hematocrit 39.5 % (42-52) L 07/21/21 09:52 Hgb O2 Saturation 94.9 % (95-100) L 07/21/21 09:52 Carboxyhemoglobin 0.7 %THgb (0.4-20.1) 07/21/21 09:52 Methemoglobin 0.9 % (0.4-1.5) 07/21/21 09:52 Total Hemoglobin 12.9 g/dL (14-18) L 07/21/21 09:52 Sodium 152.0 mmol/L (131-143) H 07/21/21 09:52 Potassium 3.9 mmol/L (3.5-5.0) 07/21/21 09:52 Glucose 147.0 mg/dL (70-115) H 07/21/21 09:52 Ionized Calcium 1.1 mmol/L (1.1-1.4) 07/21/21 09:52 O2 Delivery Device Vent 07/21/21 09:52 O2 Liters/Min 50.0 % 07/20/21 04:00 FiO2 60.0 % 07/21/21 09:52 Tidal Volume 0.40 07/21/21 09:52 PEEP 10.0 cmH20 07/21/21 09:52 Principal Product Manager ID Gd 07/21/21 09:52 Sodium 149 mmol/L (136-145) H 07/21/21 04:25 Potassium 3.9 mmol/L (3.5-5.1) 07/21/21 04:25 Chloride 113 mmol/L (98-107) H 07/21/21 04:25 Carbon Dioxide 23 mmol/L (22-29) 07/21/21 04:25 Anion Gap 16.9 (5-19) 07/21/21 04:25 BUN 55 mg/dL (8-23) H 07/21/21 04:25 Creatinine 1.6 mg/dL (0.7-1.2) H 07/21/21 04:25 GFR Calculation 43.7 mL/min (90-130) L 07/21/21 04:25 Glucose 161 mg/dL (65-115) H 07/21/21 04:25 POC Glucose 138 mg/dL (70-110) H 07/20/21 18:37 Calculated Osmolality 327 mOsm/kg (285-295) H 07/21/21 04:25 Lactate 2.0 mmol/L (0.5-2.2) 07/21/21 04:25 Calcium 7.9 mg/dL (8.5-10.5) L 07/21/21 04:25 Phosphorus 4.6 mg/dL (2.5-4.5) H 07/21/21 04:25 Magnesium 2.5 mg/dL (1.7-2.3) H 07/21/21 04:25 Total Bilirubin 3.1 mg/dL (0.15-1.2) H 07/21/21 04:25 AST 30 U/L (0-40) 07/21/21 04:25 ALT 18 U/L (0-41) 07/21/21 04:25 Alkaline Phosphatase 40 IU/L (40-130) 07/21/21 04:25 Ammonia 60 umol/L (16-60) 07/21/21 04:25 Creatine Kinase 47 U/L (39-308) 07/21/21 04:25 C-Reactive Protein 23.4 mg/L (0.0-4.9) H 07/21/21 04:25 NT-Pro-B Natriuret Pep 6223 pg/mL (0-125) H 07/21/21 04:25 Total Protein 7.3 g/dL (6.6-8.7) 07/21/21 04:25 Albumin 3.9 g/dL (3.5-5.2) 07/21/21 04:25 Globulin 3.4 g/dL (1.3-4.6) 07/21/21 04:25 Procalcitonin 0.39 ng/mL (0-0.5) 07/21/21 04:25 TSH 1.47 uIU/mL (0.27-4.20) 07/18/21 03:20 Urine Color Yellow (Yellow) 07/18/21 15:11 Urine Appearance Clear (CLEAR) 07/18/21 15:11 Urine pH 5 (5-7) 07/18/21 15:11 Ur Specific [place] 1.010 (1.005-1.030) 07/18/21 15:11 Urine Protein Trace (Negative) 07/18/21 15:11 Urine Glucose (UA) Norm (Normal) 07/18/21 15:11 Urine Ketones Negative (Negative) 07/18/21 15:11 Urine Blood 3+ (Negative) H 07/18/21 15:11 Urine Nitrate Negative (Negative) 07/18/21 15:11 Urine Bilirubin Neg (Negative) 07/18/21 15:11 Urine Urobilinogen Neg mg/dL (Negative) 07/18/21 15:11 Ur Leukocyte Esterase Negative (Negative) 07/18/21 15:11 Urine RBC 10-15 /hpf (0-2) H 07/18/21 15:11 Urine WBC 10-15 /hpf (0-5) H 07/18/21 15:11 Ur Squamous Epith Cells 0-4 /hpf (0-5) H 07/18/21 15:11 Amorphous Sediment Not Reportable 07/18/21 15:11 Urine Bacteria Trace /hpf (NONE) 07/18/21 15:11 Bronch Specimen Source Right and left lobes 07/20/21 14:00 Bronchial Fluid Color Yellow 07/20/21 14:00 Bronchial Fluid Appearance Hazy (CLEAR) 07/20/21 14:00 Bronchial Fluid WBC 420 /uL 07/20/21 14:00 Bronchial Fluid RBC 180 10^3/uL 07/20/21 14:00 Bronch Cells Counted 300 07/20/21 14:00 Bronchial Neutrophils 8.00 % (0.9-2.3) H 07/20/21 14:00 Bronchial Lymphocytes 0.00 % (10.71-12.91) L 07/20/21 14:00 Bronchial Eosinophils 0.00 % (0.13-0.25) L 07/20/21 14:00 Bronchial Macrophages 92.00 % (83.6-86.8) H 07/20/21 14:00 Bronchial Diff Comment Yes 07/20/21 14:00 Ethyl Alcohol < 10 mg/dL (0-10) 07/17/21 15:42 Hepatitis A IgM Ab Non-reactive (Nonreactive) 07/18/21 03:20 Hep Bs Antigen Non-reactive (Nonreactive) 07/18/21 03:20 Hep Bs Antibody 3.5 (11.5-1000) L 07/18/21 03:20 Hep B Core Total Ab Non-reactive (Nonreactive) 07/18/21 03:20 Hepatitis C Antibody Reactive (Nonreactive) H 07/18/21 03:20 HCV RNA (PCR) IUs/ml 5.87 Log IU/mL (NOT DETECTED) H 07/18/21 04:29 HCV RNA (PCR) IU log10 [id number] IU/mL (NOT DETECTED) H 07/18/21 04:29 HIV 1&2 Ab & HIV 1 Ag Non-reactive (Non-Reactiv) 07/18/21 03:20 HIV 1&2 Antibody Non-reactive (Non-Reactiv) 07/18/21 03:20 Micro: Microbiology 07/20/21 14:00 Gram Stain - Final Lung Right Middle Lobe Bronchoalveolar Lavage Culture - Preliminary A&P Assessment and plan (1) Acute and chronic respiratory failure with hypoxia: Status: Acute (2) Alcohol withdrawal: Status: Acute (3) Acute encephalopathy: Status: Acute (4) Shock: Status: Acute (5) Acute hepatitis C: Status: Acute (6) Hepatic encephalopathy: Status: Acute (7) Thrombocytopenia: Status: Acute (8) Liver cirrhosis: Status: Acute (9) COVID: Status: Acute (10) Hypokalemia: Status: Acute Plan #Altered mental status-subacute left temporal lobe CVA /on admission hepatic encephalopathy in pt with alcoholic cirrhosis and h/o alcoholism and hepatitis C - likely in delirium tremens/?? Covid vasculitis - today morning received ativan 2mg during my exam and he was seen sleeping ; vitals stable - admission ammonia 70 - on lactulose - target 2-3 soft bm/day; today ammonia 30 - Rifaximin 550 mg PO BID - On CIWA protocol - Ativan 1 mg every 4 hours as needed prn - monitor electrolytes K, mg and supplement accordingly -MVT/FA/Thiamine -CT head showed focal area of hyper attenuation measuring 5 x 2.7 cm within the left temporal lobe resembling subacute infarct -Tube feeding at 10 to 15 cc-aspiration precautions -Taper off Precedex and perform.Neurochecks every 2 hours -Recommended bedside physical therapy -Aspirin, statin -Maintain MAP close to 70 -Avoid hypotonic fluids -Neurology consult # Acute hypoxic respiratory failure - covid 19 and possible aspiration - CT 07/18/21: no evidence of PE; Emphysematous changes - - Intubated 07/20/21: on MMV requring 60% FIO2 - Increase fenatnyl 50 mcg/hr and versed 1 mg/hr for alcohol withdrawal - will repeat CT head in the am - if no worsening of stroke - we will taper off sedation and awaken the pt - COVID positive on 07/12/21 - On dexamethasone and Remedesivir - Duoneb q 6 hr nebs scheduled - so far bacterial antigens, legionella antigen are negative; MRSA PCR negative - dced vancomycin - currently on imipenam for aspiration pneumonia and worsening hypoxia - Continue aspiraiton precautions - Hold Tube feeding due to copious gastric secretions - Closely monitor saturations #Shock - hypovolemic vs sepsis - resolved -Echo on admission - reported normal LV EF -off pressors - procal 1.33 ; on zosyn #Hypokalemia 2.8 likely secondary to Lasix - resolved -Receiving KCl 40 M EQ and scheduled for second dose # Thrombocytopenia - due to underlying Hepatitis C/alcoholism /sepsis - Send DIC panel - monitor platelets for now # Persistent Fevers - Central cause due to stroke vs sepsis from aspiration - so far cultures negative - we will repeat Blood cutlures ; BAL cultures pending - currently on imipenam for broad coverage and aspiration; dced vancomycin as MRSA negative Recommendations conveyed to hospitalist/RN/RT Updated over phone- she is admitted at some other hospital Attestations Medical Necessity Statement*: Patient requires hospitalization for alcohol withdrawal, acute encephalopathy, COVID-19 pneumonia, acute acute hypoxic respiratory failure, EDGARD, liver cirrhosis, thrombocytopenia, sepsis, shock Time Spent in Patient Care: Greater than 35 minutes (>than 50% of time spent in counselling and/or direct pt care on unit) . Critical Care Time: The high probability of a clinically significant, sudden or life threatening deterioration of the patient's [neurology, pulmonary, renal] system(s) required my full and direct attention, intervention and personal management. The critical care time is as shown. 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
[2021-07-21] MEDS: atorvastatin 40 mg Tablet PO (21:30)
[2021-07-22] VITALS (71 sets, daily range): BP systolic 79–162; BP diastolic 56–102; PULSE 79–138; RESP 12–27; TEMP 36.7–38.6; O2SAT 85–98
[2021-07-22] MEDS: dexmedeTOMIDine 0.9 % NaCL 400 MCG/100 ML PREMIX 15.49 MCG IV ×4 (01:14→20:57)
--- NOTE | 2021-07-22 02:15 | PC.NURSE ---
Addendum entered by Karol Meyer RN 07/22/21 02:33: Large amount of thick, brownish pink secretions suctioned from pt's mouth. Original Note: Pt bathed, no effort against gravity noted in extremities. Pt does not have gag or cough reflex. Corneal reflex present. Pt does facial grimace occasionally. Mottling remains the same, and is not present on buttocks or back.
--- NOTE | 2021-07-22 02:39 | PC.NURSE ---
Saline placed in bilateral eyes for extreme dryness. Blink reflex now absent. Pt is belly breathing, with rates in the upper 20's. He has increased oxygen demand, with FI02 now at 75% with no improvement in saturation. Tube placement is 25 cm at the lip.
[2021-07-22] MEDS: ipratropium-albuterol 3 mL Neb INHALATION ×4 (02:40→20:27)
--- NOTE | 2021-07-22 02:49 | CTR_ITS ---
PROCEDURE INFORMATION: Exam: CT Head Without Contrast Exam date and time: 07/22/2021 2:49 AM Age: 66 years old Clinical indication: Altered mental status/memory loss; Additional info: AMS TECHNIQUE: Imaging protocol: Computed tomography of the head without contrast. Radiation optimization: All CT scans at this facility use at least one of these dose optimization techniques: automated exposure control; mA and/or kV adjustment per patient size (includes targeted exams where dose is matched to clinical indication); or iterative reconstruction. COMPARISON: CT head wo con* [id number] 07/20/2021 11:20 AM RADIATION DOSE METRICS: Total DLP (mGy-cm): 965.09 FINDINGS: Brain: There has been continued evolution and delineation of the infarct seen in the left temporal lobe. No evidence of hemorrhagic conversion. There is effacement of regional sulci. No other significant mass effect or midline shift. Age appropriate atrophy and small vessel ischemic change. Cerebral ventricles: No ventriculomegaly. Paranasal sinuses: Mucosal thickening in the ethmoid, sphenoid and maxillary sinuses. Mastoid air cells: There is fluid in the left mastoid air cells. Orbital cavities: The patient has had bilateral lens replacement surgery. Bones/joints: Unremarkable. No acute fracture. Soft tissues: Unremarkable. CT/CT head wo con* [id number] IMPRESSION: Stable left MCA distribution infarct. Mild left mastoid effusion.
[2021-07-22 03:48] LABS: ABG PCO2 41.1 mmHg (35-45); ABG PH Result 7.35 (7.35-7.45); Base Excess ABG -2.9 mmol/L (-2.0-2.0); HCO3 ABG 22.6 mmol/L (22-26); Oxygen Device vent
[2021-07-22 03:49] LABS: Arterial Blood Gas Hematocrit 37.4 % (42-52)
--- NOTE | 2021-07-22 03:51 | PC.NURSE ---
Datar notified of pt's condition, vital signs, orders. No new orders at this time.
[2021-07-22] MEDS: midodrine 5 mg TABLET 10 MG PO ×4 (03:57→20:58)
--- NOTE | 2021-07-22 04:21 | PC.NURSE ---
Addendum entered by Karol Meyer RN 07/22/21 04:23: At approximately 0315... Original Note: Pt taken to CT, oxygen saturations remained 86-91% while being bagged.
--- NOTE | 2021-07-22 04:28 | PC.NURSE ---
Blink, gag, and cough reflexes not present. Pt had large amount of rust colored secretions suctioned from ETT upon return from CT, but now has scant brown secretions present. Pt's lung sounds coarse, but improved from previous assessments. Breathing appears less labored, with improved vital signs.
[2021-07-22 04:51] LABS: Basophils % 0.4 %; Hematocrit 35.1 % (42.0-52.0); Hemoglobin 11.3 g/dL (11.7-16.6); Lymphocytes # 0.2 10^3/uL (0.8-4.8); Lymphocytes % 8.1 %; Mean Corpuscular HGB Conc 32.2 g/dL (30.0-36.0); Mean Corpuscular Hemoglobin 33.2 pg (28.0-34.0); Mean Corpuscular Volume 103.2 fl (80-94); Mean Platelet Volume 11.4 fL (7.4-10.4); Monocytes # 0.2 10^3/uL (0.2-0.9); Neutrophils # 2.38 10^3/uL (1.8-7.7); Neutrophils % 83.4 %; Nucleated Red Blood Cells % 0 %; Platelet Count 64 10^3/cmm (130-400); Red Cell Distribution Width 18.6 % (12.1-15.1); White Blood Count 2.9 10^3/uL (4.0-10.0)
[2021-07-22] MEDS: FUROsemide 10 mg/mL SDV 10mL 60 MG IVP (05:04)
[2021-07-22] MEDS: lactulose oral liq 20 gm/30 mL UDC 10 GM PO ×3 (05:05→16:55)
--- NOTE | 2021-07-22 05:06 | PC.NURSE ---
Tube flushes stopped at this time due to change in pt condition.
[2021-07-22 05:10] LABS: Alanine Aminotransferase 14 U/L (0-41); Albumin Level 4.1 g/dL (3.5-5.2); Alkaline Phosphatase 30 IU/L (40-130); Aspartate Amino Transferase 36 U/L (0-40); Blood Urea Nitrogen 67 mg/dL (8-23); C Reactive Protein 14.2 mg/L (0.0-4.9); Calcium 7.5 mg/dL (8.5-10.5); Carbon Dioxide 19 mmol/L (22-29); Chloride 118 mmol/L (98-107); Globulin 2.8 g/dL (1.3-4.6); Glomerular Filtration Rate 40.8 mL/min (90-130); Glucose 164 mg/dL (65-115); Magnesium 2.9 mg/dL (1.7-2.3); Osmolality Calculated 335 mOsm/kg (285-295); Phosphorus 6.5 mg/dL (2.5-4.5); Sodium 151 mmol/L (136-145); Total Protein 6.9 g/dL (6.6-8.7)
[2021-07-22 05:11] LABS: Lactate (Lactic Acid level) 1.3 mmol/L (0.5-2.2)
[2021-07-22 05:40] LABS: Slide Review Slide Review Perform
[2021-07-22 05:46] LABS: NT Pro B Type Natriuretic Pept 8893 pg/mL (0-125); Procalcitonin 0.26 ng/mL (0-0.5)
[2021-07-22 05:56] LABS: Creatine Phosphokinase 259 U/L (39-308)
--- NOTE | 2021-07-22 06:17 | PC.NURSE ---
Distal line of central line occluded, unable to flush.
--- NOTE | 2021-07-22 07:00 | XRR_ITS ---
PROCEDURE INFORMATION: Exam: XR Chest Exam date and time: 07/22/2021 7:00 AM Age: 66 years old Clinical indication: Shortness of breath; Additional info: SOB TECHNIQUE: Imaging protocol: XR of the chest. Views: 1 view. COMPARISON: CR (CHEST, ) 07/21/2021 5:24 AM FINDINGS: Tubes, catheters and devices: Support lines and tubes are unchanged. Lungs: There has been an increase in consolidation throughout both lungs as well as superimposed pulmonary edema consistent with probable ARDS. Pleural spaces: Unremarkable. No pleural effusion. No pneumothorax. Heart/Mediastinum: Unremarkable. No cardiomegaly. Bones/joints: There is severe degenerative change throughout the spine. XR/XR chest 1V portable [id number] IMPRESSION: Interval worsening of previously seen consolidation with superimposed pulmonary edema with probable ARDS.
[2021-07-22] MEDS: FUROsemide 10 mg/mL SDV 4mL 40 MG IVP (07:33)
[2021-07-22 07:40] LABS: LAB Peripheral Smear Sent for Review
[2021-07-22 07:56] LABS: Add Urine Microscopic? NO; Charge for UA Resulting for Rev
[2021-07-22] MEDS: folic acid 1 mg Tablet PO (07:59)
[2021-07-22] MEDS: pantoprazole 40 mg SDV IVP (07:59)
[2021-07-22] MEDS: aspirin 81 mg EC Tablet PO (07:59)
[2021-07-22] MEDS: multivitamin therapeutic Tablet 1 TAB PO (07:59)
[2021-07-22 08:02] LABS: Bilirubin Urine Neg (Negative); Blood Urine Neg (Negative); Glucose Urine UA Norm (Normal); Ketones Urine 1+ (Negative); Leukocyte Esterase Urine Negative (Negative); Nitrate Urine Negative (Negative); Protein Urine Neg (Negative); Specific Gravity, Urine 1.015 (1.005-1.030); Urine Appearance Clear (CLEAR); Urine Color Yellow (Yellow); Urobilinogen Urine Norm (Negative); pH Urine 5 (5-7)
[2021-07-22 13:11] LABS: Reticulocyte % 1.1 % (0.5-2.0)
[2021-07-22 13:24] LABS: Lactate Dehydrogenase 287 U/L (135-225)
--- NOTE | 2021-07-22 13:33 | PC.NURSE ---
HR, bp elevated; O2 sat mid 80's to upper 80's. MD notified. Amio 150mg bolus ordered and 25mcg fentanyl bolus given per orders. PT breathing appears more labored and tachypneic. Pt repositioned.
[2021-07-22] MEDS: enoxaparin 40 mg/0.4 mL Syringe SUBCUT (16:55)
--- NOTE | 2021-07-22 17:22 | P.PN_ITS ---
Subjective Subjective: Patient was examined multiple times throughout the evening yesterday, he had episodes of mottling of bilateral extremities, extending up near the abdomen, some all mottling along umbilicus, has an abdominal wall hernia, reducible, ultrasound does not show any significant incarceration, no fevers, no hemodynamic compromise Overnight, patient was found to have no corneal reflex, no cough reflex, no gag reflex, had a CT scan of the head which showed no new findings, received Keppra load, This morning his Versed drip was stopped, he is managed on fentanyl, Precedex, does have slight pupillary reflex, does not corneal reflex, no cough, no gag, does not withdraw from pain, does not follow commands Patient really is reexamined this afternoon, he is on 50 of fentanyl, having agonal breathing, heart rates in the 140s to 150s, has A. fib appearance, was given 25 mg of fentanyl, fentanyl drip increased to 75, given 150 of amiodarone Reexamined, heart rates in the 110s, normotensive, is now more compliant with the ventilator, O2 sats in the high 90s, urine output 1600 cc I had a family meeting with patient's sister, son, -According to patient's family patient's does not want to be involved in in patient's care, she is currently hospice in [place], she has relinquished her responsibility for decision making to sister and son -I had extensive discussion with patient's family -In terms of his neurologic status, he has had a left temporal lobe CVA, 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 Given that he is on sedating medications this complicates assessing his neurologic functioning. Initially he did not have a cough, no gag, no pupillary reflex, these primitive reflexes can be depressed by significant neurologic injury and/or sedating medications. Our plan is to continue to hold off on Versed, and any other sedating medications. However in order for him to be compliant on the vent we will continue Precedex and fentanyl and her goal in the morning early would be to wean off his sedating medications to assess his neurologic function. We would assess his primitive reflex on a daily basis, and provide better direction in terms of his neurologic recovery from his CVA,. However compounding factors would be hypoxia from Covid, his liver failure and toxins that are produced as a result, hepatic encephalopathy, elevated ammonia levels, alcohol withdrawal. This is certainly a complicated decision, and will reassess on a daily basis. I also advised that we will have neurology come by and see him once he is appropriately off all sedating medications and appropriate neurologic testing can be done, and will also do an EEG. I have roughly told family that within about 2448 hrs. will have a good idea about his neurologic responses, however Versed can take days even weeks to wear out of the system. And as he is in liver failure, it takes longer for Versed to be process, increased risk of toxic metabolites in his bloodstream. Thus giving him time, and assessing his neurologic work-up would be appropriate. We are monitoring for cerebral edema, worsening of CVA, acute intracranial bleed, he did have repeat CT of his head that shows a stable left temporal lobe CVA. -In terms of his CVA, temporal lobe CVAs likely resulting receptive aphasia, does complicate his extubation process, and can result in increased confusion, will monitor this closely -I was clear with the family that there is a possibility that he might not have significant neurologic recovery, there is a possibility that he might require an endotracheal tube, and PEG tube if that were their wishes and patient's wishes -He does have hyponatremia, receiving free water flushes through nasogastric tube, monitoring the levels -In terms of his respiratory status, he has severe COVID-19 pneumonia, aspiration pneumonia, he has completed remdesivir, receiving Decadron, broad- spectrum antibiotic therapy, he did have significant evidence of aspiration of gastric contents and tube feeds on his bronchoscopy which was performed. So far cultures have been unremarkable. In addition initially from deep suctioning we had a lot of aspiration contents that were produced. Currently he is on 90% O2, will optimize his ventilator settings, do spontaneous breathing trials, but what will limit this is his neurologic responses. Her goal is to optimize his ventilator settings, decrease his FiO2 in see if you can extubate him. The concern is that severe COVID-19 infection can result in fibrosis of the lung, there is a possibility that he might require an endotracheal tube, and placement to long-term care facility -We are also keeping an eye on his his kidney function, nephrology is helping -He does have mottling of bilateral lower extremities, no signs of sepsis, but we are worried about the possibility of liver related hematologic abnormalities such as cryoglobulinemia, TTP or ITP, we have ordered test results which might take time we will continue to monitor closely. -In terms of his liver failure, second alcoholism, and hepatitis C, will continue to monitor his liver function, family is asking if he needs a liver biopsy advised that certainly he will require one in the near future, but were waiting on his overall recovery from his neurologic functioning and his lung functioning -I advised family that currently it is a complicated situation, the biggest step is assessing his neurologic functioning, and his overall neurologic recovery and then his lung function, and any complications that arise therein -Patient's family want us to continue all interventions, keep them updated about his overall neurologic functioning Vitals/I&O/Wt Last Vital Signs Temp 98.0 F 07/22/21 12:00 Pulse 115 H 07/22/21 16:30 Resp 22 H 07/22/21 16:37 BP 123/78 07/22/21 16:30 Pulse Ox 97 07/22/21 16:37 07/22/21 07/22/21 07/22/21 06:59 14:59 22:59 Intake Total 1781.441 / 2960.049 716.078 / 716.078 8 / 724.078 Output Total 650 / 1950 Balance 1131.441 / 1010.049 716.078 / 716.078 8 / 724.078 Weight last 48 hrs Weight 80.876 kg Weight 84.277 kg Physical Exam Const: COMMON NORMALS: no acute distress OTHER: Currently intubated, sedated, minimal pupillary reflex, no corneal reflex, no cough, no gag, does not withdraw from pain Lymph: LYMPHATIC: no lymphadenopathy noted Resp: COMMON NORMALS: normal respiratory effort, No retractions, No use of accessory muscles and clear to auscultation bilaterally AUSCULTATION: clear to auscultation bilaterally Cardio: COMMON NORMALS: regular rate, regular rhythm, S1 normal heart sound present and S2 normal heart sound present RATE: regular rate RHYTHM: regular rhythm HEART SOUNDS: S1 normal heart sound present and S2 normal heart sound present GI: COMMON NORMALS: Normal to inspection, nondistended, normoactive bowel sounds present, Soft to palpation, non-tender and No hepatosplenomegaly present PALPATION: Yes Soft to palpation and Yes No hepatosplenomegaly present OTHER: Has umbilical hernia, reducible, slight mottling over it Skin: NARRATIVE SKIN EXAM: Bilateral lower extremities, DP PT pulses present Bilateral extremities, mottling, present all the way up to the mid thigh Urinary Catheter Management: Bartlett: Cath Placed During This Visit: yes Reason for Continuing Indwelling Catheter: Accurate Measurement of Urinary Output in Critically Ill Patients Urinary Catheter Date of Insertion: 07/18/21 Urinary Catheter Time of Insertion: 12:24 Data : 07/22/21 04:13 07/22/21 04:13 Micro: Microbiology 07/20/21 14:00 Fungal Smear - Preliminary Sputum - Endotracheal Wash 07/20/21 14:00 Gram Stain - Final Lung Right Middle Lobe Bronchoalveolar Lavage Culture - Final 07/21/21 21:50 Blood Culture - Preliminary Blood SPECIMEN COLLECTED 07/21/21 21:47 Blood Culture - Preliminary Blood SPECIMEN COLLECTED A&P Assessment and plan (1) Acute CVA (cerebrovascular accident): -CT of the head Focal area of hypoattenuation measuring 5.0 x 2.7 cm within the left temporal lobe which most resembles a subacute infarct. This can be further evaluated with MRI. -NIH stroke scale difficult to assess as patient has acute encephalopathy, multifactorial from sepsis, shock, hypoxia, COVID-19, alcohol withdrawal -Timeframe of CVA difficult to access, possibly within the last 72 hours, given acute encephalopathy throughout his hospitalization -Does have spontaneous movement of upper and lower extremity, does withdraw from pain, pupils equal round reactive to light -Discussed with telestroke at [facility], advised of conservative intervention, hold off full dose anticoagulation for least 2 weeks due to hemorrhagic conversion risk -Does have history of alcoholism, does have COVID-19 possibly hypercoagulability associate with COVID-19, had episodes of A. fib during his hospitalization -Location of temporal lobe CVA, likely will result in a receptive aphasia, possibly contributing to his acute encephalopathy -Will obtain CTA of the head and neck 1. Irregular area of low density in the left temporal lobe with loss of garcia-white matter differentiation consistent with a subacute infarct. 2. No significant stenosis nor large vessel occlusion. -Repeat CT of the head 1. Similar appearing subacute infarct in the left temporal region 2. Mild presumed small vessel ischemic disease of indeterminate age. 3. No acute intracranial hemorrhage. -Repeat CT of the head 07/22/2021 FINDINGS: Brain: There has been continued evolution and delineation of the infarct seen in the left temporal lobe. No evidence of hemorrhagic conversion. There is effacement of regional sulci. No other significant mass effect or midline shift. Age appropriate atrophy and small vessel ischemic change. Cerebral ventricles: No ventriculomegaly. Paranasal sinuses: Mucosal thickening in the ethmoid, sphenoid and maxillary sinuses. Mastoid air cells: There is fluid in the left mastoid air cells. Orbital cavities: The patient has had bilateral lens replacement surgery. Bones/joints: Unremarkable. No acute fracture. Soft tissues: Unremarkable. -No corneal reflex, no gag, no cough, does not withdraw from pain, does not follow commands -Multifactorial from hypoxia secondary COVID-19, CVA, hepatic encephalopathy, polypharmacy, Keppra, Versed Plan -Continue aspirin, statin -Optimize oxygenation status -Allow for permissive hypertension -Neurochecks, aspiration precautions, NIH stroke scale Status: Acute (2) Sepsis: -Secondary to pneumonia, COVID-19 pneumonia, acute respiratory failure chest x- ray showing right upper lobe infiltrate, likely aspiration event -Primaxin -Right IJ in place -Continue Levophed maintain map >65 -Avoid fluids due to concerns of fluid overload -Keep negative fluid status -Monitor respiratory status closely Status: Acute (3) Shock: -Sepsis secondary to pneumonia, COVID-19 pneumonia -As above Status: Acute (4) Acute encephalopathy: -Secondary to pneumonia, right upper lobe, COVID-19 pneumonia, left temporal lobe CVA, sedating medications Status: Acute (5) Acute and chronic respiratory failure with hypoxia: -Secondary to right upper lobe pneumonia, COVID-19 pneumonia, aspiration pneumonia, acute CVA -Intubated 07/20/2021 -Currently intubated, sedated -Fentanyl, Precedex for sedation, avoid Versed -MRSA nares negative, stop vancomycin -Protonix for GI prophylaxis -Lovenox for DVT prophylaxis -Monitor respiratory status closely -Diuresis as needed -Primaxin for antibiotic coverage -Completing remdesivir -Decadron -Daily spontaneous breathing trials Status: Acute (6) Alcohol withdrawal: -CIWA score Status: Acute (7) Atrial fibrillation with RVR: -Started on a Cardizem drip, converted to normal sinus rhythm, currently hold off on anticoagulation given acute CVA, no rhythm control required -Cardizem drip as needed -Maintain magnesium greater than 2, potassium greater than 4 -Anticoagulation relatively contraindicated given history of thrombocytopenia, alcoholism, risk of bleeding, left temporal lobe CVA due to risk of hemorrhagic transformation -We will decide to resume anticoagulation in 2 weeks based on clinical progress -Cardiac echocardiogram, no radiographic evidence of thrombus seen LV systolic function is normal with EF of 55 to 60%. ?Mild mitral annular calcification. ?Trace tricuspid regurgitation. ?No comparison studies are available Status: Acute (8) Acute hepatitis C: Status: Acute (9) COVID: Remdisivir 200mg iv x 1 followed by 100mg iv daily dexamethasone 6mg IVP daily duoneb q6h, budesonide q12h Continue Zosyn Flutter valve/spirometer at bedside trend inflammatory markers including CRP, D dimer CTA negative for PE, gross consolidation Status: Acute (10) Dehydration: Status: Acute (11) EDGARD (acute kidney injury): Cr 1.7, baseline not known at this time Continue to monitor Continue to monitor Status: Acute (12) Liver cirrhosis: incidentally discovered on CTA chest Elevted T .bili, elevated INR, thrombocytopenia H/o alcohol consumption+, hepatitis C positive Viral load ordered Status: Acute (13) Thrombocytopenia: May be related to acute viral illness vs chronic liver disease no bleeding currently Monitor for now Status: Acute (14) Hypoxia: related to covid 19, possible fluid overload after IVF resuscitation Lasix as above CTA negative for PE, pneumothorax, consolidation Status: Acute (15) Hepatic encephalopathy: Ammonia level improving continue to monitor Rifaximin Lactulose Status: Acute (16) Hypotension: Status: Acute (17) Altered mental status: -No corneal reflex, no gag, no cough, does not withdraw from pain, does not follow commands -Multifactorial from hypoxia secondary COVID-19, CVA, hepatic encephalopathy, polypharmacy, Keppra, Versed Plan: -Continue medical interventions -Continue to assess neurologic functions -Avoid Versed, avoid Keppra, avoid sedating medications -I have already discussed with Dr. Newell, once sitting medications have time to wear off, will assess functioning -EEG will be ordered within 48 hours -Monitor neurologic function, monitor for cerebral edema, monitor for fevers Status: Acute Plan alcohol withdrawal, CIWA Hypernatremia, serum sodium 151, continue to monitor 149 start IV fluids, gentle Elevated INR secondary to liver failure, check DIC panel Mottling bilateral lower extremities, DIC panel ordered, cryoglobulins ordered, hemolytic panel ordered Attestations Medical Necessity Statement*: Patient requires hospitalization for COVID-19 pneumonia, aspiration pneumonia, acute liver failure, thrombocytopenia, A. fib, hep C, alcohol withdrawal, acute CVA, Critical Care Time: 1 hour Coding Level of Care Code Acute [employer] for [facility] F[facility] Diagnoses Acute CVA (cerebrovascular accident) I63.9 Sepsis A41.9 Shock R57.9 Acute encephalopathy G93.40 Acute and chronic respiratory failure with hypoxia J96.21 Alcohol withdrawal F10.239 Atrial fibrillation with RVR I48.91 Acute hepatitis C B17.10 COVID U07.1 Dehydration E86.0 EDGARD (acute kidney injury) N17.9 Liver cirrhosis K74.60 Thrombocytopenia D69.6 Hypoxia R09.02 Hepatic encephalopathy K72.90 Hypotension I95.9 Altered mental status R41.82
[2021-07-22] MEDS: remdesivir 100 MG in sodium chloride 0.9% (100 ml) 100 ML IV (18:08)
--- NOTE | 2021-07-22 18:31 | PC.NURSE ---
Pt resting in bed. VSS. Remains on vent, settings per RT. fentanyl and precedex gtts infusing per orders. NGT in place with flushes of 100ml q4h. Tolerated well. Minimal response noted to corneal stimulation, no gag noted. spoke with family today, continuing current course of treatment. Repositioned q2h and prn. Oral care performed as ordered. Will monitor.
--- NOTE | 2021-07-22 18:35 | P.PN_ITS ---
Subjective Subjective: -I was called at 3 AM today for patient becoming tachypneic and FiO2 increased to 100% from 60% and no gag reflex, no corneal, no pupillary reflex -Repeat CT head today social insurance administrator did not show any worsening of left temporal CVA -Patient was also on fentanyl 50 MCG/hour and Versed 2 mcG/hour and Precedex 0.7 MCG/hour and also received loading dose of Keppra -Plan was to hold on Keppra, taper off Versed,-but 2 hours after no neurological exam showed slight corneal reflex, pupils are pinpoint probably from fentanyl, patient has spontaneous breaths on ventilator-but was not awake-possibly needs more time for Versed to get off the system. -Could not taper off fentanyl and Precedex as patient has some abdominal breathing and has to increase fentanyl to 100 MCG/hour -Mottling noted on abdomen and bilateral thighs-but patient is not in shock and is off pressors maintaining MAP well above 70-sent for cryoglobulins as patient has underlying hepatitis C as well -There is a suspicion for TTP/HUS-given her renal failure, confusion, thrombocytopenia, fevers, but Hemolytic work-up showed normal haptoglobin and normal indirect bilirubin-peripheral smear is pending -Other causes of confusion-temporal CVA itself, hypernatremia, delirium, nonconvulsive seizures, alcoholic encephalopathy, uremic encephalopathy, hepatic encephalopathy, medications -Patient ammonia improved from 70 to 30; sodium 151 but with CVA we are avoiding giving IV hypotonic fluid and currently receiving only free water through NG tube; -Patient was confused even when renal functions were normal-not sure how much w orsening uremia is contributing to current altered mental status we will consult renal -Other labs and imaging reviewed -Overall prognosis is poor- reported being admitted to the hospital and cur rently cannot come to see the patient and wants patient sister and brothers to make decision Medications: Reviewed: Yes Vitals/I&O/Wt Last Vital Signs Temp 98.0 F 07/22/21 12:00 Pulse 115 H 07/22/21 16:30 Resp 23 H 07/22/21 17:58 BP 123/78 07/22/21 16:30 Pulse Ox 97 07/22/21 17:58 07/22/21 07/22/21 07/22/21 06:59 14:59 22:59 Intake Total 1781.441 / 2960.049 716.078 / 716.078 412.75 / 1128.828 Output Total 650 / 1950 825 / 825 Balance 1131.441 / 1010.049 716.078 / 716.078 -412.25 / 303.828 Weight last 48 hrs Weight 178 lb 4.8 oz Weight 185 lb 12.8 oz Physical Exam Narrative: PHYSICAL EXAM: General: lying in bed, sedated HEENT:NCAT, Pin point pupils bilaterally, corneal reflex present Neck: Supple Lungs: Coarse sounds bilaterally Heart: s1/s2, RRR Abd: soft, NT, ND, BS + Normoactive Extremities: No edema, mottling noted on bilateral thighs GUSSET FOLDER: sedated and limited examination SKIN: no rash LDA: # CVC: Right IJ 07/19/2021 Urinary Catheter Management: Bart[place]: Cath Placed During This Visit: yes Reason for Continuing Indwelling Catheter: Accurate Measurement of Urinary Output in Critically Ill Patients Urinary Catheter Date of Insertion: 07/18/21 Urinary Catheter Time of Insertion: 12:24 Data : 07/22/21 04:13 07/22/21 04:13 Other Labs: Radiology Impressions Chest CTA 07/17/21 18:35 IMPRESSION: 1. No evidence for pulmonary embolus. Evaluation of the smaller arteries is limited by significant breathing motion artifact. 2. No acute pulmonary finding. 3. Liver cirrhosis with portal venous hypertension. 4. Splenomegaly. Liver Ultrasound 07/18/21 11:48 IMPRESSION: 1. Technically very limited evaluation of the RIGHT upper quadrant due to lack of cooperation and short of breath. 2. Moderate hepatomegaly with changes of cirrhosis. Unable to evaluate the portal vein for reversal of flow. 3. Small amount of gallbladder sludge with no stones identified. Head/Neck CTA 07/20/21 08:55 IMPRESSION: 1. Irregular area of low density in the left temporal lobe with loss of garcia-white matter differentiation consistent with a subacute infarct. 2. No significant stenosis nor large vessel occlusion. IMPRESSION: No hemodynamically significant stenosis or occlusion. REFERENCES: NASCET CRITERIA. The degree of internal carotid artery stenosis is based on NASCET criteria. Normal is no stenosis. Mild is less than 50% stenosis. Moderate is 50-69% stenosis. Severe is 70% to 99% stenosis. Total occlusion is no detectable patent lumen. Carotid Doppler Study 07/20/21 18:20 IMPRESSION: 1. Suboptimal examination due to poor patient positioning and inability to cooperate. 2. No definite arterial stenosis involving the visualized carotid arteries. 3. A large bandage over the right neck obscures evaluation of the left mid and distal internal carotid artery. 4. No definite flow is seen in the left vertebral artery. This could be due to poor patient positioning or arterial occlusion. 5. All of the waveforms (both internal carotid and common carotid) show high resistance flow. 6. Heterogeneous atherosclerotic plaque in the carotid bulb. 7. Consider CTA to further assess. REFERENCES: SRU CRITERIA. The degree of internal carotid artery stenosis is based on criteria defined by the Society of Radiologists in Ultrasound (SRU). Normal is no stenosis. Mild is less than 50% stenosis. Moderate is 50-69% stenosis. Severe is greater than 69% stenosis to near occlusion. Near occlusion is a markedly narrowed lumen. Total occlusion is no detectable patent lumen. ADDENDUM: 07/20/[address] Estrada at 07/20/2021 8:47 AM CDT. KUB X-Ray 07/21/21 08:24 IMPRESSION: Nasogastric tube position as above. No acute abdominal abnormality. Abdomen Ultrasound 07/21/21 13:22 Impression: Ventral hernia, fat filled. Head CT 07/22/21 02:49 IMPRESSION: Stable left MCA distribution infarct. Mild left mastoid effusion. Chest X-Ray 07/22/21 07:00 IMPRESSION: Interval worsening of previously seen consolidation with superimposed pulmonary edema with probable ARDS. Laboratory Results WBC 2.9 10^3/uL (4.0-10.0) L 07/22/21 04:13 RBC 3.40 10^6/uL (4.1-5.3) L 07/22/21 04:13 Hgb 11.3 g/dL (11.7-16.6) L 07/22/21 04:13 Hct 35.1 % (42.0-52.0) L 07/22/21 04:13 MCV 103.2 fl (80-94) H 07/22/21 04:13 MCH 33.2 pg (28.0-34.0) 07/22/21 04:13 MCHC 32.2 g/dL (30.0-36.0) 07/22/21 04:13 RDW 18.6 % (12.1-15.1) H 07/22/21 04:13 Plt Count 64 10^3/cmm (130-400) L 07/22/21 04:13 MPV 11.4 fL (7.4-10.4) H 07/22/21 04:13 Neut % (Auto) 83.4 % 07/22/21 04:13 Lymph % (Auto) 8.1 % 07/22/21 04:13 [place] % (Auto) 7.0 % 07/22/21 04:13 Eos % (Auto) 0.0 % 07/22/21 04:13 Baso % (Auto) 0.4 % 07/22/21 04:13 Reticulocyte % (Auto) 1.1 % (0.5-2.0) 07/22/21 04:13 Neut # (Auto) 2.38 10^3/uL (1.8-7.7) 07/22/21 04:13 Lymph # (Auto) 0.2 10^3/uL (0.8-4.8) L 07/22/21 04:13 [place] # (Auto) 0.2 10^3/uL (0.2-0.9) 07/22/21 04:13 Eos # (Auto) 0.0 10^3/uL (0.0-0.8) 07/22/21 04:13 Baso # (Auto) 0.0 10^3/uL (0.0-0.1) 07/22/21 04:13 Nucleated RBC % (auto) 0 % 07/22/21 04:13 Nucleated RBCs # 0.0 /100WBC 07/22/21 04:13 Haptoglobin 62.0 mg/L (30-200) 07/22/21 04:15 PT 26.60 SECONDS (12.1-14.9) H 07/22/21 04:13 INR 2.40 (0.8-1.2) H 07/22/21 04:13 APTT 37.4 SECONDS (23.9-36.7) H 07/21/21 10:27 Fibrinogen 237 mg/dL (174-498) 07/21/21 10:27 D-Dimer 5.10 ug/mIFEU (0-0.59) H 07/21/21 10:27 Specimen Type arterial 07/22/21 02:52 Sample Site brachial,right 07/22/21 02:52 ABG pH 7.35 (7.35-7.45) 07/22/21 02:52 ABG pCO2 41.1 mmHg (35-45) 07/22/21 02:52 ABG pO2 76.0 mmHg (80.0-100.0) L 07/22/21 02:52 ABG HCO3 22.6 mmol/L (22-26) 07/22/21 02:52 ABG O2 Saturation 96.5 07/21/21 09:52 ABG Base Excess -2.9 mmol/L (-2.0-2.0) L 07/22/21 02:52 Deejay Test n/a 07/22/21 02:52 A-a O2 Gradient 39.8 mmHg (5-10) H 07/21/21 09:52 Hematocrit 37.4 % (42-52) L 07/22/21 02:52 Hgb O2 Saturation 94.9 % (95-100) L 07/21/21 09:52 Carboxyhemoglobin 0.7 %THgb (0.4-20.1) 07/21/21 09:52 Methemoglobin 0.9 % (0.4-1.5) 07/21/21 09:52 Total Hemoglobin 12.9 g/dL (14-18) L 07/21/21 09:52 Sodium 152.0 mmol/L (131-143) H 07/21/21 09:52 Potassium 3.9 mmol/L (3.5-5.0) 07/21/21 09:52 Glucose 147.0 mg/dL (70-115) H 07/21/21 09:52 Ionized Calcium 1.1 mmol/L (1.1-1.4) 07/21/21 09:52 Respiration Rate 16.0 % 07/22/21 02:52 O2 Delivery Device vent 07/22/21 02:52 O2 Liters/Min 50.0 % 07/20/21 04:00 Spontaneous Rate 28.0 % 07/22/21 02:52 FiO2 100.0 % 07/22/21 02:52 Tidal Volume .4 07/22/21 02:52 PEEP 10.0 cmH20 07/22/21 02:52 Pressure Support 10.0 cmH2O 07/22/21 02:52 Alarm Adjuster ID nery 07/22/21 02:52 Sodium 151 mmol/L (136-145) H 07/22/21 04:13 Potassium 4.0 mmol/L (3.5-5.1) 07/22/21 04:13 Chloride 118 mmol/L (98-107) H 07/22/21 04:13 Carbon Dioxide 19 mmol/L (22-29) L 07/22/21 04:13 Anion Gap 18.0 (5-19) 07/22/21 04:13 BUN 67 mg/dL (8-23) H 07/22/21 04:13 Creatinine 1.7 mg/dL (0.7-1.2) H 07/22/21 04:13 GFR Calculation 40.8 mL/min (90-130) L 07/22/21 04:13 Glucose 164 mg/dL (65-115) H 07/22/21 04:13 POC Glucose 138 mg/dL (70-110) H 07/20/21 18:37 Calculated Osmolality 335 mOsm/kg (285-295) H 07/22/21 04:13 Lactate 1.3 mmol/L (0.5-2.2) 07/22/21 04:13 Calcium 7.5 mg/dL (8.5-10.5) L 07/22/21 04:13 Phosphorus 6.5 mg/dL (2.5-4.5) H 07/22/21 04:13 Magnesium 2.9 mg/dL (1.7-2.3) H 07/22/21 04:13 Total Bilirubin 3.0 mg/dL (0.15-1.2) H 07/22/21 04:15 Direct Bilirubin 1.50 mg/dL (0.00-0.30) H 07/22/21 04:15 Indirect Bilirubin 1.50 07/22/21 04:15 AST 36 U/L (0-40) 07/22/21 04:13 ALT 14 U/L (0-41) 07/22/21 04:13 Alkaline Phosphatase 30 IU/L (40-130) L 07/22/21 04:13 Ammonia 60 umol/L (16-60) 07/21/21 04:25 Lactate Dehydrogenase 287 U/L (135-225) H 07/22/21 04:15 Creatine Kinase 259 U/L (39-308) D 07/22/21 04:15 C-Reactive Protein 14.2 mg/L (0.0-4.9) H 07/22/21 04:13 NT-Pro-B Natriuret Pep 8893 pg/mL (0-125) H 07/22/21 04:15 Total Protein 6.9 g/dL (6.6-8.7) 07/22/21 04:13 Albumin 4.1 g/dL (3.5-5.2) 07/22/21 04:13 Globulin 2.8 g/dL (1.3-4.6) 07/22/21 04:13 Procalcitonin 0.26 ng/mL (0-0.5) 07/22/21 04:15 TSH 1.47 uIU/mL (0.27-4.20) 07/18/21 03:20 Urine Color Yellow (Yellow) 07/22/21 07:45 Urine Appearance Clear (CLEAR) 07/22/21 07:45 Urine pH 5 (5-7) 07/22/21 07:45 Ur Specific [place] 1.015 (1.005-1.030) 07/22/21 07:45 Urine Protein Neg (Negative) 07/22/21 07:45 Urine Glucose (UA) Norm (Normal) 07/22/21 07:45 Urine Ketones 1+ (Negative) H 07/22/21 07:45 Urine Blood Neg (Negative) 07/22/21 07:45 Urine Nitrate Negative (Negative) 07/22/21 07:45 Urine Bilirubin Neg (Negative) 07/22/21 07:45 Urine Urobilinogen Norm mg/dL (Negative) 07/22/21 07:45 Ur Leukocyte Esterase Negative (Negative) 07/22/21 07:45 Urine RBC 10-15 /hpf (0-2) H 07/18/21 15:11 Urine WBC 10-15 /hpf (0-5) H 07/18/21 15:11 Ur Squamous Epith Cells 0-4 /hpf (0-5) H 07/18/21 15:11 Amorphous Sediment Not Reportable 07/18/21 15:11 Urine Bacteria Trace /hpf (NONE) 07/18/21 15:11 Bronch Specimen Source Right and left lobes 07/20/21 14:00 Bronchial Fluid Color Yellow 07/20/21 14:00 Bronchial Fluid Appearance Hazy (CLEAR) 07/20/21 14:00 Bronchial Fluid WBC 420 /uL 07/20/21 14:00 Bronchial Fluid RBC 180 10^3/uL 07/20/21 14:00 Bronch Cells Counted 300 07/20/21 14:00 Bronchial Neutrophils 8.00 % (0.9-2.3) H 07/20/21 14:00 Bronchial Lymphocytes 0.00 % (10.71-12.91) L 07/20/21 14:00 Bronchial Eosinophils 0.00 % (0.13-0.25) L 07/20/21 14:00 Bronchial Macrophages 92.00 % (83.6-86.8) H 07/20/21 14:00 Bronchial Diff Comment Yes 07/20/21 14:00 Ethyl Alcohol < 10 mg/dL (0-10) 07/17/21 15:42 Hepatitis A IgM Ab Non-reactive (Nonreactive) 07/18/21 03:20 Hep Bs Antigen Non-reactive (Nonreactive) 07/18/21 03:20 Hep Bs Antibody 3.5 (11.5-1000) L 07/18/21 03:20 Hep B Core Total Ab Non-reactive (Nonreactive) 07/18/21 03:20 Hepatitis C Antibody Reactive (Nonreactive) H 07/18/21 03:20 HCV RNA (PCR) IUs/ml 5.87 Log IU/mL (NOT DETECTED) H 07/18/21 04:29 HCV RNA (PCR) IU log10 136667 IU/mL (NOT DETECTED) H 07/18/21 04:29 HIV 1&2 Ab & HIV 1 Ag Non-reactive (Non-Reactiv) 07/18/21 03:20 HIV 1&2 Antibody Non-reactive (Non-Reactiv) 07/18/21 03:20 CARLOS, IgG Interpret Negative 07/22/21 04:13 CARLOS, Poly Interpret Negative 07/22/21 04:13 Micro: Microbiology 07/20/21 14:00 Fungal Smear - Preliminary Sputum - Endotracheal Wash 07/20/21 14:00 Gram Stain - Final Lung Right Middle Lobe Bronchoalveolar Lavage Culture - Final 07/21/21 21:50 Blood Culture - Preliminary Blood SPECIMEN COLLECTED 07/21/21 21:47 Blood Culture - Preliminary Blood SPECIMEN COLLECTED A&P Assessment and plan (1) Acute encephalopathy: Status: Acute (2) Acute and chronic respiratory failure with hypoxia: Status: Acute (3) Alcohol withdrawal: Status: Acute (4) Acute hepatitis C: Status: Acute (5) Hepatic encephalopathy: Status: Acute (6) Thrombocytopenia: Status: Acute (7) Liver cirrhosis: Status: Acute (8) COVID: Status: Acute (9) Renal failure: Status: Acute Plan #Altered mental status-subacute left temporal lobe CVA /on admission hepatic encephalopathy in pt with alcoholic cirrhosis and h/o alcoholism and hepatitis C - likely in delirium tremens/?? Covid vasculitis -Other causes of confusion--temporal CVA itself, hypernatremia, delirium, nonconvulsive seizures, alcoholic encephalopathy, uremic encephalopathy, hepatic encephalopathy, medications -On fentanyl 50 MCG/hour and Precedex 0.7 MCG/hour; DC Versed and hold Keppra to assess patient mentation; and neuro checks every 2 hours - admission ammonia 70 >30> 60 - on lactulose - target 2-3 soft bm/day; Rifaximin 550 mg PO BID -MVT/FA/Thiamine -CT head showed focal area of hyper attenuation measuring 5 x 2.7 cm within the left temporal lobe resembling subacute infarct-repeat CT no worsening noted -Recommended bedside physical therapy -Aspirin, statin;-Maintain MAP close to 70 -Avoid hypotonic fluids -Neurology to see patient once off sedative medications and possible EEG -There is a suspicion for TTP/HUS-given her renal failure, confusion, thrombo cytopenia, fevers, but Hemolytic work-up showed normal haptoglobin and normal indirect bilirubin-peripheral smear is pending -Patient sodium 151 but with CVA we are avoiding giving IV hypotonic fluid and currently receiving only free water through NG tube; --Patient was confused even when renal functions were normal-not sure how much worsening uremia is contributing to current altered mental status we will consult renal # Acute hypoxic respiratory failure - covid 19 and aspiration pneumonia - CT 07/18/21: no evidence of PE; - Intubated 07/20/21: on MMV requring 90 % FIO2 - COVID positive on 07/12/21 -Chest x-ray today interval worsening of interval worsening of previously seen consolidation with superimposed pulmonary edema with probable ARDS - On dexamethasone and Remedesivir - Duoneb q 6 hr nebs scheduled - so far bacterial antigens, legionella antigen are negative; MRSA PCR negative - dced vancomycin - currently on imipenam for aspiration pneumonia and worsening hypoxia - Continue aspiraiton precautions - Hold Tube feeding due to copious gastric secretions - Closely monitor saturations #Shock - hypovolemic vs sepsis - resolved -Echo on admission - reported normal LV EF -off pressors # Persistent Fevers - No spike since yesterday night - Central cause due to stroke vs sepsis from aspiration - so far cultures negative - we will repeat Blood cutlures ; BAL cultures pending - currently on imipenam for broad coverage and aspiration; dced vancomycin as MRSA negative Recommendations conveyed to hospitalist/RN/RT -Overall prognosis is poor- reported being admitted to the hospital and currently cannot come to see the patient and wants patient sister and brothers to make decision Attestations Medical Necessity Statement*: Patient requires hospitalization for alcohol withdrawal, acute encephalopathy, COVID-19 pneumonia, acute acute hypoxic respiratory failure, EDGARD, liver cirrhosis, thrombocytopenia, sepsis, shock Time Spent in Patient Care: Greater than 35 minutes (>than 50% of time spent in counselling and/or direct pt care on unit) . Critical Care Time: The high probability of a clinically significant, sudden or life threatening deterioration of the patient's [neurology, pulmonary, renal] system(s) required my full and direct attention, intervention and personal management. The critical care time is as shown. This time is in addition to time spent performing any reported procedures but includes the following: [x] Data and vital sign review and interpretation [x] Patient assessment, examination and intervention [x] Documentation [x] Medication orders and management Critical Care Time (min): 45 Coding Level of Care Code Established Pt Acute Sr Risk Management Consultant for Chg Fwd Patient Type Established History Comprehensive Exam Comprehensive Medical Decision Making High Complexity Diagnoses Acute and chronic respiratory failure with hypoxia J96.21 Alcohol withdrawal F10.239 Acute encephalopathy G93.40 Acute hepatitis C B17.10 Hepatic encephalopathy K72.90 Thrombocytopenia D69.6 Liver cirrhosis K74.60 COVID U07.1 Renal failure N19 Time Spent (min) 45
[2021-07-22] MEDS: acetaminophen 325 mg Tablet 650 MG PO (19:07)
[2021-07-22] MEDS: dexamethasone 4 mg/mL INJ 6 MG IVP (20:58)
[2021-07-22] MEDS: atorvastatin 40 mg Tablet PO (20:58)
--- NOTE | 2021-07-22 21:25 | PC.NURSE ---
Versed 98.267 mls wasted with second nurse witness.
--- NOTE | 2021-07-22 23:50 | PC.NURSE ---
Pt's right hand cold with delayed capillary refill and dusky color. Radial pulse normal. Hand wrapped in warm blanket.
[2021-07-23] VITALS (73 sets, daily range): BP systolic 76–136; BP diastolic 40–87; PULSE 87–163; RESP 15–31; TEMP 36.7–38.8; O2SAT 81–98
[2021-07-23] MEDS: lactulose oral liq 20 gm/30 mL UDC 10 GM PO ×5 (01:02→22:56)
[2021-07-23] MEDS: ipratropium-albuterol 3 mL Neb INHALATION ×4 (02:26→20:17)
--- NOTE | 2021-07-23 02:47 | PC.NURSE ---
Distal line very difficult to flush.
[2021-07-23] MEDS: midodrine 5 mg TABLET 10 MG PO ×4 (03:48→21:06)
[2021-07-23] MEDS: dexmedeTOMIDine 0.9 % NaCL 400 MCG/100 ML PREMIX 15.49 MCG IV ×4 (03:48→21:50)
[2021-07-23] MEDS: acetaminophen 325 mg Tablet 650 MG PO ×3 (04:08→10:50)
[2021-07-23 04:18] LABS: Basophils % 0.2 %; Hematocrit 36.5 % (42.0-52.0); Hemoglobin 11.2 g/dL (11.7-16.6); Lymphocytes # 0.2 10^3/uL (0.8-4.8); Lymphocytes % 3.5 %; Mean Corpuscular HGB Conc 30.7 g/dL (30.0-36.0); Mean Corpuscular Hemoglobin 33.2 pg (28.0-34.0); Mean Corpuscular Volume 108.3 fl (80-94); Mean Platelet Volume 11.3 fL (7.4-10.4); Monocytes # 0.3 10^3/uL (0.2-0.9); Monocytes % 6.4 %; Neutrophils # 4.57 10^3/uL (1.8-7.7); Neutrophils % 88.5 %; Nucleated Red Blood Cells % 0 %; Platelet Count 63 10^3/cmm (130-400); Red Blood Count 3.37 10^6/uL (4.1-5.3); Red Cell Distribution Width 19.6 % (12.1-15.1); White Blood Count 5.2 10^3/uL (4.0-10.0)
[2021-07-23 04:30] LABS: INR 2.16 (0.8-1.2)
[2021-07-23 04:34] LABS: Ammonia 50 umol/L (16-60)
[2021-07-23 04:40] LABS: Alanine Aminotransferase 10 U/L (0-41); Albumin Level 4.4 g/dL (3.5-5.2); Alkaline Phosphatase 31 IU/L (40-130); Anion Gap 20.7 (5-19); Aspartate Amino Transferase 38 U/L (0-40); C Reactive Protein 9.9 mg/L (0.0-4.9); Calcium 7.8 mg/dL (8.5-10.5); Carbon Dioxide 21 mmol/L (22-29); Chloride 114 mmol/L (98-107); Globulin 2.9 g/dL (1.3-4.6); Glomerular Filtration Rate 18.3 mL/min (90-130); Glucose 148 mg/dL (65-115); Osmolality Calculated 346 mOsm/kg (285-295); Potassium 4.7 mmol/L (3.5-5.1); Sodium 151 mmol/L (136-145); Total Bilirubin 2.6 mg/dL (0.15-1.2); Total Protein 7.3 g/dL (6.6-8.7)
[2021-07-23 04:41] LABS: Lactate (Lactic Acid level) 1.5 mmol/L (0.5-2.2)
[2021-07-23 04:44] LABS: Blood Urea Nitrogen 101 mg/dL (8-23); NT Pro B Type Natriuretic Pept 26548 pg/mL (0-125); Phosphorus 9.8 mg/dL (2.5-4.5); Procalcitonin 0.61 ng/mL (0-0.5)
[2021-07-23 04:55] LABS: Creatine Phosphokinase 233 U/L (39-308)
[2021-07-23 05:15] LABS: ABG PCO2 52.3 mmHg (35-45); Arterial Blood Gas Hematocrit 35.3 % (42-52); Base Excess ABG -6.5 mmol/L (-2.0-2.0); Blood Gas Allen Test Pos; Blood Gas Sample Site Radial, left; Blood Gas Sample Type Arterial; HCO3 ABG 21.4 mmol/L (22-26); Oxygen Device VENT; PO2 ABG 82.4 mmHg (80.0-100.0)
--- NOTE | 2021-07-23 05:29 | XRR_ITS ---
PROCEDURE INFORMATION: Exam: XR Chest Exam date and time: 07/23/2021 5:29 AM Age: 66 years old Clinical indication: Shortness of breath; Patient HX: Follow up covid, PT on vent; Additional info: Hypoxia, hypercapnia TECHNIQUE: Imaging protocol: XR of the chest. Views: 1 view. COMPARISON: CR (CHEST, ) 07/22/2021 3:03 AM FINDINGS: Tubes, catheters and devices: Endotracheal tube, feeding tube, central venous catheter again demonstrated. The endotracheal tube terminates 6.0 cm above the souleymane. Lungs: Hyperinflation, interstitial disease, and extensive airspace disease. Pleural spaces: Questionable small pleural effusions. Heart/Mediastinum: No cardiomegaly. Bones/joints: Degenerative change. XR/XR chest 1V portable [id number] IMPRESSION: 1. Endotracheal tube, feeding tube, central venous catheter again demonstrated. The endotracheal tube terminates 6.0 cm above the souleymane. 2. Hyperinflation, interstitial disease, and extensive airspace disease.
[2021-07-23 05:41] LABS: ABG PH Result 7.22 (7.35-7.45)
--- NOTE | 2021-07-23 06:01 | PC.NURSE ---
No cooling blanket available. Víctor hugger placed on patient, set to 32 degrees Celsius. Ice packs placed over femoral vessels for cooling.
[2021-07-23] MEDS: FUROsemide 10 mg/mL SDV 10mL 60 MG IVP (07:35)
[2021-07-23] MEDS: pantoprazole 40 mg SDV IVP (07:36)
[2021-07-23] MEDS: multivitamin therapeutic Tablet 1 TAB PO (08:18)
[2021-07-23] MEDS: folic acid 1 mg Tablet PO (08:18)
[2021-07-23] MEDS: aspirin 81 mg EC Tablet PO (08:18)
--- NOTE | 2021-07-23 08:29 | P.PN_ITS ---
Subjective Subjective: Patient was seen and examined this morning, continues to be intubated, currently his GCS is 3T Corneal reflex , and cough reflex is present. But BUN and serum creatinine has worsened, significantly today.Patient made 450 cc urine output overnight. Patient has remained febrile throughout the day. Noted T-max of 101.8. Patient family agreed for him to go dialysis for short period of time, hoping that with correction of uremia And other electrolyte abnormalities, his mentation might improve. Right femoral dialysis catheter was placed, without any complication, upon start of dialysis patient went into A. fib with RVR, requiring 5 mg metoprolol IV push, followed by amiodarone IV bolus and amnio drip. Patient was also hypotensive after starting dialysis, requiring Levophed, no fluid was removed during dialysis. Medications: Reviewed: Yes Medication Review Details: Generic Name Dose Route Start Last Admin Trade Name Freq PRN Reason Stop Dose Admin Acetaminophen 650 mg 07/17/21 22:43 07/23/21 10:50 Acetaminophen 32 5 Mg Tablet PO 650 mg Q6H PRN Administration Mild/Mod Pain Or Temp >/= 101 Albuterol/Ipratrop ium 3 ml 07/18/21 03:00 07/23/21 14:01 Ipratropium-Albu terol 3 Ml Neb INHALATION 3 ml Q6H.RESPIRATORY S CH Administration Aspirin 81 mg 07/19/21 17:45 07/23/21 08:18 Aspirin 81 Mg Ec Tablet PO 81 mg DAILY BRIONNA Administration Atorvastatin Calci um 40 mg 07/19/21 21:00 07/22/21 20:58 Atorvastatin 40 Mg Tablet PO 40 mg BEDTIME BRIONNA Administration Benzonatate 100 mg 07/17/21 22:43 07/18/21 08:36 Benzonatate 100 Mg Capsule PO 100 mg TID PRN Administration COUGH Dexamethasone 6 mg 07/18/21 20:00 07/22/21 20:58 Dexamethasone 4 Mg/Ml Inj IVP 6 mg Q24H BRIONNA Administration Enoxaparin Sodium 30 mg 07/23/21 17:00 07/23/21 16:04 Enoxaparin 30 Mg /0.3 Ml Syringe SUBCUT 30 mg Q24H BRIONNA Administration Folic Acid 1 mg 07/18/21 09:00 07/23/21 08:18 Folic Acid 1 Mg Tablet PO 1 mg DAILY BRIONNA Administration Guaifenesin 400 mg 07/18/21 01:45 07/18/21 01:56 Guaifenesin 100 Mg/5 Ml Udc 10 Ml PO 400 mg Q4H PRN Administration COUGH Norepinephrine Bit artrate 4 mg 254 mls @ 0 mls/h r 07/19/21 09:15 07/23/21 14:24 / Dextrose IV 5 mcg/min .Q0M BRIONNA 19.05 mls/hr Administration Protocol Per Protocol dexmedeTOMIDine 0. 9 % NaCL 400 mcg in 100 ml s @ 0 mls/hr 07/19/21 11:15 07/23/21 15:37 Precedex IV 0.7 mcg/kg/hr .Q0M BRIONNA 15.49 mls/hr Administration Protocol Per Protocol Albumin Human 25 gm in 100 mls @ 60 mls/hr 07/20/21 08:30 07/23/21 17:34 Albumin IV Infused Q8H BRIONNA Infusion Midazolam HCl 100 mg/ Sodium 100 mls @ 0 mls/h r 07/20/21 12:45 07/22/21 21:24 Chloride IV Infused .Q0M BRIONNA Titration Protocol Per Protocol Fentanyl 2,500 mcg / Sodium 250 mls @ 0 mls/h r 07/20/21 12:45 07/22/21 19:10 Chloride IV 50 mcg/hr .Q0M BRIONNA 5 mls/hr Titration Protocol Per Protocol Levetiracetam 1,00 0 mg/ Sodium 110 mls @ 440 mls /hr 07/22/21 03:30 07/22/21 16:24 Chloride IV Not Given Q12H BRIONNA Dextrose 1,000 mls @ 75 ml s/hr 07/23/21 08:30 07/23/21 14:11 D5w IV 0 mls/hr .[id number] BRIONNA Infusion Imipenem/Cilastati n Sodium 250 100 mls @ 200 mls /hr 07/23/21 12:00 07/23/21 17:51 mg/ Sodium Chlor elena IV 200 mls/hr Q6H BRIONNA Administration Amiodarone HCl 900 mg/ 518 mls @ 0 mls/h r 07/23/21 14:30 07/23/21 14:29 Dextrose/ IV Misce llaneous IV 1 mg/min Supplies .Q0M BRIONNA 34.53 mls/hr Administration Protocol Per Protocol Lactulose 10 gm 07/17/21 23:00 07/23/21 16:04 Lactulose Oral L iq 20 Gm/30 Ml Udc PO 10 gm Q6H BRIONNA Administration Protocol Lanolin 1 applic 07/19/21 14:02 07/19/21 14:38 Lanolin Oint 7 G m TOPICAL 1 appful PRN PRN Administration DRYNESS Midodrine 10 mg 07/19/21 09:30 07/23/21 15:32 Midodrine 5 Mg T ablet PO 10 mg Q6H BRIONNA Administration Multivitamins Ther apeutic 1 tab 07/18/21 09:00 07/23/21 08:18 Multivitamin The rapeutic Tablet PO 1 tab DAILY BRIONNA Administration Pantoprazole Sodiu m 40 mg 07/21/21 08:00 07/23/21 07:36 Pantoprazole 40 Mg Sdv IVP 40 mg Q24H BRIONNA Administration Rifaximin 550 mg 07/19/21 18:00 07/23/21 17:51 Rifaximin 550 Mg Tablet PO 550 mg BID BRIONNA Administration Protocol Thiamine HCl 100 mg 07/20/21 09:00 07/23/21 08:18 Thiamine 100 Mg/ Ml Sdv IVP 100 mg DAILY BRIONNA Administration Vitals/I&O/Wt Last Vital Signs Temp 99.9 F H 07/23/21 06:22 Pulse 87 07/23/21 07:55 Resp 18 07/23/21 07:55 BP 116/75 07/23/21 06:00 Pulse Ox 95 07/23/21 07:55 07/22/21 07/23/21 07/23/21 22:59 06:59 14:59 Intake Total 540.25 / 1256.328 801 / 2057.328 200 / 200 Output Total 935 / 935 230 / 1165 Balance -394.75 / 321.328 571 / 892.328 200 / 200 Weight last 48 hrs Weight 81.737 kg Weight 80.876 kg Physical Exam Narrative: GCS:3T HENMT: COMMON NORMALS: normocephalic and atraumatic HEAD & SCALP: normocephalic and atraumatic Chest: CHEST: Yes Symmetrical chest wall rise Resp: COMMON NORMALS: clear to auscultation bilaterally EFFORT & INSPE CTION: Yes symmetric chest movement AUSCULTATION: clear to auscultation bilaterally Cardio: COMMON NORMALS: regular rate, regular rhythm, S1 normal heart sound present, S2 normal heart sound present, No gallops present (Cardio), No murmurs present (Cardio), No rub (Cardio) and Peripheral pulses 2+ throughout RATE: regular rate RHYTHM: regular rhythm HEART SOUNDS: S1 normal heart sound present and S2 normal heart sound present PERIPHERAL PULSES: Peripheral pulses 2+ throughout GI: COMMON NORMALS: Normal to inspection, nondistended, normoactive bowel sounds present, Soft to palpation, non-tender, No hepatosplenomegaly present and no masses AUSCULTATION: Yes normoactive bowel sounds PALPATION: Yes Soft to palpation and Yes No hepatosplenomegaly present RECTAL EXAM: Yes deferred Extremity: COMMON NORMALS: no clubbing, cyanosis or edema and no pedal edema Urinary Catheter Management: Bartlett: Cath Placed During This Visit: yes Reason for Continuing Indwelling Catheter: Accurate Measurement of Urinary Output in Critically Ill Patients Urinary Catheter Date of Insertion: 07/18/21 Urinary Catheter Time of Insertion: 12:24 Data : 07/23/21 03:58 07/23/21 03:58 Micro: Microbiology 07/21/21 21:50 Blood Culture - Preliminary Blood NEGATIVE TO DATE 07/21/21 21:47 Blood Culture - Preliminary Blood NEGATIVE TO DATE 07/20/21 14:00 Fungal Smear - Preliminary Sputum - Endotracheal Wash 07/20/21 14:00 Gram Stain - Final Lung Right Middle Lobe Bronchoalveolar Lavage Culture - Final A&P Assessment and plan (1) Acute CVA (cerebrovascular accident): -CT of the head Focal area of hypoattenuation measuring 5.0 x 2.7 cm within the left temporal lobe which most resembles a subacute infarct. This can be further evaluated with MRI. -NIH stroke scale difficult to assess as patient has acute encephalopathy, multifactorial from sepsis, shock, hypoxia, COVID-19, alcohol withdrawal -Timeframe of CVA difficult to access, possibly within the last 72 hours, given acute encephalopathy throughout his hospitalization -Does have spontaneous movement of upper and lower extremity, does withdraw from pain, pupils equal round reactive to light -Discussed with telestroke at [facility], advised of conservative intervention, hold off full dose anticoagulation for least 2 weeks due to hemorrhagic conversion risk -Does have history of alcoholism, does have COVID-19 possibly hypercoagulability associate with COVID-19, had episodes of A. fib during his hospitalization -Location of temporal lobe CVA, likely will result in a receptive aphasia, possibly contributing to his acute encephalopathy -Will obtain CTA of the head and neck 1. Irregular area of low density in the left temporal lobe with loss of garcia-white matter differentiation consistent with a subacute infarct. 2. No significant stenosis nor large vessel occlusion. -Repeat CT of the head 1. Similar appearing subacute infarct in the left temporal region 2. Mild presumed small vessel ischemic disease of indeterminate age. 3. No acute intracranial hemorrhage. -Repeat CT of the head 07/22/2021 FINDINGS: Brain: There has been continued evolution and delineation of the infarct seen in the left temporal lobe. No evidence of hemorrhagic conversion. There is effacement of regional sulci. No other significant mass effect or midline shift. Age appropriate atrophy and small vessel ischemic change. Cerebral ventricles: No ventriculomegaly. Paranasal sinuses: Mucosal thickening in the ethmoid, sphenoid and maxillary sinuses. Mastoid air cells: There is fluid in the left mastoid air cells. Orbital cavities: The patient has had bilateral lens replacement surgery. Bones/joints: Unremarkable. No acute fracture. Soft tissues: Unremarkable. -No corneal reflex, no gag, no cough, does not withdraw from pain, does not follow commands -Multifactorial from hypoxia secondary COVID-19, CVA, hepatic encephalopathy, polypharmacy, Keppra, Versed Plan -Continue aspirin, statin -Optimize oxygenation status -Allow for permissive hypertension -Neurochecks, aspiration precautions, NIH stroke scale Status: Acute (2) Sepsis: -Secondary to pneumonia, COVID-19 pneumonia, acute respiratory failure chest x- ray showing right upper lobe infiltrate, likely aspiration event -Primaxin -Right IJ in place -Continue Levophed maintain map >65 -Avoid fluids due to concerns of fluid overload -Keep negative fluid status -Monitor respiratory status closely Status: Acute (3) Shock: -Sepsis secondary to pneumonia, COVID-19 pneumonia -As above Status: Acute (4) Acute encephalopathy: -Secondary to pneumonia, right upper lobe, COVID-19 pneumonia, left temporal lobe CVA, sedating medications Status: Acute (5) Acute and chronic respiratory failure with hypoxia: -Secondary to right upper lobe pneumonia, COVID-19 pneumonia, aspiration pneumonia, acute CVA -Intubated 07/20/2021 -Currently intubated, sedated -Fentanyl, Precedex for sedation, avoid Versed -MRSA nares negative, stop vancomycin -Protonix for GI prophylaxis -Lovenox for DVT prophylaxis -Monitor respiratory status closely -Diuresis as needed -Primaxin for antibiotic coverage -Completing remdesivir -Decadron -Daily spontaneous breathing trials Status: Acute (6) Alcohol withdrawal: -CIWA score Status: Acute (7) Atrial fibrillation with RVR: -Started on a Cardizem drip, converted to normal sinus rhythm, currently hold off on anticoagulation given acute CVA, no rhythm control required -On amnio drip. -Maintain magnesium greater than 2, potassium greater than 4 -Anticoagulation relatively contraindicated given history of thrombocytopenia, alcoholism, risk of bleeding, left temporal lobe CVA due to risk of hemorrhagic transformation -We will decide to resume anticoagulation in 2 weeks based on clinical progress -Cardiac echocardiogram, no radiographic evidence of thrombus seen LV systolic function is normal with EF of 55 to 60%. ?Mild mitral annular calcification. ?Trace tricuspid regurgitation. ?No comparison studies are available Status: Acute (8) Acute hepatitis C: Status: Acute (9) COVID: Remdisivir 200mg iv x 1 followed by 100mg iv daily dexamethasone 6mg IVP daily duoneb q6h, budesonide q12h Continue Zosyn Flutter valve/spirometer at bedside trend inflammatory markers including CRP, D dimer CTA negative for PE, gross consolidation Status: Acute (10) Dehydration: Status: Acute (11) EDGARD (acute kidney injury): Cr 1.7, baseline not known at this time Continue to monitor Continue to monitor Status: Acute (12) Liver cirrhosis: incidentally discovered on CTA chest Elevted T .bili, elevated INR, thrombocytopenia H/o alcohol consumption+, hepatitis C positive Viral load ordered Status: Acute (13) Thrombocytopenia: May be related to acute viral illness vs chronic liver disease no bleeding currently Monitor for now Status: Acute (14) Hypoxia: related to covid 19, possible fluid overload after IVF resuscitation Lasix as above CTA negative for PE, pneumothorax, consolidation Status: Acute (15) Hepatic encephalopathy: Ammonia level improving continue to monitor Rifaximin Lactulose Status: Acute (16) Hypotension: Status: Acute (17) Altered mental status: -No corneal reflex, no gag, no cough, does not withdraw from pain, does not follow commands -Multifactorial from hypoxia secondary COVID-19, CVA, hepatic encephalopathy, polypharmacy, Keppra, Versed Plan: -Continue medical interventions -Continue to assess neurologic functions -Avoid Versed, avoid Keppra, avoid sedating medications -I have already discussed with Dr. Newell, once sitting medications have time to wear off, will assess functioning -EEG will be ordered within 48 hours -Monitor neurologic function, monitor for cerebral edema, monitor for fevers Status: Acute Plan alcohol withdrawal, CIWA Hypernatremia, serum sodium 151, continue to monitor 149 start IV fluids, gentle Elevated INR secondary to liver failure, check DIC panel Mottling bilateral lower extremities, DIC panel ordered, cryoglobulins ordered, hemolytic panel ordered Attestations Medical Necessity Statement*: Needs to be in hospital for management of above defined problems. Time Spent in Patient Care: Greater than 35 minutes (>than 50% of time spent in counselling and/or direct pt care on unit) . The high probability of a clinically significant, sudden or life threatening deterioration of the patient's [] system(s) required my full and direct attention, intervention and personal management. The critical care time is as shown. 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
[2021-07-23] MEDS: dextrose 5% 1,000 ML 75 ML IV (09:11)
--- NOTE | 2021-07-23 11:26 | PM.CONSULT ---
Providers/Reason For Consult Consulting Physician/Specialty*: Nephro Reason for Consult*: EDGARD Attending Physician: Eddy Miner MD History of Present Illness History of Present Illness Thank you for consult, today I had the pleasure of reviewing this unfortunate gentleman. He presented on 07/18 with increasing shortness of breath consistent with Covid pneumonitis, initial CTA demonstrated no evidence of pulmonary edema however it was seen in her liver cirrhosis. Over the next few days, he suffered a variety of complications, he was progressively more confused, central line was placed, he was initiated on vasopressor agents on 07/19, CT of the head demonstrated temporal lobe subacute infarction. He was subsequently intubated on 07/20 in the afternoon. Covered with broad-spectrum antibiotics including vancomycin/imipenem. Renal remains critically sick in the intensive care unit, very poorly responsive to stimuli. This is preventing any progression in terms of bring him off the ventilator. He remains on FiO2 70%, PEEP of 10. He has minimal edema. His blood pressure is soft, has been a transient for that he would need vasopressor agents, however, he does not need them at this time. No known history of acute or chronic kidney disease, on presentation creatinine was 1.4 dropping down to 1.0 and now increasing to 3.4. Urine output also decreasing now despite diuretics. Medications/Allergies Home Medications Medication Instructions Recorded Confirmed Last Taken Type acetaminophen 500 mg tablet 500 mg PO Q6H PRN 5 Days #20 tab 07/17/21 Unknown Rx calcium carbonate 1,000 1 tab PO TID PRN 7 Days #21 tab 07/17/21 Unknown Rx mg-simethicone 60 mg chewable tablet (Maalox Advanced) famotidine 20 mg tablet (Pepcid) 20 mg PO BID PRN 10 Days #20 tab 07/17/21 Unknown Rx ondansetron HCl 4 mg tablet 4 mg PO TID PRN 4 Days #12 tab 07/17/21 Unknown Rx (Zofran) Allergies Allergy/AdvReac Type Severity Reaction Status Date / Time No Known Allergies Allergy Verified 07/12/21 10:19 Current Medications Generic Name Dose Route Start Last Admin Trade Name Freq PRN Reason Stop Dose Admin Acetaminophen 650 mg 07/17/21 22:43 07/23/21 10:50 Acetaminophen 325 Mg Tablet PO 650 mg Q6H PRN Administration Mild/Mod Pain Or Temp >/= 101 Albuterol/Ipratropium 3 ml 07/18/21 03:00 07/23/21 08:08 Ipratropium-Albuterol 3 Ml Neb INHALATION 3 ml Q6H.RESPIRATORY BRIONNA Administration Aspirin 81 mg 07/19/21 17:45 07/23/21 08:18 Aspirin 81 Mg Ec Tablet PO 81 mg DAILY BRIONNA Administration Atorvastatin Calcium 40 mg 07/19/21 21:00 07/22/21 20:58 Atorvastatin 40 Mg Tablet PO 40 mg BEDTIME BRIONNA Administration Benzonatate 100 mg 07/17/21 22:43 07/18/21 08:36 Benzonatate 100 Mg Capsule PO 100 mg TID PRN Administration COUGH Dexamethasone 6 mg 07/18/21 20:00 07/22/21 20:58 Dexamethasone 4 Mg/Ml Inj IVP 6 mg Q24H BRIONNA Administration Folic Acid 1 mg 07/18/21 09:00 07/23/21 08:18 Folic Acid 1 Mg Tablet PO 1 mg DAILY BRIONNA Administration Guaifenesin 400 mg 07/18/21 01:45 07/18/21 01:56 Guaifenesin 100 Mg/5 Ml Udc 10 Ml PO 400 mg Q4H PRN Administration COUGH Diltiazem HCl 125 mg/ Sodium 125 mls @ 0 mls/hr 07/18/21 12:00 07/18/21 21:30 Chloride IV 0 mg/hr .Q0M BRIONNA 0 mls/hr Titration Protocol Per Protocol Norepinephrine Bitartrate 4 mg 254 mls @ 0 mls/hr 07/19/21 09:15 07/21/21 03:05 / Dextrose IV 0 mcg/min .Q0M BRIONNA 0 mls/hr Titration Protocol Per Protocol dexmedeTOMIDine 0.9 % NaCL 400 mcg in 100 mls @ 0 mls/hr 07/19/21 11:15 07/23/21 09:35 Precedex IV 0.7 mcg/kg/hr .Q0M BRIONNA 15.49 mls/hr Administration Protocol Per Protocol Albumin Human 25 gm in 100 mls @ 60 mls/hr 07/20/21 08:30 07/23/21 10:13 Albumin IV Infused Q8H BRIONNA Infusion Midazolam HCl 100 mg/ Sodium 100 mls @ 0 mls/hr 07/20/21 12:45 07/22/21 21:24 Chloride IV Infused .Q0M BRIONNA Titration Protocol Per Protocol Fentanyl 2,500 mcg/ Sodium 250 mls @ 0 mls/hr 07/20/21 12:45 07/22/21 19:10 Chloride IV 50 mcg/hr .Q0M BRIONNA 5 mls/hr Titration Protocol Per Protocol Levetiracetam 1,000 mg/ Sodium 110 mls @ 440 mls/hr 07/22/21 03:30 07/22/21 16:24 Chloride IV Not Given Q12H BRIONNA Dextrose 1,000 mls @ 75 mls/hr 07/23/21 08:30 07/23/21 09:11 D5w IV 75 mls/hr .[id number] BRIONNA Administration Lactulose 10 gm 07/17/21 23:00 07/23/21 10:50 Lactulose Oral Liq 20 Gm/30 Ml Udc PO 10 gm Q6H BRIONNA Administration Protocol Lanolin 1 applic 07/19/21 14:02 07/19/21 14:38 Lanolin Oint 7 Gm TOPICAL 1 appful PRN PRN Administration DRYNESS Lorazepam 1 mg 07/19/21 15:36 07/20/21 10:50 Lorazepam 2 Mg/Ml Inj 1 Ml IVP 1 mg PRN PRN Administration WITHDRAWAL Protocol Midodrine 10 mg 07/19/21 09:30 07/23/21 08:18 Midodrine 5 Mg Tablet PO 10 mg Q6H BRIONNA Administration Multivitamins Therapeutic 1 tab 07/18/21 09:00 07/23/21 08:18 Multivitamin Therapeutic Tablet PO 1 tab DAILY BRIONNA Administration Pantoprazole Sodium 40 mg 07/21/21 08:00 07/23/21 07:36 Pantoprazole 40 Mg Sdv IVP 40 mg Q24H BRIONNA Administration Rifaximin 550 mg 07/19/21 18:00 07/23/21 08:18 Rifaximin 550 Mg Tablet PO 550 mg BID BRIONNA Administration Protocol Thiamine HCl 100 mg 07/20/21 09:00 07/23/21 08:18 Thiamine 100 Mg/Ml Sdv IVP 100 mg DAILY BRIONNA Administration PFSH Acute PFSH: Medical History COVID Social History Smoking and tobacco status: current every day smoker Alcohol intake: never Substance/Drug Use: never Vitals/I&O/Wt Last Vital Signs Temp 99.1 F 07/23/21 08:00 Pulse 97 07/23/21 09:30 Resp 18 07/23/21 09:39 BP 102/61 07/23/21 09:30 Pulse Ox 94 07/23/21 09:39 07/22/21 07/23/21 07/23/21 22:59 06:59 14:59 Intake Total 540.25 / 1256.328 801 / 2057.328 539.584 / 539.584 Output Total 935 / 935 230 / 1165 Balance -394.75 / 321.328 571 / 892.328 539.584 / 539.584 Weight last 48 hrs Weight 81.737 kg Weight 80.876 kg Physical Exam Narrative: Constitutional: Sedated and vented HEENT: Wet mucosa, no jvp, non icteric Lungs: Bilaterally poor air entry CVS: S1 S2, no murmurs Abdo: Soft, BS ok Ext 4: Minimal edema, peripheral perfusion with no cyanosis Neurological: No response to noxious stimuli Urinary Catheter Management: Bartlett: Cath Placed During This Visit: yes Reason for Continuing Indwelling Catheter: Accurate Measurement of Urinary Output in Critically Ill Patients Urinary Catheter Date of Insertion: 07/18/21 Urinary Catheter Time of Insertion: 12:24 Data : 07/23/21 03:58 07/23/21 03:58 Micro: Microbiology 07/21/21 21:50 Blood Culture - Preliminary Blood NEGATIVE TO DATE 07/21/21 21:47 Blood Culture - Preliminary Blood NEGATIVE TO DATE 07/20/21 14:00 Fungal Smear - Preliminary Sputum - Endotracheal Wash 07/20/21 14:00 Gram Stain - Final Lung Right Middle Lobe Bronchoalveolar Lavage Culture - Final A&P Assessment and plan (1) Renal failure: 1. Acute renal failure He has what is likely multifactorial acute renal failure, predominantly secondary to complications of Covid, hemodynamic instability, infection/inflammation mediated acute tubular injury, possible contrast nephropathy, possible AIN secondary to antibiotics. The big question is whether he has some degree of uremic encephalopathy, which is the only possible answer is to provide dialysis, bring down his uremic milieu and monitor his neurological response. I did discuss this with his sister today, and although she does not want him to receive long-term hemodialysis, they are willing to undergo a trial of dialysis to see if this helps him cognitively to come off the ventilator. If we do not make any neurological progress, will stop treatments. I plan to do dialysis today, and Wednesday at which time we should see neurological improvement if it is going to happen. We will send additional testing to include renal sonogram, repeat urinalysis with fractional excretion of sodium Avoid usual nephrotoxic agents Strict I's and O's Dose medication for GFR less than 15 2. Chemistry Hyponatremia is noted, currently on D5W, on free water flushes. Increase this to 200 every 4 Other chemistry looks mildly aberrant. Phosphorus noted to be elevated at 9.8 but this is noncritical. 3. Vent dependent respiratory failure Management per ICU team, weaning as tolerated over the next few days if possible. 4. Covid pneumonitis The dependent respiratory failure as described above Status post remdesivir, Decadron Broad-spectrum antibiotic coverage 5. CVA Currently no corneal reflex, no gag, no cough, does not withdraw from pain. Management per medical team. Case discussed with numerous team members, sister, bedside RN. Thank you for consultation, as always a pleasure to follow these cases with you Hira Leon MD Nephrology [phone] Patient seen and examined via telemedicine, with the assistance of the bedside RN > 25 min spent in evaluation and mgmt of patient Status: Acute Coding Level of Care Code Acute Marketing Production Coordinator for [facility] Diagnoses Renal failure N19
--- NOTE | 2021-07-23 12:04 | PC.CHAP ---
Pastoral Care Encounter/Spiritual Assessment Type of Contact [] Declined cattle alley worker visit [] Patient/Family/Request visit [] Outpatient visit [] Follow-up visit [] Physician referral [] Code/Alert [x] Routine visit [] Staff referral [] Actively dying [] Patient sleeping [x] Family support [] [] Out of room [] Palliative care [] [] Receiving care in room [] Pre-surgical visit [] Trauma [] Long length of stay [x] ICU visit [x] Other: vent... large family present.. decisions to be made regarding care Relational/Emotional Strength [] Patient feels connected with others/family/visitors/staff [] Distress [] Loneliness/isolation [] Abandonment Spirituality of Patient [] Person of Merly [] Attends Confucianist of their Merly [] Believes in Prayer [] Reads Bible or Holiness materials [] There are Spiritual issues to be addressed Inspector Repairer [place]stone Interventions [x] Prayer [] Active listening [] Non-anxious presence [] Spiritual/emotional support [] Crisis/trauma care [] Spiritual counseling [] Bereavement support [] Provided bereavement packet [] Provided Bible/devotional materials [] Provided toy/stuffed animal, coloring book to patient or family member [] Provided Communion [] Anointing/Koloa [] Salvation [x] Completed spiritual assessment [] Other: Impact on Illness or Injury [] Angry [] Fearful [] Anxious [] Often cries [] Exhaustion [] Unable to work [] Unable to attend taoist [] Unable to walk/stand [] Unable to read [] Unable to drive [] Unable to eat/drink [] Unable to sleep [] Unable to be with family [] Patient intubated [] Other: Summary Time spent with patient
[2021-07-23] MEDS: metoprolol tartrate 1 mg/1 mL SDV 5 mL 5 MG IVP (14:04)
[2021-07-23] MEDS: enoxaparin 30 mg/0.3 mL Syringe SUBCUT (16:04)
[2021-07-23 16:44] LABS: Add Urine Microscopic? YES; Bilirubin Urine 1+ (Negative); Blood Urine Trace (Negative); Glucose Urine UA Norm (Normal); Ketones Urine 1+ (Negative); Leukocyte Esterase Urine Negative (Negative); Nitrate Urine Negative (Negative); Protein Urine Trace (Negative); Urine Appearance Cloudy (CLEAR); Urine Color Yellow (Yellow); Urobilinogen Urine 1 mg/dL (Negative); pH Urine 5 (5-7)
[2021-07-23 16:45] LABS: Bacteria Urine 1+ /hpf; Creatinine Urine, Random 107 mg/dL (39-259); RBC Urine 0-4 /hpf (0-2); Squamous Epithelial Cell Urine RARE /hpf (0-5)
--- NOTE | 2021-07-23 17:19 | PM.DIACAT ---
Procedure Note: Date of procedure: 07/23/21 Pre-op diagnosis: ARF Post-op diagnosis: same Procedure Performed: femoral dialysis catheter (1.Placement of 12 Afghan temporary dialysis catheter 20 cm length, right femoral vein.2. Ultrasound-guided placement of temporary dialysis catheter) Procedure: Medications were reviewed to assess for anticoagulant uses. Risk and benefits and prevention of central line in association bloodstream infection were discussed with the next of kin and consent was obtained. Patient was on monitor all the time. All necessary supplies were available prior to starting the process. Hand hygiene was completed prior to starting. Maximum barrier technique was utilized including a sterile gown sterile gloves with a hat and mask. Site was prepped with chlorhexidine and full body drape was placed. 5 mL of 2% lidocaine was injected into the skin with 25 g needle. Ultrasound examination of both groins were done for appropriate site identification, femoral vein was chosen. Right femoral stick was done under ultrasound guidance, nonpulsatile venous blood was obtained on the first stick.No no thrombosis was identified prior to taking the stick. A guidewire was then threaded at the point the guidewire was secured to the drapes with a hemostat and the needle was taken out followed by the serial dilators, the dilator was then taken out, Guidewire continued was continued to be maintained in good position and the hemodialysis catheter 12 Afghan was introduced onto the guidewire with the venous and arterial hubs were flushed and retrieved venous blood without difficulty the catheter was secured to the skin using 3-0 silk and a Biopatch was applied. Hep-locks were then applied. Patient tolerated the procedure well. It was very kind of his nurse Mr. Moses, to be of great help during the entire procedure. Anesthesia: other Coding Level of Care Code Acute Integrated Logistics Operations Manager for Jethro Hernandez
--- NOTE | 2021-07-23 17:37 | PC.HD ---
Upon initiation of treatment, patient went into AFib almost immediately and dropped his BP to 70s systolic. Dr. Miner was at bedside at this time. Patient received Metoprolol IV push and was started on a Levophed drip. Patient's heart rate dropped from the 150s-160s to the 100s-110s, and BP remained soft, but MAP was maintained >65. UF goal was zero; however, due to patient's instability, this RN was unable to remove the prime load of fluid (300 mL), so patient had a net gain of 284 mL.
[2021-07-23 17:38] LABS: Urine Random Sodium 10 mmol/L
--- NOTE | 2021-07-23 18:04 | PC.NURSE ---
Pt family had conference with alterations sewer and MD. Decision made to insert dialysis catheter and dialyze pt. Dialysis catheter placed by MD at bedside. Tolerated well. Small amount of oozing requiring dressing change and sandbag. Bleeding stopped. 1400 Dialysis started. Pt in afib with rates in 170's. IV metoprolol given, amio bolus given and then amio gtt started. Levophed initiated d/t low bp. 1800 Hr normalized, bp remains slightly low, levophed infusing at 5mcg, amio and 1mg/min, fentanyl at 50mcg and precedex at 0.7mcg/kg/hr per orders. Pt has been febrile all day requiring cooling blanket and ice packs. Ice packs replaced at this time d/t temp 100.6 orally. Pt repositioned, oral care performed q2h and PRN. Will monitor.
--- NOTE | 2021-07-23 18:34 | P.CONIM_ITS ---
Providers/Reason For Consult Consulting Physician/Specialty*: Dr. Estrada Reason for Consult*: Stroke and progressive neurologic dysfunction Requesting Physician: Dr. Estrada Attending Physician: Eddy Miner MD History of Present Illness History of Present Illness Luis Gutierrez is a 66 year old male with a history of hepatitis C and alcoholism. He has been a heavy smoker. His only prior contact with the clinics here was on 07/12/2021 when he came in to [facility] complaining of leg pain for 3 days with cramping aggravated by walking. He revealed at that time that his was sick with something and went to [place]. He wanted to establish care locally. He had already tested positive for Covid last year in December but then he came to our emergency department 07/17/2021 with shortness of breath, fever and generalized weakness for 5 days. He was hypotensive with a b lood pressure of 80/40 and hypoxic. In the course of working up his hypoxia he had CT angiogram (negative for PE) but was found to have cirrhosis complicated by an albumin of 2.5. The patient was speaking and able to communicate in the emergency department but his ammonia level was 70. He is normally a heavy drinker, and that was confirmed by his His hypoxia was found to be due to COVID. He was able to visit with Dr. Berkowitz for his history and physical and despite his stroke he had no focal neurologic deficit. He was alert and oriented when he saw Dr. Cabrales on 07/18 and he wanted to go home. He was in atrial fibrillation with RVR but his blood pressure was better. He was kept for another day due to suspicion of alcohol withdrawal and became increasingly more encephalopathic. His blood pressure fell. He had right upper lobe pneumonia and acute renal failure in addition to his liver disease. His mental status continued to deteriorate and on 07/20 CT of the head and CTA were performed and he had a left temporal region of low density suggesting a subacute infarct with negative CTA. He did not have intracranial or extracranial stenosis. For some reason the stroke team was activated over the weekend even though this was not an acute event. The [facility] stroke team advised medical management. The cause was presumed to be atrial fibrillation. Dr. Estrada called me and I reviewed that CAT scan and CTA the day before yesterday at his request and I agree that he had a left middle cerebral posterior branch stroke of recent onset. I agree that the patient should be managed medically. Dr. Cabrales called me yesterday and said that his mental status had deteriorated. I attempted to get up to see the patient but was unable due to office commitments until today. There are multiple reports on the chart that the patient has had no corneal response, no response to pain for the last 48 hours. The family has been in a position of asking for continued life support while wanting to make the right decision. His Sister Brenda is in charge of gathering the family and helping to make decisions. It is her desire not to persist with life saving and life preserving measures if the chance of meaningful neurologic recovery is slim. Based upon what she understands from Dr. Miner and Dr. Cabrales, she has been prepared to change to comfort care. I talked with her after evaluating the patient. I gave her a chance to ask questions. The patient's is on hospice at a hospital in [place]. Review of Systems General: Reports: ROS unobtainable due to medical condition and Other (Everything of significance mentioned in the HPI) Medications/Allergies Home Medications Medication Instructions Recorded Confirmed Last Taken Type acetaminophen 500 mg tablet 500 mg PO Q6H PRN 5 Days #20 tab 07/17/21 Unknown Rx calcium carbonate 1,000 1 tab PO TID PRN 7 Days #21 tab 07/17/21 Unknown Rx mg-simethicone 60 mg chewable tablet (Maalox Advanced) famotidine 20 mg tablet (Pepcid) 20 mg PO BID PRN 10 Days #20 tab 07/17/21 Unknown Rx ondansetron HCl 4 mg tablet 4 mg PO TID PRN 4 Days #12 tab 07/17/21 Unknown Rx (Zofran) Allergies Allergy/AdvReac Type Severity Reaction Status Date / Time No Known Allergies Allergy Verified 07/12/21 10:19 Current Medications Generic Name Dose Route Start Last Admin Trade Name Freq PRN Reason Stop Dose Admin Acetaminophen 650 mg 07/17/21 22:43 07/23/21 10:50 Acetaminophen 325 Mg Tablet PO 650 mg Q6H PRN Administration Mild/Mod Pain Or Temp >/= 101 Albuterol/Ipratropium 3 ml 07/18/21 03:00 07/23/21 14:01 Ipratropium-Albuterol 3 Ml Neb INHALATION 3 ml Q6H.RESPIRATORY BRIONNA Administration Aspirin 81 mg 07/19/21 17:45 07/23/21 08:18 Aspirin 81 Mg Ec Tablet PO 81 mg DAILY BRIONNA Administration Atorvastatin Calcium 40 mg 07/19/21 21:00 07/22/21 20:58 Atorvastatin 40 Mg Tablet PO 40 mg BEDTIME BRIONNA Administration Benzonatate 100 mg 07/17/21 22:43 07/18/21 08:36 Benzonatate 100 Mg Capsule PO 100 mg TID PRN Administration COUGH Dexamethasone 6 mg 07/18/21 20:00 07/22/21 20:58 Dexamethasone 4 Mg/Ml Inj IVP 6 mg Q24H BRIONNA Administration Enoxaparin Sodium 30 mg 07/23/21 17:00 07/23/21 16:04 Enoxaparin 30 Mg/0.3 Ml Syringe SUBCUT 30 mg Q24H BRIONNA Administration Folic Acid 1 mg 07/18/21 09:00 07/23/21 08:18 Folic Acid 1 Mg Tablet PO 1 mg DAILY BRIONNA Administration Guaifenesin 400 mg 07/18/21 01:45 07/18/21 01:56 Guaifenesin 100 Mg/5 Ml Udc 10 Ml PO 400 mg Q4H PRN Administration COUGH Norepinephrine Bitartrate 4 mg 254 mls @ 0 mls/hr 07/19/21 09:15 07/23/21 14:24 / Dextrose IV 5 mcg/min .Q0M BRIONNA 19.05 mls/hr Administration Protocol Per Protocol dexmedeTOMIDine 0.9 % NaCL 400 mcg in 100 mls @ 0 mls/hr 07/19/21 11:15 07/23/21 15:37 Precedex IV 0.7 mcg/kg/hr .Q0M BRIONNA 15.49 mls/hr Administration Protocol Per Protocol Albumin Human 25 gm in 100 mls @ 60 mls/hr 07/20/21 08:30 07/23/21 17:34 Albumin IV Infused Q8H BRIONNA Infusion Midazolam HCl 100 mg/ Sodium 100 mls @ 0 mls/hr 07/20/21 12:45 07/22/21 21:24 Chloride IV Infused .Q0M BRIONNA Titration Protocol Per Protocol Fentanyl 2,500 mcg/ Sodium 250 mls @ 0 mls/hr 07/20/21 12:45 07/22/21 19:10 Chloride IV 50 mcg/hr .Q0M BRIONNA 5 mls/hr Titration Protocol Per Protocol Levetiracetam 1,000 mg/ Sodium 110 mls @ 440 mls/hr 07/22/21 03:30 07/22/21 16:24 Chloride IV Not Given Q12H BRIONNA Dextrose 1,000 mls @ 75 mls/hr 07/23/21 08:30 07/23/21 14:11 D5w IV 0 mls/hr .[id number] BRIONNA Infusion Imipenem/Cilastatin Sodium 250 100 mls @ 200 mls/hr 07/23/21 12:00 07/23/21 17:51 mg/ Sodium Chloride IV 200 mls/hr Q6H BRIONNA Administration Amiodarone HCl 900 mg/ 518 mls @ 0 mls/hr 07/23/21 14:30 07/23/21 14:29 Dextrose/ IV Miscellaneous IV 1 mg/min Supplies .Q0M BRIONNA 34.53 mls/hr Administration Protocol Per Protocol Lactulose 10 gm 07/17/21 23:00 07/23/21 16:04 Lactulose Oral Liq 20 Gm/30 Ml Udc PO 10 gm Q6H BRIONNA Administration Protocol Lanolin 1 applic 07/19/21 14:02 07/19/21 14:38 Lanolin Oint 7 Gm TOPICAL 1 appful PRN PRN Administration DRYNESS Midodrine 10 mg 07/19/21 09:30 07/23/21 15:32 Midodrine 5 Mg Tablet PO 10 mg Q6H BRIONNA Administration Multivitamins Therapeutic 1 tab 07/18/21 09:00 07/23/21 08:18 Multivitamin Therapeutic Tablet PO 1 tab DAILY BRIONNA Administration Pantoprazole Sodium 40 mg 07/21/21 08:00 07/23/21 07:36 Pantoprazole 40 Mg Sdv IVP 40 mg Q24H BRIONNA Administration Rifaximin 550 mg 07/19/21 18:00 07/23/21 17:51 Rifaximin 550 Mg Tablet PO 550 mg BID BRIONNA Administration Protocol Thiamine HCl 100 mg 07/20/21 09:00 07/23/21 08:18 Thiamine 100 Mg/Ml Sdv IVP 100 mg DAILY BRIONNA Administration PFSH Acute PFSH: Medical History COVID Social History Smoking and tobacco status: current every day smoker Alcohol intake: never Substance/Drug Use: never Vitals/I&O/Wt Last Vital Signs Temp 98.1 F 07/23/21 17:35 Pulse 108 H 07/23/21 17:35 Resp 16 07/23/21 18:06 BP 92/72 07/23/21 17:35 Pulse Ox 92 07/23/21 18:06 07/23/21 07/23/21 07/23/21 06:59 14:59 22:59 Intake Total 801 / 2057.328 1117.584 / 9077.109 2800.456 / 2421.040 Output Total 230 / 1165 Balance 571 / 586.997 8255.584 / 4552.483 8816.456 / 2405.040 Weight last 48 hrs Weight 212 lb 8.41 oz Weight 180 lb 3.2 oz Weight 178 lb 4.8 oz Physical Exam Narrative: General: Thin gentleman looking older than his age, intubated in ICU. Mental status exam: No response to deep nailbed stimulation. He is breathing over the ventilator. Cranial nerves: Pupils midposition and fixed. 2 mm of anisocoria. Corneal responses were absent bilaterally. Oculocephalic movements absent. No facial grimace to brow pressure. No gag reflex to movement of the endotracheal tube. Reflexes diffusely absent. Plantar response neither flexor nor extensor. Sensorimotor: No response to deep nailbed pressure. Urinary Catheter Management: Bartlett: Cath Placed During This Visit: yes Reason for Continuing Indwelling Catheter: Accurate Measurement of Urinary Output in Critically Ill Patients Urinary Catheter Date of Insertion: 07/18/21 Urinary Catheter Time of Insertion: 12:24 Data : 07/23/21 03:58 07/23/21 03:58 Micro: Microbiology 07/18/21 12:32 Blood Culture - Final Blood NO GROWTH AFTER 5 DAYS 07/18/21 12:27 Blood Culture - Final Blood NO GROWTH AFTER 5 DAYS 07/21/21 21:50 Blood Culture - Preliminary Blood NEGATIVE TO DATE 07/21/21 21:47 Blood Culture - Preliminary Blood NEGATIVE TO DATE 07/20/21 14:00 Fungal Smear - Preliminary Sputum - Endotracheal Wash Other data: MCV was markedly elevated on arrival and progressively higher throughout the stay. Pro time elevated to 2.16 consistent with hepatic failure. Progressive kidney dysfunction with current creatinine 3.4 and progressive increase over the course of hospitalization. Liver enzymes not elevated. Ammonia level 50. A&P Assessment and plan (1) Anoxic brain damage syndrome: Progressive neurologic dysfunction despite aggressive measures of life support for this unfortunate middle-aged alcoholic. Presumably his left middle cerebral artery stroke was related to atrial fibrillation combined with hypercoagulability from Covid. He is now showing dysfunction at the brainstem level with lack of oculocephalic movements and corneal responses. This could be due to multifocal ischemia in the brainstem which we cannot visualize on CAT scan. Whether this profound dysfunction is from ischemic brainstem injury or anoxic brain injury this is not likely to be a reversible process. His prognosis is dismal in consideration of absent corneal reflexes and oculocephalic movements with no response to pain. My recommendation is for compassionate comfort care. I shared this with his [id number]-wnj. She will talk with Dr. Miner and make decisions in the morning. Status: Acute (2) Acute CVA (cerebrovascular accident): Acute left middle cerebral artery posterior branch stroke probably secondary to atrial fibrillation. Status: Acute (3) Alcohol withdrawal: Hepatitis C and acute alcohol withdrawal with liver dysfunction evidenced by progressive elevation of his pro time. Hepatorenal syndrome with progressive kidney failure. Status: Acute (4) Sepsis: Acute Covid infection with pneumonia and sepsis. Progressive multi system failure. Status: Acute (5) Acute hepatitis C: Status: Acute (6) Atrial fibrillation with RVR: Status: Acute (7) Liver cirrhosis: Status: Acute (8) EDGARD (acute kidney injury): Status: Acute (9) COVID: Status: Acute Consult Attestations Medical Necessity Statement: Profoundly ill requiring intensive care and life support. Time Spent in Patient Care: More than 60 minutes including chart review, previous review of CAT scans, examination of the patient and conference with the patient's [id number] by phone. 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
[2021-07-23] MEDS: dexamethasone 4 mg/mL INJ 6 MG IVP (21:06)
[2021-07-23] MEDS: atorvastatin 40 mg Tablet PO (21:07)
[2021-07-23] MEDS: metoprolol tartrate 1 mg/1 mL SDV 5 mL 2.5 MG IVP (21:46)
[2021-07-23] MEDS: sodium chloride 0.9% 500 ML 999 ML IV ×2 (22:55→23:26)
[2021-07-24] VITALS (25 sets, daily range): BP systolic 82–118; BP diastolic 56–85; PULSE 0–137; RESP 0–29; TEMP 37.3–37.7; O2SAT 85–98
[2021-07-24 04:15] LABS: Basophils % 0.2 %; Hematocrit 32.3 % (42.0-52.0); Hemoglobin 10.2 g/dL (11.7-16.6); Lymphocytes # 0.3 10^3/uL (0.8-4.8); Lymphocytes % 2.6 %; Mean Corpuscular HGB Conc 31.6 g/dL (30.0-36.0); Mean Corpuscular Hemoglobin 33.3 pg (28.0-34.0); Mean Corpuscular Volume 105.6 fl (80-94); Mean Platelet Volume 11.8 fL (7.4-10.4); Monocytes # 0.4 10^3/uL (0.2-0.9); Monocytes % 3.7 %; Neutrophils # 9.14 10^3/uL (1.8-7.7); Neutrophils % 92.7 %; Nucleated Red Blood Cells % 0.4 %; Platelet Count 86 10^3/cmm (130-400); Red Blood Count 3.06 10^6/uL (4.1-5.3); Red Cell Distribution Width 19.5 % (12.1-15.1); White Blood Count 9.9 10^3/uL (4.0-10.0)
[2021-07-24] MEDS: metoprolol tartrate 1 mg/1 mL SDV 5 mL 5 MG IVP (04:17)
[2021-07-24] MEDS: midodrine 5 mg TABLET 10 MG PO (04:17)
[2021-07-24 04:25] LABS: INR 2.34 (0.8-1.2)
[2021-07-24 04:32] LABS: Lactate (Lactic Acid level) 1.6 mmol/L (0.5-2.2)
[2021-07-24] MEDS: dexmedeTOMIDine 0.9 % NaCL 400 MCG/100 ML PREMIX 15.49 MCG IV (04:40)
[2021-07-24 04:41] LABS: Alanine Aminotransferase 8 U/L (0-41); Albumin Level 4.7 g/dL (3.5-5.2); Alkaline Phosphatase 27 IU/L (40-130); Aspartate Amino Transferase 45 U/L (0-40); C Reactive Protein 7.3 mg/L (0.0-4.9); Calcium 7.5 mg/dL (8.5-10.5); Carbon Dioxide 20 mmol/L (22-29); Chloride 105 mmol/L (98-107); Globulin 2.2 g/dL (1.3-4.6); Glomerular Filtration Rate 12.6 mL/min (90-130); Glucose 164 mg/dL (65-115); Magnesium 2.7 mg/dL (1.7-2.3); Osmolality Calculated 327 mOsm/kg (285-295); Sodium 143 mmol/L (136-145); Total Bilirubin 3.2 mg/dL (0.15-1.2); Total Protein 6.9 g/dL (6.6-8.7)
[2021-07-24 04:48] LABS: NT Pro B Type Natriuretic Pept 24339 pg/mL (0-125); Procalcitonin 0.79 ng/mL (0-0.5)
--- NOTE | 2021-07-24 05:04 | PC.NURSE ---
At 0330, pt noted to have increased oxygen demand. Pt remains tachycardic. Dr. Mcnally notified. Orders received. Christian, thick sputum suctioned from ETT. Assessment otherwise unchanged. At 0331, pt noted to have increased work of breathing and increased oxygen demand. Dr. Mcnally notified. Orders given to RT to titrate PEEP to keep sats 88%. Pt's sister and son notified of pt's change in condition at 0430. Pt's sister, son, and daughter in law at bedside at 0500. Informed this nurse that they wish to terminally extubate and begin comfort care. Dr. Mcnally notified. He will come to see patient's family.
[2021-07-24 05:07] LABS: Blood Urea Nitrogen 89 mg/dL (8-23); Creatine Phosphokinase 412 U/L (39-308); Phosphorus 8.9 mg/dL (2.5-4.5)
--- NOTE | 2021-07-24 05:16 | PC.NURSE ---
Family at bedside awaiting Dr. Mcnally. Pt will be placed on comfort care.
--- NOTE | 2021-07-24 06:22 | W.PM.EVENTAC ---
Event Note Event Note: Mr. Gutierrez had a difficult night. Oxygen requirements increased. He continues on low rate pressor. Persistent tachycardia with poor response to metoprolol, amiodarone drip. Additional dose of metoprolol was requested. Family came to see him early this morning including his sister, son. They did not want to continue further aggressive care, stating they have discussed with other family, with consensus to commence preparations for terminal extubation and comfort care alone. Hqylxtkf-ya-leb would like to visit with him to say her goodbyes. They are also requesting for lab director to see him. Arrangements are underway for this and for comfort measures.
--- NOTE | 2021-07-24 06:26 | PC.NURSE ---
Family at bedside. Pastoral care has been notified of request for prayer. Awaiting pastoral care before initiating comfort care. Daughter in law did go into room to see patient. She was provided full PPE, and performed appropriate hand hygiene before and after entering room.
[2021-07-24] MEDS: morphine 4 mg/mL SDV 1 mL 2 MG IVP ×3 (07:46→08:52)
[2021-07-24] MEDS: ipratropium-albuterol 3 mL Neb INHALATION (08:05)
[2021-07-24] MEDS: LORazepam 2 mg/mL INJ 1 mL 1 MG IVP (08:35)
--- NOTE | 2021-07-24 09:01 | PC.NURSE ---
Pt extubated to [place] per family wishes and MD order. All gtts stopped. Morphine and ativan given per orders. Family at door. 0858 Pt asystole with no respirations noted. MD notified.
--- NOTE | 2021-07-24 10:15 | PC.NURSE ---
1010 body released to [facility]. Phone and watch given to family.
--- NOTE | 2021-07-24 10:26 | PC.NURSE ---
wasted 227ml with ELIZABETH JOHNSON
--- NOTE | 2021-07-24 16:48 | P.DES_ITS ---
Discharge Providers DDS Date of Admission: 07/17/21 22:43 Date Summary Completed: 07/26/21 Attending Provider at Admission: Arielle Berkoiwtz MD Time of : 08:58 Attending Provider at Discharge: Eddy Miner MD DS Diagnoses Hospital Diagnoses (1) Anoxic brain damage syndrome: (2) Acute CVA (cerebrovascular accident): (3) Alcohol withdrawal: (4) Sepsis: (5) Acute hepatitis C: (6) Atrial fibrillation with RVR: (7) Liver cirrhosis: (8) EDGARD (acute kidney injury): (9) COVID: Permanent Problem Comments: Positive Covid test 07/12/2021. Reason for Visit Reason for Visit covid positive Summary Date and Time of Date of : 07/24/21 Time of : 08:58 Summary Summary: 66-year-old male with no known past medical history alcoholism, liver cirrhosis, secondary to alcoholism as well as hep C, presented to the hospital with Generalized fatigue , cough , malaise , shortness of breath, poor oral intake, was diagnosed with COVID-19 5 days back prior to the admission. He was admitted for the management of Covid pneumonia.He was initially admitted for the management of Covid pneumonia, was kept on Covid protocol,Received remdesivir , dexamethasone , was empirically kept on antibiotics other conservative r espiratory management, had a complicated hospital course, went into acute hypoxic respiratory failure secondary to Covid pneumonia , possible aspiration resulting in intubation and placement on mechanical ventilation,Patient developed, septic shock secondary to pneumonia, atrial fibrillation with RVR, acute CVA, acute renal failure, patient was managed for these conditions, underwent multiple imaging studies, he was given placed on dialysis, while continuing, management for septic shock, Ac CVA ( left middle cerebral artery stroke ) hepatitis C infection , liver cirrhosis, thrombocytopenia, anoxic brain injury, Patient did not responded to above aggressive management. Multiple sub specialty services were on board, including, accountant controller, procurement professional logistics, neurologist.Family understood the poor prognosis of the patient, and decided to terminally extubate the patient.Patient was terminally extubated on 07/24/2021. He at 8:58 am. Pertinent imaging studies done during the hospital stay: CT angio chest PE protcl?: 1. No evidence for pulmonary embolus.? Evaluation of the smaller arteries is limited by significant breathing motion artifact. No acute pulmonary finding. Liver cirrhosis with portal venous hypertension. Splenomegaly.?Minimal scattered atelectasis in both lungs. No consolidation. US liver: ?Moderate hepatomegaly with changes of cirrhosis. US abdomen limited?: Ventral hernia, fat filled. ? CV venous duplex LE BI?: ?No evidence of right lower extremity DVT. CT Head Without Contrast: Focal area of hypoattenuation measuring 5.0 x 2.7 cm within the left temporal lobe which most resembles a subacute infarct. CT angio headneck: 1. Irregular area of low density in the left temporal lobe with loss of garcia-white matter differentiation consistent with a subacute infarct. No significant stenosis nor large vessel occlusion. US Duplex Bilateral Extracranial Arteries:No definite arterial stenosis involving the visualized carotid arteries. 2D echo: LV systolic function is normal with EF of 55 to 60%. Mild mitral annular calcification. Trace tricuspid regurgitation. Cultures remained negative Additional Data Was code activated?: No Autopsy requested?: No Advance directives?: No Hospice patient?: No Discharge Plan Discharge Patient Disposition: Condition: Discharge Diet: Advance as tolerated Discharge Activity: Increase activity as tolerated Patient Instructions: COVID-19 (Coronavirus Disease 2019) (ED), Opioid Safety Activity Restrictions/Additional Instructions: Come back to the emergency room if your symptoms worsen, have any shortness of breath, fever/chills, dehydration, inability tolerate food or drinks, any difficulty breathing, or any new or concerning complaints. Please return the emergency room if your pulse ox reads less than 88%. DS Attestations Time Spent in /Discharge Care*: greater than 30 min Quality - AMI: AMI present?: No Quality - Stroke: CVA present?: No Quality - VTE: VTE present?: No Coding Level of Care Code Acute Schedule Hanger for Chg Fwd Diagnoses Anoxic brain damage syndrome G93.1 Acute CVA (cerebrovascular accident) I63.9 Alcohol withdrawal F10.239 Sepsis A41.9 Acute hepatitis C B17.10 Atrial fibrillation with RVR I48.91 Liver cirrhosis K74.60 EDGARD (acute kidney injury) N17.9 COVID U07.1
[2021-07-29 16:49] LABS: Cryoglobulins Qualitative None Detected (None Detected)
== END 2021-07-24 10:23 | disposition expired | DRG 208 ==
LOC: ER 16:11 → ICU 22:16
PROVIDERS: Family Medicine; Internal Medicine; Internal Medicine Nephrology; Internal Medicine Pulmonary Disease; Admitting Provider Student in an Organized Health Care Education/Training Program; Emergency Provider Emergency Medicine; Visit Provider Internal Medicine
DX: U07.1 COVID-19 (principal); A41.9 Sepsis, unspecified organism; R65.21 Severe sepsis with septic shock; J12.82 Pneumonia due to coronavirus disease 2019; I63.512 Cerebral infarction due to unspecified occlusion or stenosis of left middle cerebral artery; J96.21 Acute and chronic respiratory failure with hypoxia; J69.0 Pneumonitis due to inhalation of food and vomit; B17.10 Acute hepatitis C without hepatic coma; K76.6 Portal hypertension; N17.9 Acute kidney failure, unspecified; G93.1 Anoxic brain damage, not elsewhere classified; E87.1 Hypo-osmolality and hyponatremia; R47.01 Aphasia; F17.210 Nicotine dependence, cigarettes, uncomplicated; I95.9 Hypotension, unspecified; K70.30 Alcoholic cirrhosis of liver without ascites; F10.20 Alcohol dependence, uncomplicated; E86.0 Dehydration; D69.59 Other secondary thrombocytopenia; I48.91 Unspecified atrial fibrillation; Z51.5 Encounter for palliative care; Z86.16 Personal history of COVID-19; E87.6 Hypokalemia
CPT/HCPCS: 36415; 36416; 36592; 36600; 51702; 70450; 70496; 70498; 71045; 71275; 74018; 76705; 80051; 80053; 80307; 80500; 81001; 81003; 82140; 82247; 82248; 82330; 82550; 82575; 82595; 82803; 82805; 82962; 83010; 83605; 83615; 83735; 83880; 84100; 84145; 84300; 84443; 85025; 85045; 85362; 85378; 85384; 85610; 85730; 86140; 86403; 86705; 86706; 86709; 86803; 86880; 87040; 87070; 87086; 87102; 87205; 87206; 87340; 87449; 87522; 87641; 87806; 89050; 90935; 93306; 93880; 93970; 94002; 94003; 94640; 94799; 96365; 96367; 96372; 96375; 99285; A4570; C9113; G0378; J0282; J0330; J0610; J0696; J0743; J1100; J1650; J1940; J1953; J2060; J2250; J2270; J2405; J2543; J3010; J3370; J3411; J3480; J3490; J7030; J7040; J7050; J7060; P9047; Q3014; Q9967